=== PATIENT | female | born 1935 | race Hispanic/Latino ===

== ENCOUNTER 2016-07-16 09:32 | Emergency (ER) | payer MEDICARE, BC ==
[2016-07-16 09:47] VITALS: BMI 34.2
[2016-07-16 09:51] VITALS: TEMP 98.2; O2SAT 96
[2016-07-16] MEDS ORDERED: Tmp-Smz 800 mg-160 mg DS Tab PO STA (10:09)
--- NOTE | 2016-07-16 10:09 | ED PDOC ---
Arrival/HPI - General Chief Complaint: Abnormal Skin Integrity Time Seen by Provider: 07/16/16 10:02 Historian: Patient - History of Present Illness Narrative History of Present Illness (Text): 07/16/16 10:02 80 y/o female, pmh including htn/CAD/DM/hypothyroidism, allergic to penicillin, last tetanu 2 years ago, c/o lt. forearm tear x 2 days. Pt. stated that she is on the coumadin, hit the lt. forearm against the furniture about 2 days ago, resulted in small skin tear, here for the wound evaluation and management. Pt. has no forearm pain, no numbness or tingling, no difficulty moving the entire lt. upper extremity, no night sweat, no chest pain or shortness of breath, no change on the coumadin 2.5mg po, no other medical or psychological complaints. Past Medical History - Provider Review Nursing Documentation Reviewed: Yes - Infectious Disease Hx of Infectious Diseases: None - Tetanus Immunization Tetanus Immunization: Unknown - Reproductive Menopause: Yes - Cardiac Hx Cardiac Disorders: Yes Hx Hypertension: Yes Hx Pacemaker: No - Pulmonary Hx Respiratory Disorders: Yes (SMOKED A TEENAGER.QUIT) - Neurological Hx Neurological Disorder: Yes HX Cerebrovascular Accident: Yes Hx Dizziness: Yes (VERTIGO) - HEENT Hx HEENT Disorder: Yes Hx Cataracts: Yes (WITH SX) - Renal Hx Renal Disorder: No - Endocrine/Metabolic Hx Endocrine Disorders: Yes Hx Diabetes Mellitus Type 2: Yes Hx Hypothyroidism: Yes - Hematological/Oncological Hx Blood Disorders: Yes Hx Shingles: Yes - Integumentary Hx Dermatological Disorder: Yes Hx Eczema: Yes Other/Comment: 06-22-16 UNDER THE BREAST FOLD,ABDOMINAL FOLD,BILATERAL GROIN AREA WITH MASD.REDDENED SKIN,MOIST AREA WITH FOUL FUNGAL SMELL. BILATERAL LE EDEMA MORE TO LEFT.EDEMA +2." TOP OF FOOT.PUFFY " - Musculoskeletal/Rheumatological Hx Musculoskeletal Disorders: Yes (HAIRLINE FX TO ANKLE) Hx Falls: Yes Hx Unsteady Gait: Yes (CANE) - Gastrointestinal Hx Gastrointestinal Disorders: Yes (CHOLECYSTECTOMY,APPENDECTOMY,) Hx Gastroesophageal Reflux: Yes - Genitourinary/Gynecological Hx Genitourinary Disorders: No - Psychiatric Hx Emotional Abuse: No Hx Physical Abuse: No Hx Substance Use: No - Surgical History Hx Appendectomy: Yes Hx Cardiac Catheterization: Yes (3 stents) Hx Cholecystectomy: Yes Hx Coronary Stent: Yes Hx Hysterectomy: Yes Other/Comment: TONSILLECTOMY - Anesthesia Hx Anesthesia Reactions: No Hx Malignant Hyperthermia: No - Suicidal Assessment Feels Threatened In Home Enviroment: No Family/Social History - Physician Review Nursing Documentation Reviewed: Yes Family/Social History: Unknown Family HX Smoking Status: Former Smoker Hx Alcohol Use: No Hx Substance Use: No Hx Substance Use Treatment: No Allergies/Home Meds Allergies/Adverse Reactions: Allergies lactose Allergy (Severe, Verified 06/22/16 20:17) DIARRHEA Penicillins Allergy (Severe, Verified 06/22/16 20:17) Epigastric Pain Pork/Porcine Containing Products Allergy (Severe, Verified 06/22/16 20:17) VOMITING Home Medications: Home Meds Medication Instructions Recorded Confirmed Cinacalcet [Sensipar] 30 mg PO TTS 10/04/15 06/22/16 Citalopram Hydrobromide [Celexa] 20 mg PO QAM 10/04/15 06/22/16 Clonazepam [Klonopin] 0.5 mg PO BID 10/04/15 06/22/16 Insulin Human NPH/Reg [HumuLIN 20 units SC ACBD 10/04/15 07/16/16 70/30 (NPH/Reg)] Isosorbide Mononitrate [Imdur] 60 mg PO QAM 10/04/15 07/16/16 Levothyroxine [Synthroid] 0.112 mg PO QAM 10/04/15 07/16/16 Loperamide [Imodium] 2 mg PO PRN PRN 10/04/15 07/16/16 Meclizine HCl [Antivert] 12.5 mg PO BID PRN 10/04/15 07/16/16 Omeprazole [Prilosec] 20 mg PO QAM 10/04/15 07/16/16 Ursodiol [Actigall] 300 mg PO BID 10/04/15 07/16/16 Warfarin Sodium [Jantoven] 2.5 mg PO HS 10/04/15 07/16/16 Review of Systems - Review of Systems Constitutional: absent: Fatigue, Fevers Eyes: absent: Vision Changes ENT: absent: Hearing Changes Cardiovascular: absent: Chest Pain Gastrointestinal: absent: Abdominal Pain, Nausea, Vomiting Musculoskeletal: absent: Arthralgias, Back Pain Skin: Other (abrasion). absent: Pruritis, Skin Lesions, Laceration, Abscess, Ulcer, Cellulitis Neurological: absent: Headache, Dizziness, Focal Weakness, Gait Changes, Speech Changes, Facial Droop, Disequilibrium Physical Exam Vital Signs Reviewed: Yes Vital Signs Temp Pulse Resp BP Pulse Ox 07/16/16 09:32 98.2 F 73 18 142/76 96 Temperature: Afebrile Blood Pressure: Normal Pulse: Regular Respiratory Rate: Normal Appearance: Positive for: Well-Appearing, Non-Toxic, Comfortable Pain Distress: None Mental Status: Positive for: Alert and Oriented X 3 - Systems Exam Head: Present: Atraumatic, Normocephalic Pupils: Present: PERRL Extroacular Muscles: Present: EOMI Conjunctiva: Present: Normal Mouth: Present: Moist Mucous Membranes Neck: Present: Normal Range of Motion Respiratory/Chest: Present: Clear to Auscultation, Good Air Exchange. No: Respiratory Distress, Accessory Muscle Use Cardiovascular: Present: Regular Rate and Rhythm, Normal S1, S2. No: Murmurs Abdomen: Present: Normal Bowel Sounds. No: Tenderness, Distention, Peritoneal Signs Back: Present: Normal Inspection Upper Extremity: Present: Normal Inspection, Other (Lt. upper extremity: visible triangular shape with approx. 1cm length noted, no cellulitis or streaking, no ulcers, no bony tenderness, no scaphoid tenderness, FROM without limitation, sensation intact, motor 5/5, +radial pulse, capillary refill< 2 seconds, neurovascular intact. ). No: Cyanosis, Edema Lower Extremity: Present: Normal Inspection. No: Edema Neurological: Present: GCS=15, CN II-XII Intact, Speech Normal Skin: Present: Warm, Dry, Normal Color. No: Rashes Psychiatric: Present: Alert, Oriented x 3, Normal Insight, Normal Concentration Medical Decision Making ED Course and Treatment: 07/16/16 10:15 -will check INR level -Bactrim ds for prophyatic antibiotic -wound irrigate with normal saline, clean with betadine, bacitracin and gauze dressing. 07/16/16 10:49 -Discharge home with bactrim ds, bacitracin ointment, YOUR INR TODAY IS 1.45, follow up with your own pmd within 2 days for wound check and coumadin adjustment, return to the ER for any new or worsening signs or symptoms. - Lab Interpretations Lab Results: Lab Results 07/16/16 10:11: PT 15.7 H, INR 1.45 H, APTT 32.9 H I have reviewed the lab results: Yes Interpretation: Abnormal lab values (INR 1.45) - Medication Orders Current Medication Orders: Discontinued Medications Trimethoprim/Sulfamethoxazole (Bactrim Ds Tab) 1 tab PO STAT STA PRN Reason: Protocol Stop: 07/16/16 10:10 Last Admin: 07/16/16 10:29 Dose: 1 TAB - PA / [employer] / Resident Statement /DO has reviewed & agrees with the documentation as recorded. Disposition/Present on Arrival - Present on Arrival Any Indicators Present on Arrival: No History of DVT/PE: No History of Uncontrolled Diabetes: No Urinary Catheter: No History of Decub. Ulcer: No History Surgical Site Infection Following: None - Disposition Have Diagnosis and Disposition been Completed?: Yes Diagnosis: Abrasion, INR (international normal ratio) abnormal Disposition: HOME/ ROUTINE Disposition Time: 10:16 Patient Plan: Discharge Patient Problems: Current Active Problems Problem Status Diagnosed Abdominal pain Acute Cholecystitis Acute Dizziness Acute Edema Acute Hypokalemia Acute Condition: GOOD Discharge Instructions (ExitCare): Abrasion (ED) Print Language: AMHARIC Additional Instructions: Discharge home with bactrim ds, bacitracin ointment, YOUR INR TODAY IS 1.45, follow up with your own pmd within 2 days for wound check and coumadin adjustment, return to the ER for any new or worsening signs or symptoms. Prescriptions: Bacitracin 1 appl TP BID #1 tube Sulfamethoxazole/Trimethoprim [Bactrim DS 800 mg-160 mg] 1 tab PO BID #14 tab Referrals: Deena Jones MD [Staff Provider] - Follow up with primary Forms: WORK NOTE
[2016-07-16 10:34] LABS: INR 1.45 (0.93-1.08); PARTIAL THROMBOPLASTIN TIME 32.9 Seconds (23.7-30.8)
[2016-07-16 11:19] VITALS: BP 138/70; PULSE 77; RESP 16
== END 2016-07-16 11:04 | disposition home or self-care (01) ==
LOC: ED 09:32
DX: S50.812A Abrasion of left forearm, initial encounter (principal); W22.03XA Walked into furniture, initial encounter; Y93.9 Activity, unspecified; Y92.89 Other specified places as the place of occurrence of the external cause; R79.1 Abnormal coagulation profile

== ENCOUNTER 2016-07-18 10:41 | Emergency (ER) | payer MEDICARE, BC ==
[2016-07-18 10:57] VITALS: BMI 34.7
[2016-07-18 11:01] VITALS: BP 140/76; PULSE 77; RESP 15; TEMP 97.6; O2SAT 95
--- NOTE | 2016-07-18 11:33 | ED PDOC ---
Arrival/HPI - General Chief Complaint: Wound Check Time Seen by Provider: 07/18/16 11:18 Historian: Patient - History of Present Illness Narrative History of Present Illness (Text): 07/18/16 11:33 80 year old female returns to the emergency department for wound check because her PMD is not in the office today. Patient states she was treated in the emergency department two days ago for the same complaint of wound on the left forearm. At that time, she had a bleeding skin tear on the forearm. Patient states she was started on antibiotics and is taking them as prescribed. Denies pain or pus to the area. No longer bleeding. PMD: Dr. Jones Time/Duration: < week Symptom Course: Improving Modifying Factors (Text): None Associated Symptoms (Text): None Past Medical History - Provider Review Nursing Documentation Reviewed: Yes - Infectious Disease Hx of Infectious Diseases: None - Tetanus Immunization Tetanus Immunization: Unknown - Cardiac Hx Cardiac Disorders: Yes Hx Hypertension: Yes Hx Pacemaker: No - Pulmonary Hx Respiratory Disorders: No - Neurological Hx Neurological Disorder: Yes HX Cerebrovascular Accident: Yes Hx Dizziness: Yes (VERTIGO) - HEENT Hx HEENT Disorder: Yes Hx Cataracts: Yes (WITH SX) - Renal Hx Renal Disorder: No - Endocrine/Metabolic Hx Endocrine Disorders: Yes Hx Diabetes Mellitus Type 2: Yes Hx Hypothyroidism: Yes - Hematological/Oncological Hx Blood Disorders: Yes Hx Shingles: Yes - Integumentary Hx Dermatological Disorder: Yes Hx Eczema: Yes - Musculoskeletal/Rheumatological Hx Musculoskeletal Disorders: Yes (HAIRLINE FX TO ANKLE) Hx Falls: Yes Hx Unsteady Gait: Yes (CANE) - Gastrointestinal Hx Gastrointestinal Disorders: Yes (CHOLECYSTECTOMY,APPENDECTOMY,) Hx Gastroesophageal Reflux: Yes - Genitourinary/Gynecological Hx Genitourinary Disorders: No - Psychiatric Hx Psychophysiologic Disorder: Yes Hx Anxiety: Yes Hx Emotional Abuse: No Hx Physical Abuse: No Hx Substance Use: No - Surgical History Hx Appendectomy: Yes Hx Cardiac Catheterization: Yes (3 stents) Hx Cholecystectomy: Yes Hx Coronary Stent: Yes Hx Hysterectomy: Yes Other/Comment: TONSILLECTOMY - Anesthesia Hx Anesthesia Reactions: No Hx Malignant Hyperthermia: No - Suicidal Assessment Feels Threatened In Home Enviroment: No Family/Social History - Physician Review Nursing Documentation Reviewed: Yes Family/Social History: Unknown Family HX Smoking Status: Former Smoker Hx Alcohol Use: No Hx Substance Use: No Hx Substance Use Treatment: No Allergies/Home Meds Allergies/Adverse Reactions: Allergies lactose Allergy (Severe, Verified 07/18/16 10:57) DIARRHEA Penicillins Allergy (Severe, Verified 07/18/16 10:57) Epigastric Pain Pork/Porcine Containing Products Allergy (Severe, Verified 07/18/16 10:57) VOMITING Home Medications: Home Meds Medication Instructions Recorded Confirmed Cinacalcet [Sensipar] 30 mg PO TTS 10/04/15 06/22/16 Citalopram Hydrobromide [Celexa] 20 mg PO QAM 10/04/15 06/22/16 Clonazepam [Klonopin] 0.5 mg PO BID 10/04/15 06/22/16 Insulin Human NPH/Reg [HumuLIN 20 units SC ACBD 10/04/15 07/16/16 70/30 (NPH/Reg)] Isosorbide Mononitrate [Imdur] 60 mg PO QAM 10/04/15 07/16/16 Levothyroxine [Synthroid] 0.112 mg PO QAM 10/04/15 07/16/16 Loperamide [Imodium] 2 mg PO PRN PRN 10/04/15 07/16/16 Meclizine HCl [Antivert] 12.5 mg PO BID PRN 10/04/15 07/16/16 Omeprazole [Prilosec] 20 mg PO QAM 10/04/15 07/16/16 Ursodiol [Actigall] 300 mg PO BID 10/04/15 07/16/16 Warfarin Sodium [Jantoven] 2.5 mg PO HS 10/04/15 07/16/16 Review of Systems - Physician Review All systems were reviewed & negative as marked: Yes - Review of Systems Skin: Other (left forearm wound already evaluated for with no new complaints). absent: Rash Physical Exam - Physical Exam Narrative Physical Exam (Text): Constitutional: No acute distress. Head: Normocephalic. Atraumatic. Eyes: PERRL. ENT: Moist mucous membranes. Musculoskeletal: No tenderness or swelling of extremities. Skin: Left forearm wound healing properly with no surrounding erythema, no induration, no discharge, no tenderness Neurologic: Alert, no focal deficit. Vital Signs Reviewed: Yes Vital Signs Temp Pulse Resp BP Pulse Ox 07/18/16 10:57 97.6 F 77 15 140/76 95 Temperature: Afebrile Blood Pressure: Normal Pulse: Regular Respiratory Rate: Normal Appearance: Positive for: Well-Appearing, Non-Toxic, Comfortable Pain Distress: None Mental Status: Positive for: Alert and Oriented X 3 Medical Decision Making ED Course and Treatment: Impression: 80 year old female presents for wound check and INR level because PMD is out of the office. Plan: -- Hematology -- Reassess and disposition Prior Visits: Notes and results from previous visits were reviewed. Patient last seen in the ED on 07/16/16 for laceration to left arm and discharged home. Progress Notes: Patient was on warfarin but stopped due to bleeding skin tear. Will check today. Patient wishes to leave after blood draw and not wait for results. Discussed with Dr. Jones. He states patient can call his office tomorrow, he will follow up results and adjust warfarin accordingly. - Scribe Statement The provider has reviewed the documentation as recorded by the Cyn Robert Provider Scribe Attestation: All medical record entries made by the Cyn were at my direction and personally dictated by me. I have reviewed the chart and agree that the record accurately reflects my personal performance of the history, physical exam, medical decision making, and the department course for this patient. I have also personally directed, reviewed, and agree with the discharge instructions and disposition. Disposition/Present on Arrival - Present on Arrival Any Indicators Present on Arrival: No History of DVT/PE: No History of Uncontrolled Diabetes: No Urinary Catheter: No History of Decub. Ulcer: No History Surgical Site Infection Following: None - Disposition Have Diagnosis and Disposition been Completed?: Yes Diagnosis: Visit for wound check Disposition: HOME/ ROUTINE Disposition Time: 12:08 Patient Plan: Discharge Patient Problems: Current Active Problems Problem Status Diagnosed Abdominal pain Acute Cholecystitis Acute Dizziness Acute Edema Acute Hypokalemia Acute Condition: STABLE Discharge Instructions (ExitCare): Skin Tear (ED) Referrals: Deena Jones MD [Primary Care Provider] - Follow up with primary
[2016-07-18 12:39] LABS: INR 1.63 (0.93-1.08); PARTIAL THROMBOPLASTIN TIME 34.9 Seconds (23.7-30.8)
== END 2016-07-18 12:31 | disposition home or self-care (01) ==
LOC: ED 10:41
DX: Z51.89 Encounter for other specified aftercare (principal); I10 Essential (primary) hypertension

== ENCOUNTER 2016-09-28 20:54 | Inpatient (IN) | payer MEDICARE, BC ==
[2016-09-28 21:30] LABS: ADD MANUAL DIFF? NO
--- NOTE | 2016-09-28 21:31 | ED PDOC ---
Arrival/HPI - General Time Seen by Provider: 09/28/16 20:59 Historian: Patient - History of Present Illness Narrative History of Present Illness (Text): 09/28/16 21:30 A 81 year old female, whose past medical history includes hypertension, old stroke and atrial fibrillation (on Coumadin), presents to the emergency department complaining of chest pain and weakness. Patient states symptoms started earlier today. Patient notes currently chest pain is resolved. Patient can't characterize chest pain. pt later noted that Patient notes she has "difficulty writing her checks". pt states she specifically "she could not get the words out". pt was concerned as she had previous cva. onset one hour ago. but denies fevers, headache or any other complaints at this time. 09/28/16 22:17 Symptom Onset: Sudden Symptom Course: Resolved Activities at Onset: Rest Context: Home Past Medical History - Provider Review Nursing Documentation Reviewed: Yes - Infectious Disease Hx of Infectious Diseases: None - Tetanus Immunization Tetanus Immunization: Unknown - Cardiac Hx Cardiac Disorders: Yes Hx Hypertension: Yes Hx Pacemaker: No - Pulmonary Hx Respiratory Disorders: No - Neurological Hx Neurological Disorder: Yes HX Cerebrovascular Accident: Yes Hx Dizziness: Yes (VERTIGO) - HEENT Hx HEENT Disorder: Yes Hx Cataracts: Yes (WITH SX) - Renal Hx Renal Disorder: No - Endocrine/Metabolic Hx Endocrine Disorders: Yes Hx Diabetes Mellitus Type 2: Yes Hx Hypothyroidism: Yes - Hematological/Oncological Hx Blood Disorders: Yes Hx Shingles: Yes - Integumentary Hx Dermatological Disorder: Yes Hx Eczema: Yes - Musculoskeletal/Rheumatological Hx Musculoskeletal Disorders: Yes (HAIRLINE FX TO ANKLE) Hx Falls: Yes Hx Unsteady Gait: Yes (CANE) - Gastrointestinal Hx Gastrointestinal Disorders: Yes (CHOLECYSTECTOMY,APPENDECTOMY,) Hx Gastroesophageal Reflux: Yes - Genitourinary/Gynecological Hx Genitourinary Disorders: No - Psychiatric Hx Psychophysiologic Disorder: Yes Hx Anxiety: Yes Hx Emotional Abuse: No Hx Physical Abuse: No Hx Substance Use: No - Surgical History Hx Appendectomy: Yes Hx Cardiac Catheterization: Yes (3 stents) Hx Cholecystectomy: Yes Hx Coronary Stent: Yes Hx Hysterectomy: Yes Other/Comment: TONSILLECTOMY - Anesthesia Hx Anesthesia Reactions: No Hx Malignant Hyperthermia: No - Suicidal Assessment Feels Threatened In Home Enviroment: No Family/Social History - Physician Review Nursing Documentation Reviewed: Yes Family/Social History: No Known Family HX Smoking Status: Former Smoker Hx Alcohol Use: No Hx Substance Use: No Hx Substance Use Treatment: No Allergies/Home Meds Allergies/Adverse Reactions: Allergies lactose Allergy (Severe, Verified 09/29/16 15:57) DIARRHEA Penicillins Allergy (Severe, Verified 09/29/16 15:57) Epigastric Pain Pork/Porcine Containing Products Allergy (Severe, Verified 09/29/16 15:57) VOMITING Home Medications: Home Meds Medication Instructions Recorded Confirmed Citalopram Hydrobromide [Celexa] 20 mg PO QAM 10/04/15 09/30/16 Insulin Human NPH/Reg [HumuLIN 25 units SC ACBD 10/04/15 09/30/16 70/30 (NPH/Reg)] Isosorbide Mononitrate [Imdur] 60 mg PO QAM 10/04/15 09/30/16 Meclizine HCl [Antivert] 12.5 mg PO BID PRN 10/04/15 09/30/16 Warfarin Sodium [Jantoven] 2.5 mg PO HS 10/04/15 09/30/16 Budesonide [Entocort EC] 2 cap PO DAILY 09/28/16 09/30/16 Levothyroxine [Synthroid] 112 mcg PO DAILY 09/28/16 09/30/16 Omeprazole [Omeprazole] 20 mg PO DAILY 09/28/16 09/30/16 amLODIPine [Norvasc] 5 mg PO DAILY 09/28/16 09/30/16 clonazePAM [clonAZEPAM] 0.5 mg PO BID 09/29/16 09/30/16 Review of Systems - Review of Systems Constitutional: Other (weakness). absent: Fevers Eyes: Normal ENT: Normal Respiratory: Normal Cardiovascular: Chest Pain Gastrointestinal: Normal Genitourinary Female: Normal Musculoskeletal: Normal Skin: Normal Neurological: Normal. absent: Headache Endocrine: Normal Hemo/Lymphatic: Normal Psychiatric: Normal Physical Exam Vital Signs Reviewed: Yes Vital Signs Temp Pulse Pulse Resp BP Pulse Ox 09/29/16 05:20 63 16 136/82 98 09/29/16 01:11 73 16 128/76 98 09/28/16 21:00 80 09/28/16 20:59 98.3 F 75 18 96 09/28/16 20:58 98.3 F 89 18 156/62 H 96 Temperature: Afebrile Blood Pressure: Hypertensive Pulse: Regular Respiratory Rate: Normal Appearance: Positive for: Well-Appearing, Non-Toxic, Comfortable Pain Distress: None Mental Status: Positive for: Alert and Oriented X 3 - Systems Exam Head: Present: Atraumatic, Normocephalic Pupils: Present: PERRL Extroacular Muscles: Present: EOMI Conjunctiva: Present: Normal Mouth: Present: Moist Mucous Membranes Neck: Present: Normal Range of Motion Respiratory/Chest: Present: Clear to Auscultation, Good Air Exchange. No: Respiratory Distress, Accessory Muscle Use Cardiovascular: Present: Regular Rate and Rhythm, Normal S1, S2. No: Murmurs Abdomen: Present: Normal Bowel Sounds. No: Tenderness, Distention, Peritoneal Signs Back: Present: Normal Inspection Upper Extremity: Present: Normal Inspection. No: Cyanosis, Edema Lower Extremity: Present: Normal Inspection. No: Edema Neurological: Present: GCS=15, CN II-XII Intact, Speech Normal Skin: Present: Warm, Dry, Normal Color. No: Rashes Psychiatric: Present: Alert, Oriented x 3, Normal Insight, Normal Concentration Medical Decision Making ED Course and Treatment: 09/28/16 21:26 Impression: A 81 year old male with chest pain and weakness. Differential Diagnosis included but are not limited to: ro acs - pt later reported "difficulty writing her checks", and difficulty "getting words out". neuro intact in emergency room. dr tellez bedside upon arrival. codets stroke Plan: -- EKG -- CT head -- chest xray -- labs -- Urinalysis -- Reassess and disposition Prior Visits: Notes and results from previous visits were reviewed. Patient last reported to the emergency department on 07/18/16 for evaluation of wound check and INR level. Progress Notes: 09/28/16 21:31 Code stroke called. Case discussed with Dr. Wisdom, symptoms are resolved. low nih,, not TPA candidate. CT Head Without Intravenous Contrast IMPRESSION: Sinus disease involving left maxillary sinus, evidence of previous left maxillary sinus surgery, no acute intracranial process is seen. Age-related atrophy and chronic white matter ischemic changes as described. Dictated and Authenticated by: Mateus Stein MD 09/28/2016 9:49 PM Eastern Time ([place] & [place]) 09/28/16 22:[address] tellez. accepts to [facility] for admission. - Lab Interpretations Microbiology Results: Microbiology Results 09/28/16 21:23 Blood-Venous Blood Culture - Preliminary NO GROWTH AFTER 24 HOURS 09/28/16 21:00 Blood-Venous Blood Culture - Preliminary NO GROWTH AFTER 24 HOURS Lab Results: 09/28/16 21:23 09/28/16 21:23 Lab Results 09/28/16 21:23: Sodium 138, Potassium 3.3 L, Chloride 105, Carbon Dioxide 27, Anion Gap 9 L, BUN 14, Creatinine 1.0, Est GFR ( Amer) > 60, Est GFR (Non -Af Amer) 53, Random Glucose 207 H, Calcium 9.5, Magnesium 1.6 L, Total Bilirubin 1.5 H, AST 16, ALT 21, Alkaline Phosphatase 130, Lactate Dehydrogenase 402, Total Creatine Kinase 48, Troponin I < 0.01, Total Protein 6.6, Albumin 3.4, Globulin 3.3, Albumin/Globulin Ratio 1.0 L 09/28/16 21:23: PT 22.9 H, INR 2.12 H, APTT 39.7 H 09/28/16 21:23: WBC 6.4 D, RBC 4.28, Hgb 12.8, Hct 38.9, MCV 90.9, MCH 29.9, MCHC 32.9, RDW 13.3, Plt Count 200, MPV 11.4 H, Gran % 66.8, Lymph % (Auto) 22.4 , Haakon % (Auto) 8.5 H, Eos % (Auto) 2.0, Baso % (Auto) 0.3, Gran # 4.30, Lymph # 1.4, Haakon # 0.6, Eos # 0.1, Baso # 0.02 I have reviewed the lab results: Yes - RAD Interpretation Radiology Orders: 09/28/16 21:15 CHEST PORTABLE [RAD] Stat 09/28/16 21:16 HEAD W/O CONTRAST [CT] Stat - EKG Interpretation Interpreted by ED Physician: Yes Type: 12 lead EKG - Medication Orders Current Medication Orders: Discontinued Medications Amlodipine Besylate (Norvasc) 5 mg PO DAILY RYAN Last Admin: 09/30/16 09:18 Dose: 5 mg Aspirin (Aspirin) 325 mg PO STAT STA Stop: 09/28/16 22:14 Last Admin: 09/28/16 22:54 Dose: 325 mg Citalopram Hydrobromide (Celexa) 20 mg PO QAM [facility] Last Admin: 09/30/16 09:18 Dose: 20 mg Clonazepam (Klonopin) 0.5 mg PO DAILY [facility] PRN Reason: Protocol Last Admin: 09/30/16 09:18 Dose: 0.5 mg Home Med (Home Med) 1 unit PO DAILY [facility] Last Admin: 09/29/16 10:56 Dose: 1 unit Home Med (Home Med) 2 unit PO DAILY [facility] Last Admin: 09/30/16 09:19 Dose: 2 unit Insulin Human Regular (Humulin R Low) 0 units SC [facility] PRN Reason: Protocol Last Admin: 09/29/16 21:06 Dose: Not Given Non-Admin Reason: Blood Sugar Parameter Isosorbide Mononitrate (Imdur) 60 mg PO QAM [facility] Last Admin: 09/30/16 09:18 Dose: 60 mg Levothyroxine Sodium (Synthroid) 112 mcg PO DAILY [facility] Last Admin: 09/30/16 09:18 Dose: 112 mcg Magnesium Oxide (Mag-Ox) 400 mg PO BID [facility] Last Admin: 09/30/16 09:18 Dose: 400 mg Pantoprazole Sodium (Protonix Ec Tab) 40 mg PO ACB [facility] Last Admin: 09/29/16 08:16 Dose: 40 mg Pneumococcal Polyvalent Vaccine (Pneumovax 23 Vaccine) 0.5 ml IM .ONCE ONE Stop: 09/29/16 18:35 Potassium Chloride (K-Dur 20 Meq Er Tab) 40 meq PO STAT STA Stop: 09/28/16 21:56 Last Admin: 09/28/16 22:01 Dose: Not Given Non-Admin Reason: Patient Refused Potassium Chloride (Potassium Chloride Oral Soln) 40 meq PO STAT STA Stop: 09/28/16 22:02 Last Admin: 09/28/16 22:54 Dose: 40 meq Warfarin Sodium (Coumadin) 2.5 mg PO 1800 ONE PRN Reason: Protocol Stop: 09/29/16 18:01 Last Admin: 09/29/16 18:00 Dose: 2.5 mg Warfarin Sodium (Coumadin) 5 mg PO 1800 RYAN PRN Reason: Protocol Last Admin: 09/30/16 11:57 Dose: 5 mg NIHSS Scale ([place]) Time Performed: 21:31 - How Severe is the Stoke Baseline Level of Consciousness: 0=Alert LOC to Questions: 0=Both comments correct LOC to commands: 0=Obeys both correctly Best Gaze: 0=Normal Visual: 0=No visual loss Facial: 0=Normal Motor Arm - Left: 0=No drift Motor Arm - Right: 0=No drift Motor Leg - Left: 0=No drift Motor Leg - Right: 0=No drift Limb Ataxia: 0=Absent Sensory: 0=Normal Best Language: 0=No aphasia Dysarthia: 0=Normal articulation Extinction & Inattention (Neglect): 0=Normal, no object Score: 0 Risk Level: No Stroke Risk rTPA Inclusion/Exclusion - Refusal of Treatment Patient Refused Treatment: No - Inclusion Criteria for Altepase Patient is 18 years or Older: Yes The Clinical Diagnosis of Ischemic Stroke That is Causing a Potentially Disabling Neurological Deficit: No Time of Onset is Well Established to be Less Than 270 Minute Before Treatment Would Begin: Yes Risk/Benefit Discussed With Patient/Family Member Present: No - Scribe Statement The provider has reviewed the documentation as recorded by the Cyn rBown Provider Scribe Attestation: All medical record entries made by the Kyungibdelvin were at my direction and personally dictated by me. I have reviewed the chart and agree that the record accurately reflects my personal performance of the history, physical exam, medical decision making, and the department course for this patient. I have also personally directed, reviewed, and agree with the discharge instructions and disposition. Disposition/Present on Arrival - Present on Arrival Any Indicators Present on Arrival: No History of DVT/PE: No History of Uncontrolled Diabetes: No Urinary Catheter: No History Surgical Site Infection Following: None - Disposition Have Diagnosis and Disposition been Completed?: Yes Diagnosis: Chest pain, Weakness Disposition: HOSPITALIZED Disposition Time: 22:20 Condition: STABLE
[2016-09-28 21:41] LABS: BASO # 0.02 K/mm3 (0.0-2.0); BASO % 0.3 % (0.0-3.0); EOS # 0.1 (0.0-0.7); GRAN % 66.8 % (50.0-68.0); HEMATOCRIT 38.9 % (36.0-48.0); LYMPH # 1.4 (1.2-3.4); LYMPH % 22.4 % (22.0-35.0); MEAN CELL VOLUME 90.9 fL (80.0-105.0); MEAN CORPUSCULAR HEMOGLOBIN 29.9 pg (25.0-35.0); MEAN CORPUSCULAR HGB CONC 32.9 g/dl (31.0-37.0); MEAN PLATELET VOLUME 11.4 fl (7.0-11.0); MONO # 0.6 (0.1-0.6); MONO % 8.5 % (1.0-6.0); PLATELET COUNT 200 10^3/uL (120.0-450.0); RED CELL DISTRIBUTION WIDTH 13.3 % (11.5-14.5); WHITE BLOOD COUNT 6.4 10^3/ul (4.5-11.0)
[2016-09-28 21:46] LABS: INR 2.12 (0.93-1.08); PARTIAL THROMBOPLASTIN TIME 39.7 Seconds (23.7-30.8)
[2016-09-28 21:52] LABS: ALKALINE PHOSPHATASE 130 U/L (38-133); ALT/SGPT 21 U/L (7-56); AST/SGOT 16 U/L (15-39); BILIRUBIN,TOTAL 1.5 mg/dL (0.2-1.3); BLOOD UREA NITROGEN 14 mg/dL (7-21); CALCIUM 9.5 mg/dL (8.4-10.5); CARBON DIOXIDE 27 mmol/L (21-33); CHLORIDE 105 mmol/L (98-107); GFR AFRICAN-AMERICAN > 60; GLUCOSE,RANDOM 207 mg/dL (70-110); MAGNESIUM 1.6 mg/dL (1.7-2.2); POTASSIUM 3.3 mmol/L (3.6-5.0); SODIUM 138 mmol/L (132-148); TOTAL PROTEIN 6.6 g/dL (5.8-8.3)
[2016-09-28] MEDS ORDERED: Potassium Chloride 20 mEq ER Tab PO STA (21:55)
[2016-09-28] MEDS ORDERED: Potassium Chloride 40 mEq/30 ml LIQ UD PO STA (22:01)
[2016-09-28 22:04] LABS: TROPONIN I < 0.01 ng/mL
[2016-09-28 22:41] LABS: PH,URINE 6.5 (4.7-8.0); URINE BILIRUBIN NEGATIVE (NEGATIVE); URINE BLOOD NEGATIVE (NEGATIVE); URINE GLUCOSE (UA) NEGATIVE (NEGATIVE); URINE KETONE NEGATIVE (NEGATIVE); URINE LEUKOCYTE ESTERASE NEGATIVE Leu/uL (NEGATIVE); URINE PROTEIN NEGATIVE mg/dL (<30 mg/dL); URINE UROBILINOGEN 0.2 E.U./dL (<1 E.U./dL)
[2016-09-28 22:46] LABS: URINE APPEARANCE CLEAR (CLEAR); URINE COLOR STRAW (YELLOW)
--- NOTE | 2016-09-28 23:41 | HP ---
HISTORY OF PRESENT ILLNESS: A 81-year-old female brought to [facility] by her daughter. The patient states that she developed chest pain. She was in the process of attempting to write bigg e bills. She also noticed that she was having difficulty writing. She denies any shortness of breat h, loss of consciousness. She has been having chills off and on for several days. SOCIAL HISTORY: She is a nonsmoker, nondrinker, nondrug user. ALLERGY HISTORY: LACTOSE, PENICILLIN, PORK PRODUCTS. PAST MEDICAL HISTORY: Stroke with cerebellar ataxia, insulin-dependent diabetes, anxiety disorder, u rinary tract infection, vertigo, paroxysmal atrial fibrillation, insulin-dependent diabetes, colitis, hypothyroid disease, hypertension, ____ cyst, gait disorder. PHYSICAL EXAMINATION: GENERAL: She seems to be alert and oriented x 3. VITAL SIGNS: Temp is 98.3, pulse is 89, blood pressure is 156/62, respiratory rate is 18, oxygen sat uration was 96% on room air. NECK: Supple. LUNGS: Show diminished breath sounds at the bases. HEART: An S1, S2 rhythm. Grade II/ systolic murmur. ABDOMEN: Soft, scaphoid with positive bowel sounds. EXTREMITIES: Show no evidence of edema. NEUROLOGIC: The patient is alert and oriented x 3. LABORATORY DATA: Shows the sodium 138, potassium 3.3, chloride 105, BUN of 14, creatinine of 1. Ran dom blood sugar is 207. Magnesium is 1.6. Total bilirubin is 1.5. Troponin is 0.01. PT is 22.9 wi th an INR of 2.12, PTT is 39.7. CBC shows WBC of 6.4, RBC 4.28, hemoglobin 12.8, hematocrit 38.9, MC V of 90, platelet count is 200. Emergency Room physician reports that the chest x-ray is clear and t hat the CT of the head shows no acute findings. Code stroke was called given the patient's clinical presentation by the Emergency Room physician and a consult was placed with neurology. Cardiac enzymes will be ordered and consult will be placed with cardiology. The patient will be pancultured of blood and urine, history of chills. We will get an infectious disease consult, rule out systemic inflammatory response disorder. We will request an ec hocardiogram as well. Follow the patient's cardiac enzymes, follow her blood sugar. Clinically brittney tor the patient on telemetry. More than 50 minutes have been spent reviewing the data, discussing the treatment plan with the patie nt and the family. Deena Jones MD cc: [id number] TT: 09/28/2016 23:41:22 sn
[2016-09-29 06:26] LABS: INR 2.2 (0.93-1.08)
[2016-09-29 06:35] LABS: BLOOD UREA NITROGEN 15 mg/dL (7-21); CALCIUM 9.5 mg/dL (8.4-10.5); CARBON DIOXIDE 29 mmol/L (21-33); CHLORIDE 107 mmol/L (98-107); GFR AFRICAN-AMERICAN > 60; GLUCOSE,RANDOM 174 mg/dL (70-110); POTASSIUM 3.6 mmol/L (3.6-5.0); SODIUM 141 mmol/L (132-148)
[2016-09-29 07:00] LABS: TROPONIN I < 0.01 ng/mL
[2016-09-29] MEDS ORDERED: Pantoprazole 40 mg EC Tab PO SCH (07:30)
--- NOTE | 2016-09-29 09:15 | CT ---
PROCEDURE: CT HEAD WITHOUT CONTRAST. HISTORY: weakness COMPARISON: 06/22/2016. TECHNIQUE: Axial computed tomography images were obtained through the head/brain without intravenous contrast. Radiation dose: Total exam DLP = 895.89 mGy-cm. This CT exam was performed using one or more of the following dose reduction techniques: Automated exposure control, adjustment of the mA and/or kV according to patient size, and/or use of iterative reconstruction technique. FINDINGS: HEMORRHAGE: No intracranial hemorrhage. BRAIN: No mass effect or edema. Cortical atrophy, periventricular small vessel disease VENTRICLES: Unremarkable. No hydrocephalus. CALVARIUM: Unremarkable. PARANASAL SINUSES: Chronic left maxillary sinusitis. MASTOID AIR CELLS: Unremarkable as visualized. No inflammatory changes. OTHER FINDINGS: None. IMPRESSION: No acute intracranial abnormalities. No significant findings to account for the clinical presentation. No significant interval change compared to the prior examination(s). Concordant results (preliminary interpretation) provided by [employer]. Procedure Completed: 21:32 Preliminary ([facility]Rad) Report: Dictated and Authenticated: 21:49. Final Interpretation: 09:13. September 29, 2016.
[2016-09-29] MEDS ORDERED: BUDESONIDE PO SCH (10:00)
[2016-09-29 10:02] LABS: CHOLESTEROL 164 mg/dL (130-200)
--- NOTE | 2016-09-29 10:11 | RAD ---
HISTORY: Weakness. Portable study 21:40. COMPARISON: 09/11/2016. FINDINGS: LUNGS: No active pulmonary disease. PLEURA: No significant pleural effusion identified, no pneumothorax apparent. CARDIOVASCULAR: No radiographic findings to suggest acute or significant cardiovascular disease. OSSEOUS STRUCTURES: No significant abnormalities. VISUALIZED UPPER ABDOMEN: Normal. OTHER FINDINGS: None. IMPRESSION: No active disease. No significant interval change compared to the prior examination(s).
--- NOTE | 2016-09-29 10:14 | PN ---
DATE: 09/29/2016 SUBJECTIVE: This is a 81-year-old female resting quietly in bed this morning. Nursing staff relates that there were no particular problems. VITAL SIGNS: Show a temp of 98.3. The pulse is 63, blood pressure is 136/82, respiratory rate is 16, oxygen sat is 98% on room air. LABORATORY DATA: Shows sodium 141, potassium 3.6, chloride 107, BUN is 15, creatinine is 1. Random blood sugar is 177. The LDH is 332. Troponin is 0.01. CBC: PT 23.8 with an INR of 2.2. PHYSICAL EXAMINATION: GENERAL: She is alert and oriented x 3. NECK: Supple. LUNGS: Clear. HEART: Has an S1, S2 rhythm. ABDOMEN: Soft, scaphoid, positive bowel sounds. There is an inflamed area over her right scapular area. EXTREMITIES: Showed trace edema. NEUROLOGIC: She is alert and oriented x 3. The patient was admitted with complaints of chest pain. She states that this morning, she has some mild chest discomfort as well. Second, she also states that over the past week, she has been noticing that when writing her handwriting seems to be changed. CT scan of the head was reported as showing no acute findings. Chest x-ray was verbally reported as being clear. Her EKG was reported as showing no acute findings. CURRENT MEDICATIONS: Currently, the patient is on Celexa 20 mg daily, home medication for colitis, Imdur 60 mg daily, magnesium oxide 400 mg b.i.d., Norvasc 5 mg daily, Protonix 40 mg daily and Synthroid 112 mcg daily. ASSESSMENT AND PLAN: 1. This 81-year-old female with insulin-dependent diabetes, paroxysmal atrial fibrillation by history, remote history of stroke with cerebellar ataxic gait, hypothyroid disease, colitis, lactose intolerance, anxiety disorder, history of methicillin-resistant Staphylococcus aureus infection in the past and history of hypertension. We will continue to monitor the patient on telemetry. The patient is to be seen by neurology, infectious disease, and cardiology. Follow the patient's labs. 2.R/O DVT PE Doppler legs,CT chest ,D dimer Deena Jones MD cc: [id number] TT: 09/29/2016 10:13:33 Confirmation # [id number] Dictation # [id number] MTDD
--- NOTE | 2016-09-29 10:31 | CARD ---
APPROVED REPORT EKG Measurement Heart [id number] <Conclusion> Normal sinus rhythm Left anterior fascicular block PRWP, possible ASMI, age unknown NSSTW changes
[2016-09-29] MEDS: Levothyroxine 112 MCG TAB PO SCH (10:51)
[2016-09-29] MEDS: Magnesium Oxide 400 mg Tab UD PO SCH ×2 (10:53→18:00)
--- NOTE | 2016-09-29 11:13 | CON ---
DATE: 09/29/2016 The patient was seen room 272, bed 1. CHIEF COMPLAINT: Chest pain times several days. HISTORY OF PRESENT ILLNESS: This is a 81-year-old female with history of cerebrovascular accident an d history of chronic cholecystitis, history of diabetes, hypertension, coronary artery disease, anxie ty, dermatitis, and tubular adenoma, history of hysterectomy, history of colon biopsy. The patient a lso had laparoscopic cholecystectomy in 11/12/2014. IS ALLERGIC TO PENICILLIN, PORK, AND LACTOSE, adm itted with chest pain times several days' duration and difficulty concentrating. She does periods of chills, but no fevers, no headaches, no shortness of breath and cough, no hemoptysis, no abdominal p ain, diarrhea or constipation. No bright red blood per rectum. PAST MEDICAL HISTORY: Significant for hypertension, coronary artery disease, diabetes mellitus, cere brovascular accident, anxiety, dermatitis and tubular adenoma. PAST SURGICAL HISTORY: Significant for appendectomy and laparoscopic cholecystectomy in 11/12/2014 a nd colon biopsy which showed tubular adenoma and a hysterectomy. ALLERGIES: THE PATIENT IS ALLERGIC TO PENICILLIN, TYPE OF ALLERGY IS NOT CLEAR. SHE THINKS SHE HAD SOME ABDOMINAL DISCOMFORT WITH THE PENICILLIN SHE TOOK. MEDICATIONS AT HOME: Included her Coumadin, omeprazole and Norvasc. PHYSICAL EXAMINATION: GENERAL: The patient is in bed with a temperature of 98, heart rate of 89, respiratory rate of 18. The blood pressure is 156/60. HEENT: Unremarkable. NECK: Supple. LUNGS: Have decreased breath sounds. HEART: Normal S1, S2. ABDOMEN: Soft, nontender. EXTREMITIES: Examination of the left leg, the patient's left leg has edema and swollen. Pulses are intact. LABORATORY EXAMINATION: Reveals the patient's white count of 6.4, hemoglobin of 12, platelets of 200 . BUN of 14, creatinine of 1.0. Total bilirubin is 1.5. Urinalysis is noted. Microbiology is pend ing. The Emergency Room chart is reviewed. History and physical examination by Dr. Jones is reviewed and today's progress note is also reviewed. The patient's old microbiology is reviewed. The patient di d have urinary tract infection with E. coli in the last month and also had an abdominal culture posit maykel for MRSA on 04/2015. ASSESSMENT AND PLAN: A 81-year-old female with cerebrovascular accident, diabetes, hypertension, and coronary artery disease, anxiety, history of dermatitis and tubular adenoma, now presenting with tiara st pain, etiology of which is not clear. Troponins are negative. Chest x-ray is negative. CAT scan of the head is negative. Must rule out deep venous thrombosis and consider PE and troponins are neg ative. We will order a stat Doppler to lower extremity, CAT scan of the chest and stat D-dimer. No role in antibiotics at this point and blood cultures have been also ordered and will follow closely w ith you. Case discussed with Dr. Jones. Buzz Smith MD cc: [id number] TT: 09/29/2016 11:12:51 Confirmation # [id number] Dictation # [id number]
[2016-09-29] MEDS: Insulin Human NPH/Reg 70/30 Vial(3 ml) SC SCH ×2 (11:15→17:59)
--- NOTE | 2016-09-29 12:52 | CON ---
DATE: 09/29/2016 CHIEF COMPLAINT: Difficulty in writing. HISTORY OF PRESENT ILLNESS: This is a 81-year-old woman with history of paroxysmal atrial fibrillati on on Coumadin, hypertension, hypothyroidism, history of CVA with sequela of ataxia gait, history of colitis, Insulin-dependent diabetes mellitus, who apparently developed some chest pain while she was attempting to write some bills, she also had noticed difficulty writing in writing and misplacing wor ds while she was writing, but no focal weakness or paresthesias of the extremities at that time. No change in sense of vision, taste or smell at that time. Her CAT scan showed no acute intracranial ab normality. 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 CT head showed no acute intracranial abnormality. As I made her write her name in a sentence, there was no issue with her handwriting at this time, po ssibly she could have had a transient tremor at particular moment, but currently she is doing well ri ght now. She does have some diarrhea and an upset stomach at this point. SOCIAL HISTORY: No illicit drug use, smoking, or ETOH abuse. ALLERGIES: ALLERGIC LACTOSE, PENICILLIN, PORK PRODUCTS. REVIEW OF SYSTEMS: A 14-point review of systems negative except as in the HPI. PAST MEDICAL HISTORY: History of stroke with ____ ataxia looks chronic, insulin-dependent diabetes m ellitus, anxiety, dysuria, urinary tract infection, vertigo, paroxysmal afib, insulin-dependent diabe boone mellitus, colitis, hypothyroidism and hypertension. MEDICATIONS: Reviewed via nurses reconciliation sheet. FAMILY HISTORY: Noncontributory. SOCIAL HISTORY: No illicit drug use, smoking, or ETOH abuse. PHYSICAL EXAMINATION: VITAL SIGNS: Temperature of 98, pulse rate 62, blood pressure 136/82, respiratory rate 16, oxygen sa turation 98% on room air. GENERAL: The patient is sitting up in bed in no acute distress. HEENT: Atraumatic, normocephalic. PERRLA. Extraocular muscles intact. NECK: Supple, no JVD, no adenopathy noted. LUNGS: Clear to auscultation. No adventitious sounds. HEART: S1, S2, normal rate and rhythm. No murmurs, rubs, or gallops. ABDOMEN: Soft, nontender, nondistended. Bowel sounds are present. EXTREMITIES: No clubbing, no cyanosis. Peripheral pulses 2+ felt bilaterally. NEUROLOGIC: The patient is alert, oriented to person, place, month and year. Speech is fluent, with out any errors. Cranial nerves II-XII are intact. MOTOR: Moves all extremities equally. No pronator drift seen. SENSORY: Light touch, pinprick, proprioception, vibration intact. DTRs are 2+ throughout and 1 at t he ankles. COORDINATION: [id number]-bd-wqew intact. Gait is deferred right now. Her handwriting is actually much better. There is no tremor elicited at all on examination. LABORATORY DATA: Sodium is 141, potassium 3.6, chloride 107, carbon dioxide 29, BUN of 15, creatinin e of ____. ASSESSMENT AND PLAN: This is a 81-year-old woman with history of insulin-dependent diabetes mellitus , history of hypertension, hypothyroidism, history of paroxysmal atrial fibrillation on Coumadin, his tory of stroke in the past with cerebral ataxic chronic, history of colitis, who presented with some chest pain as well as while writing some bills she noticed to have some difficulty in writing, but no weakness of her extremities or paresthesias. I think a transient difficulty in writing was secondar y to possible mild tremor at that time, may be due to anxiety because of chest pain. But otherwise, there is no focal neurological new deficit at this time. PLAN: Recommend: 1. Continue with Coumadin 2.5 mg for underlying paroxysmal afib and for stroke prevention. 2. Continue with her hypothyroidism medications, levothyroxine 112 mcg p.o. daily. 3. She does have some underlying diarrhea. Recommend to hydrate with fluids and monitor her electro lytes and correct accordingly and continue with current present medical management at this time. Ple ase reconsult if there is any change or any new status. We will see her as outpatient. Raul Wisdom MD cc: [id number] TT: 09/29/2016 12:51:36 Confirmation # [id number] Dictation # [id number] pedro
[2016-09-29] MEDS: Insulin Reg-LOW-Coverage SC SCH ×3 (13:16→21:06)
--- NOTE | 2016-09-29 14:22 | CON ---
DATE: 09/29/2016 The patient came into the hospital yesterday with complaints of atypical chest pain. She has a history of CVA in the past, history of chronic cholecystitis, and diabetes mellitus. She has coronary artery disease. She had tubular adenoma, status post hysterectomy and colon biopsy. When questioning the patient, she no longer has the pain she claimed having when she came into the hospital. She had several episodes of that pain prior to coming into the hospital. It was not associated with any shortness of breath , cough, exercise intolerance or other respiratory symptoms. As stated, it is no longer. The patient was seen by Dr. Jones and Dr. Smith. She was slated to have a CT scan of the chest today to further evaluate. Dr. Jones and I had discussed the possibility of doing a CT angio at the same time, but it turns out that the patient refused any of the scans due to the fact that she had new onset of diarrhea and emeses. On further questioning, the patient has no complaints at this time other than the diarrhea and vomiting. She is nauseous. She does not have any respiratory complaints or chest pains at this time. She does, however, have a history of coronary artery disease. ALLERGIES: SHE HAS ALLERGIES TO PENICILLIN. HOME MEDICATIONS: She at home takes Coumadin, omeprazole and Norvasc. FAMILY HISTORY: Coronary artery disease and malignancy. No pulmonary disease. SOCIAL HISTORY: The patient never smoked, has no respiratory symptoms. No travel history. No additional complaints. REVIEW OF SYSTEMS: Has been done. Discussing problems with the patient, all of her symptoms are associated with the past history as described above. All other systems negative. PHYSICAL EXAMINATION: GENERAL: The patient is comfortable, in no acute respiratory distress. VITAL SIGNS: She is afebrile 98.6, heart rate is 84, respiratory rate 16-18, blood pressure 150/65, oxygen sat 98%. HEENT: Normocephalic, atraumatic. Eyes: PERRLA. EOMs full. Conjunctivae normal. NECK: Supple, no JVD, no lymphadenopathy, no bruit. LUNGS: Clear to percussion and auscultation. HEART: Regular rhythm, S1, S2 without murmur, gallop or rub. ABDOMEN: Soft. Bowel sounds normoactive without mass, guarding, rebound or organomegaly. Nausea has been discussed. EXTREMITIES: Reveal edema of the left lower leg which is swollen, but there is no Homans sign. The pulses are normal. The patient states that she has had edema in the past and she does not look at this as an acute finding. SKIN: No rashes NEUROLOGIC: No memory loss LABORATORY STUDIES: Show the following: platelet count 200, hemoglobin 12.8, INR 2.2. D-dimer is 0.19, sodium 141, potassium 3.6, chloride 107, BUN 15, creatinine 1.0. Troponin is normal. Chest x-ray is clear with no abnormalities noted both in the parenchyma, pleura and bony structures. EKG: Sinus rhythm, nonspecific ST-T wave changes. CLINICAL IMPRESSION: Chest pain -- now resolved. No evidence of abnormal respiratory distress, hypoxemia, deep venous thrombosis, continued chest pain or shortness of breath. This is highly unlikely for pulmonary embolism. The D- dimer is normal as well which is corroborating information. PLAN: We would monitor the patient over the next 24 hours and see if the chest pain recurs. If at that time, there is recurrence with any type of pleuritic component or hypoxemia, a CT angio would then be advisable. At this time, however, since the patient is not anxious to have it and I see no evidence for abnormal chest x-ray or clinical evidence for pulmonary embolism, I would defer right now, even as the patient has refused to have this at this time. We will follow her closely and make sure that the tongue stitcher sees her. This chest pain may have actually been an anginal clubbing with a patient with known coronary artery disease. Her tongue stitcher should further evaluate this patient to make sure that there are no other problems that have developed. We will be happy to see her again in the morning or sooner if necessary to further evaluate. Please feel free to contact me if I can be of any further help. Cameron Martins MD cc: [id number] TT: 09/29/2016 14:21:43 Confirmation # [id number] Dictation # [id number] tn MTDD
--- NOTE | 2016-09-29 15:37 | US ---
HISTORY: Leg pain and swelling. Evaluate for DVT PHYSICIAN(S): Massimo Muniz MD. TECHNIQUE: Duplex sonography and color-flow Doppler with graded compression were used to evaluate the deep venous systems of both lower extremities. FINDINGS: The visualized deep venous systems of both lower extremities are sonographically normal and compressible. Normal wave forms and augmentation are seen. There is no sonographic evidence for deep venous thrombosis in the visualized segments of both lower extremities. IMPRESSION: No sonographic evidence for deep venous thrombosis in the visualized segments of both lower extremities.
[2016-09-29 15:48] LABS: TROPONIN I < 0.01 ng/mL
[2016-09-29 18:34] VITALS: BMI 35.4
[2016-09-29] MEDS ORDERED: Pneumococcal 23-Valent Vaccine IM ONE (18:34)
[2016-09-30 07:56] VITALS: O2SAT 92
[2016-09-30 08:27] LABS: INR 1.77 (0.93-1.08)
[2016-09-30] MEDS: Magnesium Oxide 400 mg Tab UD PO SCH (09:18)
[2016-09-30] MEDS: Levothyroxine 112 MCG TAB PO SCH (09:18)
[2016-09-30] MEDS: Insulin Human NPH/Reg 70/30 Vial(3 ml) SC SCH (09:18)
[2016-09-30] MEDS ORDERED: BUDESONIDE 3 MG PO SCH (10:00)
[2016-09-30 11:20] VITALS: BP 135/69; PULSE 110; RESP 18; TEMP 97
--- NOTE | 2016-09-30 12:31 | CON ---
DATE: 09/30/2016 INDICATIONS: Chest pain. HISTORY OF PRESENT ILLNESS: This is a 81-year-old woman admitted on the after she was brought to the Emergency Room by her daughter with chest discomfort. This was a vague, relatively mild symptom. It was also associated with difficulty writing and finding words. The patient became anxious. She was brought to the Emergency Room. Subsequently, she was admitted to telemetry. There is no evidence of acute myocardial infarction by negative troponins. Her EKG showed sinus rhythm with no acute changes. Cardiac consultation was requested. Today, she is chest pain free. There is no shortness of breath at rest. There is no orthopnea, PND, syncope, presyncope, lightheadedness, dizziness, or vertigo. There are no palpitations. She does have chronic edema. There was no fever, chills, cough, sputum production, or hemoptysis. There is no abdominal pain. She does have diarrhea. PAST MEDICAL HISTORY: Notable for coronary artery disease with remote myocardial infarction and coronary intervention. She has had paroxysmal atrial fibrillation. She is on warfarin for this. There is a history of hypertension , stroke, TIA, diabetes, anxiety, gallbladder surgery, appendectomy. There is no history of rheumatic fever, congestive heart failure, or gout. MEDICATIONS: At the time of admission include Antivert, Celexa, budesonide, insulin, Imdur, warfarin, clonazepam, amlodipine, omeprazole, Synthroid. ALLERGIES: SHE NOTES ALLERGY TO LACTOSE AND PENICILLIN. SOCIAL HISTORY: She lives at home. She does not smoke. She does not drink. FAMILY HISTORY: Notable for heart disease and cancer. REVIEW OF SYSTEMS: A 10-point review of systems is otherwise unremarkable except as noted above. PHYSICAL EXAMINATION: GENERAL: She is a well-developed elderly woman, lying in bed on telemetry in no acute distress. VITAL SIGNS: Notable for sinus rhythm at 60-68 beats per minute. She is afebrile. Blood pressure 167/78, respirations 20, O2 sat 92% on room air. HEENT: Revealed no neck vein distention, thyromegaly, or carotid bruits. Mucous membranes are moist. Conjunctivae are pink. NECK: Supple. LUNGS: Lung medina are clear. HEART: Revealed normal first and second heart sounds. PMI not palpable. ABDOMEN: Soft. Bowel sounds present. No mass, organomegaly, tenderness, rebound, guarding, CVA tenderness, or palpable abdominal aortic aneurysm. EXTREMITIES: Revealed no cyanosis or clubbing. There is mild edema. NEUROLOGIC: Awake, alert, and oriented. PSYCHIATRIC: Normal as to mood and affect. SKIN: Warm and dry. No rash or cellulitis. LABORATORY AND IMAGING: A portable chest x-ray reveals no active disease. CT scan of the head reveals no acute intracranial abnormalities. No significant findings to account for the clinical presentation. No significant interval change. Extremity ultrasound reveals no evidence of DVT. CBC is unremarkable. PT, INR, PTT consistent with Coumadin therapy with last INR 2.2. D-dimer 0.19. Electrolytes, BUN, creatinine notable for potassium of 3.3, repeat 3.6. Blood sugars in the 100 and 200 range. Bilirubin 1.5. Magnesium 1.6. LFTs unremarkable. CKs and troponins are negative x several. Total cholesterol 164, LDL 102, triglycerides 71, HDL 47. Urinalysis unremarkable. IMPRESSION: The patient is a 81-year-old woman who was admitted with chest pain , as well as a rule-out stroke protocol because of difficulty writing and forming certain words. Symptoms have resolved. There is no further chest pain. Her EKG demonstrated regular sinus rhythm with leftward axis, poor R- wave progression, possible anterior septal myocardial infarction, and no significant change from prior EKG. At this time, I agree with current plans. She is on telemetry. She can be out of bed. She is getting Celexa, insulin, Imdur, Klonopin, magnesium replacement , amlodipine, Protonix, Synthroid. She is undergoing evaluations by pulmonary, neuro, infectious disease. If chest pain is recurrent, we can consider nuclear stress testing. At this point, however, I would be conservative in her cardiac care. We will monitor her INRs, check stool for occult blood. She can be out of bed with physical therapy. I will follow along with you. I will make additional recommendations based on her clinical course. Alejo Mahajan MD cc: [id number] TT: 09/30/2016 12:30:23 Confirmation # [id number] Dictation # [id number] [facility]n [facility]
--- NOTE | 2016-09-30 15:22 | PN ---
DATE: 09/30/2016 SUBJECTIVE: The patient is in bed in no acute distress. Was seen earlier this morning in room 272, bed 1. She states she has no fevers, no chest pain, no abdominal pain, diarrhea or constipation. PHYSICAL EXAMINATION: VITAL SIGNS: Temperature is 97, blood pressure is 135/70, respiratory rate 16. HEENT: Unremarkable. NECK: Supple. LUNGS: Have decreased breath sounds. HEART: Normal S1, S2. ABDOMEN: Soft, nontender. LABORATORY DATA: Reveals a white count of 6.4, hemoglobin of 12, platelets of 200. Chemistries reve als the patient has a BUN of 15, creatinine of 1.0. Urinalysis is noted. Microbiology reveals the b lood cultures are negative. ASSESSMENT AND PLAN: This is a 81-year-old female with cerebrovascular accident, diabetes, hypertens ion, coronary artery disease, anxiety, history of dermatitis and tubular adenoma, presenting with tiara st pain, which has resolved. Negative troponins, negative chest x-ray. A CAT scan of the head is ne gative and workup has been negative so far. Off of antibiotics. [facility] The patient was seen earlier this morning. The case was discussed with Dr. Jones. Buzz Smith MD cc: [id number] TT: 09/30/2016 15:21:57 Confirmation # [id number] Dictation # [id number] conner
--- NOTE | 2016-10-01 11:59 | DS ---
The patient is a 81-year-old female who was admitted to [facility] with complaints of chest pain, a sense of difficulty writing, and she was seen in the hospital by cardiology who felt that the patient could be followed as an outpatient. Her cardiac enzymes were negative x 3. He felt that the nuclear stress test would be considered should the chest pain return. She was seen with pulmonary with concerns of pulmonary embolus, and venous Dopplers of the legs were negative bilaterally. Her D-dimer was negative. The patient refused nuclear studies and a CT of the chest. She had a chest x-ray which showed no evidence of active disease. She had a CT of the head which was negative for any acute findings. She was seen by neurology who felt that there were no neurological deficits noted and that the patient could be followed as an outpatient. She would return home and be followed as an outpatient on Celexa 20 mg daily, Coumadin today 5 mg to be followed up as an outpatient. She was on colitis medicine, being followed by GI. She will resume her insulin therapy at home, be on Imdur 60 mg daily, Klonopin 0.5 mg daily. She would continue on Norvasc 5 mg daily, Protonix 40 mg daily, Synthroid 112 mcg daily. Patient refuses statin therapy.Continue coumadin. Deena Jones MD cc: [id number] TT: 10/01/2016 11:58:13 mars CHEN
== END 2016-09-30 13:36 | disposition home or self-care (01) | DRG 313 ==
LOC: ED 20:54 → ERH 22:20 → 2RSO 09-29 07:19
PROVIDERS: ADMIT Internal Medicine; ATTEND Internal Medicine
DX: R07.9 Chest pain, unspecified (principal); I69.393 Ataxia following cerebral infarction; I48.0 Paroxysmal atrial fibrillation; Z79.01 Long term (current) use of anticoagulants; E11.9 Type 2 diabetes mellitus without complications; I10 Essential (primary) hypertension; K52.9 Noninfective gastroenteritis and colitis, unspecified; I25.10 Atherosclerotic heart disease of native coronary artery without angina pectoris; E03.9 Hypothyroidism, unspecified; E73.9 Lactose intolerance, unspecified; F41.9 Anxiety disorder, unspecified; I25.2 Old myocardial infarction; Z79.4 Long term (current) use of insulin; Z86.14 Personal history of Methicillin resistant Staphylococcus aureus infection; Z90.710 Acquired absence of both cervix and uterus; Z88.0 Allergy status to penicillin

== ENCOUNTER 2016-12-13 09:10 | Emergency (ER) | payer MEDICARE, BC ==
[2016-12-13 09:15] VITALS: BMI 34.7
[2016-12-13 09:23] VITALS: RESP 18; TEMP 97.9
[2016-12-13 10:04] LABS: BASO # 0.01 K/mm3 (0.0-2.0); BASO % 0.1 % (0.0-3.0); EOS # 0.2 (0.0-0.7); GRAN # 6.21 (1.4-6.5); GRAN % 71.9 % (50.0-68.0); HEMATOCRIT 37.8 % (36.0-48.0); LYMPH # 1.7 (1.2-3.4); MEAN CELL VOLUME 90.2 fl (80.0-105.0); MEAN CORPUSCULAR HEMOGLOBIN 29.1 pg (25.0-35.0); MEAN CORPUSCULAR HGB CONC 32.3 g/dl (31.0-37.0); MEAN PLATELET VOLUME 11.2 fl (7.0-11.0); MONO # 0.5 (0.1-0.6); RED CELL DISTRIBUTION WIDTH 13.7 % (11.5-14.5); WHITE BLOOD COUNT 8.6 10^3/ul (4.5-11.0)
[2016-12-13 10:14] LABS: ALB/GLOB RATIO 1.1 (1.1-1.8); ALKALINE PHOSPHATASE 136 U/L (38-133); ALT/SGPT 21 U/L (7-56); AST/SGOT 12 U/L (15-39); BLOOD UREA NITROGEN 20 mg/dL (7-21); CALCIUM 9.6 mg/dL (8.4-10.5); CARBON DIOXIDE 26 mmol/L (21-33); CHLORIDE 102 mmol/L (98-107); GFR AFRICAN-AMERICAN > 60; INR 2.23 (0.93-1.08); POTASSIUM 3.9 mmol/L (3.6-5.0); SODIUM 138 mmol/L (132-148); TOTAL PROTEIN 6.4 g/dL (5.8-8.3)
[2016-12-13 10:23] LABS: GLUCOSE,RANDOM 307 mg/dL (70-110)
[2016-12-13] MEDS ORDERED: Sodium Chloride 0.9% 500 ML IV STA (10:33)
[2016-12-13 10:39] LABS: TROPONIN I < 0.01 ng/mL
--- NOTE | 2016-12-13 10:59 | RAD ---
PROCEDURE: Radiographs of the right tibia and fibula. HISTORY: trauma COMPARISON: None available. TECHNIQUE: Frontal and lateral views obtained. FINDINGS: BONES: No fracture or destructive lesion. JOINT SPACES: Unremarkable. OTHER FINDINGS: None. IMPRESSION: Unremarkable radiographs of the right tibia and fibula.
--- NOTE | 2016-12-13 10:59 | RAD ---
HISTORY: dizziness COMPARISON: 09/28/2016 TECHNIQUE: Chest PA and lateral FINDINGS: LUNGS: No active pulmonary disease. PLEURA: No significant pleural effusion identified. No pneumothorax apparent. CARDIOVASCULAR: Normal. OSSEOUS STRUCTURES: No significant abnormalities. VISUALIZED UPPER ABDOMEN: Normal. OTHER FINDINGS: None. IMPRESSION: No active disease.
--- NOTE | 2016-12-13 11:08 | ED PDOC ---
Arrival/HPI - General Chief Complaint: Trauma Time Seen by Provider: 12/13/16 09:34 Historian: Patient - History of Present Illness Narrative History of Present Illness (Text): 12/13/16 11:04 81 yo F w/ pmh of diabetes, vertigo, hypothyroidism and skin cancer is currently undergoing radiation treatment, presents to the emergency room after she had an episode of fall last night in her home. Patient states that she often feels dizzy described as vertigo and has had multiple falls in the past, states that she sometimes has a fall once a week, sometimes twice a week, she uses a cane to walk. States that last night she was trying to walk into her kitchen and she felt dizzy (which she describes is her typical vertigo), she then tripped over a folding table landing forward injuring her right lower leg. Patient presents today for evaluation of bruising noted to her anterior right lower leg, states that she is on Coumadin, states that she's been taking Coumadin for the past 5 years to prevent clots. Patient had she had an appointment for radiation therapy today as well as for blood work to check her Coumadin level. Otherwise: (-) h/o A fib, (-) lightheadedness, (-) head trauma, (-) headache, (-) tinnitus, (-) hearing loss, (-) chest pain, (-) dyspnea, (-) fever, (-) vomiting, (-) diarrhea, (-) syncope, (-) GI bleeding. PMD Robert Past Medical History - Provider Review Nursing Documentation Reviewed: Yes - Infectious Disease Hx of Infectious Diseases: None - Tetanus Immunization Tetanus Immunization: Unknown - Reproductive Menopause: Yes - Cardiac Hx Cardiac Disorders: Yes Hx Hypertension: Yes - Pulmonary Hx Respiratory Disorders: No - Neurological Hx Neurological Disorder: Yes HX Cerebrovascular Accident: Yes Hx Dizziness: Yes (VERTIGO) - HEENT Hx HEENT Disorder: Yes Hx Cataracts: Yes (WITH SX) - Renal Hx Renal Disorder: No - Endocrine/Metabolic Hx Endocrine Disorders: Yes Hx Diabetes Mellitus Type 2: Yes Hx Hypothyroidism: Yes - Hematological/Oncological Hx Blood Disorders: Yes Hx Shingles: Yes - Integumentary Hx Dermatological Disorder: Yes Hx Eczema: Yes Other/Comment: 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 on radiation therapy - Musculoskeletal/Rheumatological Hx Musculoskeletal Disorders: Yes Hx Falls: Yes Hx Unsteady Gait: Yes (CANE) - Gastrointestinal Hx Gastrointestinal Disorders: Yes (CHOLECYSTECTOMY,APPENDECTOMY,) Hx Gastroesophageal Reflux: Yes - Genitourinary/Gynecological Hx Genitourinary Disorders: No - Psychiatric Hx Psychophysiologic Disorder: Yes Hx Anxiety: Yes Hx Substance Use: No - Surgical History Hx Appendectomy: Yes Hx Cardiac Catheterization: Yes (3 stents) Hx Cholecystectomy: Yes Hx Coronary Stent: Yes Hx Hysterectomy: Yes Other/Comment: TONSILLECTOMY - Anesthesia Hx Anesthesia Reactions: No Hx Malignant Hyperthermia: No - Suicidal Assessment Feels Threatened In Home Enviroment: No Family/Social History - Physician Review Nursing Documentation Reviewed: Yes Family/Social History: Unknown Family HX Smoking Status: Former Smoker Hx Alcohol Use: No Hx Substance Use: No Hx Substance Use Treatment: No Allergies/Home Meds Allergies/Adverse Reactions: Allergies lactose Allergy (Severe, Verified 09/29/16 15:57) DIARRHEA Penicillins Allergy (Severe, Verified 09/29/16 15:57) Epigastric Pain Pork/Porcine Containing Products Allergy (Severe, Verified 09/29/16 15:57) VOMITING Home Medications: Home Meds Medication Instructions Recorded Confirmed Citalopram Hydrobromide [Celexa] 20 mg PO QAM 10/04/15 12/13/16 Insulin Human NPH/Reg [HumuLIN 25 units SC ACBD 10/04/15 12/13/16 70/30 (NPH/Reg)] Isosorbide Mononitrate [Imdur] 60 mg PO QAM 10/04/15 12/13/16 Meclizine HCl [Antivert] 12.5 mg PO BID PRN 10/04/15 12/13/16 Warfarin Sodium [Jantoven] 2.5 mg PO HS 10/04/15 12/13/16 Budesonide [Entocort EC] 2 cap PO DAILY 09/28/16 12/13/16 Levothyroxine [Synthroid] 112 mcg PO DAILY 09/28/16 12/13/16 Omeprazole [Omeprazole] 20 mg PO DAILY 09/28/16 12/13/16 amLODIPine [Norvasc] 5 mg PO DAILY 09/28/16 12/13/16 clonazePAM [clonAZEPAM] 0.5 mg PO BID 09/29/16 12/13/16 Review of Systems - Review of Systems Constitutional: Normal. absent: Fatigue, Weight Change, Fevers Respiratory: Normal. absent: SOB, Cough, Sputum Cardiovascular: Normal. absent: Chest Pain, Palpitations, Edema Gastrointestinal: Normal. absent: Abdominal Pain, Diarrhea, Vomiting Skin: Normal. absent: Rash, Pruritis, Skin Lesions Neurological: Normal, Dizziness. absent: Headache, Focal Weakness Physical Exam - Physical Exam Narrative Physical Exam (Text): 12/13/16 11:09 GENERAL APPEARANCE: Patient is awake, alert, oriented x 3, in no acute distress. SKIN: Warm, dry; (-) cyanosis. HEAD: (-) scalp swelling or tenderness. EYES: (-) conjunctival pallor. ENMT: TMs normal. Mucous membranes moist. NECK: (-) tenderness, (-) stiffness, (-) lymphadenopathy. Carotids: (-) bruit. CHEST AND RESPIRATORY: (-) rales, (-) rhonchi, (-) wheezes; breath sounds equal bilaterally. HEART AND CARDIOVASCULAR: (-) irregularity; (-) murmur, (-) gallop. ABDOMEN AND GI: Soft; (-) distention, (-) tenderness, (-) rebound, (-) guarding , (-) palpable masses, (-) flank tenderness. EXTREMITIES: (-) tenderness, (+) 3 small <1 cm superficial skin tears to the anterior proximal R lower leg with surrounding ecchymosis, (-) deformity; (-) edema. (+) FROM. Distal pulses: present. NEURO AND PSYCH: Mental status as above. demand planner: (-) nystagmus; Pupils equal & reactive, EOMI, (-) facial asymmetry; (-) dysarthria; tongue and uvula midline. Strength and DTRs symmetric. Gait: normal. Vital Signs Temp Pulse Resp BP Pulse Ox 12/13/16 11:56 60 18 120/67 95 12/13/16 09:10 97.9 F 63 18 115/52 L 93 L Finger Stick Blood Glucose: 276 Medical Decision Making ED Course and Treatment: 12/13/16 11:11 81 yo F w/ pmh of diabetes, vertigo, hypothyroidism and skin cancer is currently undergoing radiation treatment, presents to the emergency room after she had an episode of fall last night in her home. Plan: -- Labs -- IV fluids -- Urinalysis -- EKG -- CXR -- Reassess and disposition EKG: SB at 59 bpm, (-) acute ST changes, as read by PA. CXR : NAD, as read by PA. XR R tib-fib : no fracture, no dislocation, as read by PA. Labs and XR results reviewed. Pt's labs reveal : glucose 307, trop (-), INR 2.2. Pt states that she did not take her insulin this AM, humalin 70/30 20 units BID. Given NS bolus 500 cc IV. On re-evaluation, pt is resting in bed comfortably in no acute distress. Has no additional complaints at this time. Denies any dizziness, headache, CP, or SOB. Diagnostic results d/w the pt. Humalin 70/30 20 units ordered. Pt given lunch to eat. [facility] contacted, who states that the pt can be d/c to their care for her radiation treatment after her visit to the ER. Pt tolerated lunch in the ER. Pt notified of plan for her to be d/c to [facility], which the pt agrees to. Arrangements made for pt's transport to [facility]. - Lab Interpretations Lab Results: 12/13/16 10:00 12/13/16 10:00 Lab Results 12/13/16 12:46: POC Glucose (mg/dL) 336 H 12/13/16 11:21: Urine Color Yellow, Urine Appearance Clear, Urine pH 6.0, Ur Specific [place] 1.015, Urine Protein Negative, Urine Glucose (UA) 250 H, Urine Ketones Negative, Urine Blood Negative, Urine Nitrate Negative, Urine Bilirubin Negative, Urine Urobilinogen 0.2, Ur Leukocyte Esterase Negative 12/13/16 10:00: Sodium 138, Potassium 3.9, Chloride 102, Carbon Dioxide 26, Anion Gap 14, BUN 20, Creatinine 0.9, Est GFR ( Amer) > 60, Est GFR (Non- Af Amer) > 60, Random Glucose 307 H* D, Calcium 9.6, Total Bilirubin 1.0, AST 12 L, ALT 21, Alkaline Phosphatase 136 H, Lactate Dehydrogenase 365, Total Creatine Kinase 34 L, Troponin I < 0.01, Total Protein 6.4, Albumin 3.4, Globulin 3.0, Albumin/Globulin Ratio 1.1 12/13/16 10:00: PT 24.1 H, INR 2.23 H, APTT 41.0 H 12/13/16 10:00: WBC 8.6 D, RBC 4.19, Hgb 12.2, Hct 37.8, MCV 90.2, MCH 29.1, MCHC 32.3, RDW 13.7, Plt Count 186, MPV 11.2 H, Gran % 71.9 H, Lymph % (Auto) 20.0 L, [place] % (Auto) 6.0, Eos % (Auto) 2.0, Baso % (Auto) 0.1, Gran # 6.21, Lymph # 1.7, [place] # 0.5, Eos # 0.2, Baso # 0.01 12/13/16 09:20: POC Glucose (mg/dL) 276 H - RAD Interpretation Radiology Orders: 12/13/16 09:35 CHEST TWO VIEWS (PA/LAT) [RAD] Stat 12/13/16 09:37 TIBIA FIBULA RIGHT [RAD] Stat - Medication Orders Current Medication Orders: Discontinued Medications Sodium Chloride (Sodium Chloride 0.9%) 500 mls @ 999 mls/hr IV .Q31M STA Stop: 12/13/16 11:03 Last Admin: 12/13/16 10:49 Dose: 999 mls/hr - PA / DIGITAL STRATEGY DIRECTOR / Resident Statement / has reviewed & agrees with the documentation as recorded. Disposition/Present on Arrival - Present on Arrival Any Indicators Present on Arrival: No History of DVT/PE: No History of Uncontrolled Diabetes: No Urinary Catheter: No History of Decub. Ulcer: No History Surgical Site Infection Following: None - Disposition Have Diagnosis and Disposition been Completed?: Yes Diagnosis: Dizziness, Fall, Contusion of leg, right Disposition: HOME/ ROUTINE Disposition Time: 11:30 Patient Plan: Discharge Condition: STABLE Discharge Instructions (ExitCare): Contusion in Adults (ED), Dizziness (ED) Print Language: GREEK Additional Instructions: Thank you for letting us take care of you today. You were treated for dizziness , fall, leg contusion. The emergency medical care you received today was directed at your acute symptoms. If you were prescribed any medication, please fill it and take as directed. It may take several days for your symptoms to resolve. Return to the Emergency Department if your symptoms worsen, do not improve, or if you have any other problems. Please contact your doctor in 2 days for re-evaluation and follow up. Bring any paperwork you were given at discharge with you along with any medications you are taking to your follow up visit. Our treatment cannot replace ongoing medical care by a primary care provider (PCP) outside of the emergency department. Thank you for allowing the [facility] team to be part of your care today. Referrals: Deena Jones MD [Primary Care Provider] - Follow up with primary Forms: [employer] (Pashto)
[2016-12-13] MEDS ORDERED: Insulin Human NPH/Reg 70/30 Vial(3 ml) SC STA (11:25)
[2016-12-13 11:36] LABS: URINE BILIRUBIN NEGATIVE (NEGATIVE); URINE BLOOD NEGATIVE (NEGATIVE); URINE GLUCOSE (UA) 250 mg/dL (NEGATIVE); URINE KETONE NEGATIVE (NEGATIVE); URINE LEUKOCYTE ESTERASE NEGATIVE Leu/uL (NEGATIVE); URINE PROTEIN NEGATIVE mg/dL (<30 mg/dL); URINE UROBILINOGEN 0.2 E.U./dL (<1 E.U./dL)
[2016-12-13 11:37] LABS: URINE APPEARANCE CLEAR (CLEAR); URINE COLOR YELLOW (YELLOW)
[2016-12-13 11:57] VITALS: BP 120/67; PULSE 60; O2SAT 95
--- NOTE | 2016-12-13 19:55 | CARD ---
APPROVED REPORT EKG Measurement Heart [id number] [place] [id number] <Conclusion> Sinus bradycardia with sinus arrhythmia Left axis deviation Abnormal ECG
== END 2016-12-13 13:02 | disposition home or self-care (01) ==
LOC: ED 09:10
DX: S80.11XA Contusion of right lower leg, initial encounter (principal); W01.0XXA Fall on same level from slipping, tripping and stumbling without subsequent striking against object, initial encounter; Z91.81 History of falling; Y93.01 Activity, walking, marching and hiking; Y92.000 Kitchen of unspecified non-institutional (private) residence as the place of occurrence of the external cause; R42 Dizziness and giddiness; I10 Essential (primary) hypertension; E11.9 Type 2 diabetes mellitus without complications; Z79.01 Long term (current) use of anticoagulants; Z87.891 Personal history of nicotine dependence
CPT/HCPCS: 71020; 73590; 80053; 81003; 82550; 82948; 83615; 84484; 85025; 85610; 85730; 87086; 87181; 93005; 96372; 99285; J7040

== ENCOUNTER 2017-02-18 18:08 | Emergency (ER) | payer MEDICARE, BC ==
[2017-02-18 18:09] VITALS: BMI 34.7
== END 2017-02-18 18:47 | disposition left against medical advice (07) ==
LOC: ED 18:08
DX: Z02.89 Encounter for other administrative examinations (principal); R42 Dizziness and giddiness

== ENCOUNTER 2017-02-19 09:35 | Emergency (ER) | payer MEDICARE, BC ==
[2017-02-19 09:35] VITALS: BMI 34.7
[2017-02-19 09:46] VITALS: RESP 18; TEMP 97.4
--- NOTE | 2017-02-19 10:52 | ED PDOC ---
Arrival/HPI - General Chief Complaint: Medical Clearance Time Seen by Provider: 02/19/17 10:25 - History of Present Illness Narrative History of Present Illness (Text): 81F presents to ED at request of [facility]. she says she developed a nose bleed from right nare saturday which stopped on it's own. ecg was done at [facility] for unclear reason and she was told it was not normal and that she should come to the ED. she came here yesterday but says it was too crowded so she came back today. she denies any chest pain or sob. she reports recurrent vertigo but this has been ongoing for years and she says it is "quite frequent. " she has experienced no recurrent nose bleed since saturday. she is alos requesting to have her coumdin level checked. she is unsure why she is on coumadin. Past Medical History - Infectious Disease Hx of Infectious Diseases: None - Tetanus Immunization Tetanus Immunization: Unknown - Cardiac Hx Cardiac Disorders: Yes Hx Hypertension: Yes - Pulmonary Hx Respiratory Disorders: No - Neurological Hx Neurological Disorder: Yes HX Cerebrovascular Accident: Yes Hx Dizziness: Yes (VERTIGO) - HEENT Hx HEENT Disorder: Yes Hx Cataracts: Yes (WITH SX) - Renal Hx Renal Disorder: No - Endocrine/Metabolic Hx Endocrine Disorders: Yes Hx Diabetes Mellitus Type 2: Yes Hx Hypothyroidism: Yes - Hematological/Oncological Hx Blood Disorders: Yes Hx Shingles: Yes - Integumentary Hx Dermatological Disorder: Yes Hx Eczema: Yes Other/Comment: 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 on radiation therapy - Musculoskeletal/Rheumatological Hx Musculoskeletal Disorders: Yes Hx Falls: Yes Hx Unsteady Gait: Yes (CANE) - Gastrointestinal Hx Gastrointestinal Disorders: Yes (CHOLECYSTECTOMY,APPENDECTOMY,) Hx Gastroesophageal Reflux: Yes - Genitourinary/Gynecological Hx Genitourinary Disorders: No - Psychiatric Hx Psychophysiologic Disorder: Yes Hx Anxiety: Yes Hx Substance Use: No - Surgical History Hx Appendectomy: Yes Hx Cardiac Catheterization: Yes (3 stents) Hx Cholecystectomy: Yes Hx Coronary Stent: Yes Hx Hysterectomy: Yes Other/Comment: TONSILLECTOMY - Anesthesia Hx Anesthesia: Yes Hx Anesthesia Reactions: No Hx Malignant Hyperthermia: No - Suicidal Assessment Feels Threatened In Home Enviroment: No Family/Social History Family/Social History: Other (nc) Smoking Status: Former Smoker Hx Alcohol Use: No Hx Substance Use: No Hx Substance Use Treatment: No Allergies/Home Meds Allergies/Adverse Reactions: Allergies lactose Allergy (Severe, Verified 02/19/17 09:37) DIARRHEA Penicillins Allergy (Severe, Verified 02/19/17 09:37) Epigastric Pain Pork/Porcine Containing Products Allergy (Severe, Verified 02/19/17 09:37) VOMITING Home Medications: Home Meds Medication Instructions Recorded Confirmed Citalopram Hydrobromide [Celexa] 20 mg PO QAM 10/04/15 02/19/17 Insulin Human NPH/Reg [HumuLIN 25 units SC ACBD 10/04/15 02/19/17 70/30 (NPH/Reg)] Isosorbide Mononitrate [Imdur] 60 mg PO QAM 10/04/15 02/19/17 Meclizine HCl [Antivert] 12.5 mg PO BID PRN 10/04/15 02/19/17 Warfarin Sodium [Jantoven] 2.5 mg PO HS 10/04/15 02/19/17 Budesonide [Entocort EC] 2 cap PO DAILY 09/28/16 02/19/17 Levothyroxine [Synthroid] 112 mcg PO DAILY 09/28/16 02/19/17 amLODIPine [Norvasc] 5 mg PO DAILY 09/28/16 02/19/17 clonazePAM [clonAZEPAM] 0.5 mg PO BID 09/29/16 02/19/17 Ranitidine HCl [Acid Film And Video Graphics Designer] 1 tab PO DAILY 02/19/17 02/19/17 Review of Systems - Review of Systems Constitutional: absent: Fevers Eyes: absent: Vision Changes ENT: absent: Hearing Changes Respiratory: absent: SOB, Cough Cardiovascular: absent: Chest Pain, Syncope Gastrointestinal: absent: Nausea, Vomiting Musculoskeletal: Other (recurrent swelling in left leg, she is unsure of time course) Neurological: Dizziness (chronic vertigo). absent: Headache Physical Exam Vital Signs Reviewed: Yes Vital Signs Temp Pulse Resp BP Pulse Ox 02/19/17 12:44 59 L 18 145/64 96 02/19/17 11:00 58 L 18 148/69 96 02/19/17 09:44 97.4 F L 59 L 18 153/73 H 95 Appearance: Positive for: Well-Appearing, Non-Toxic, Comfortable Pain Distress: None Mental Status: Positive for: Alert and Oriented X 3 - Systems Exam Head: Present: Atraumatic Pupils: Present: PERRL Extroacular Muscles: Present: EOMI Mouth: Present: Moist Mucous Membranes Neck: Present: Normal Range of Motion Respiratory/Chest: Present: Clear to Auscultation. No: Respiratory Distress, Accessory Muscle Use Cardiovascular: Present: Bradycardic Abdomen: No: Tenderness, Distention Upper Extremity: Present: NORMAL PULSES Lower Extremity: Present: Edema (1+ LLE) Neurological: Present: GCS=15, CN II-XII Intact, Motor Func Grossly Intact, Normal Sensory Function Skin: Present: Warm, Dry Psychiatric: Present: Alert, Oriented x 3 Medical Decision Making ED Course and Treatment: ecg- sinus ga rate 55, LAD, no acute ischemia which appears unchanged from ecg done at [facility] which appears unchanged from prior 12/13/16. 02/19/17 12:53 Case discussed with bulk mail technician, Duplex is negative for DVT. Disc w Dr Jones- rec resume coumadin tomorrow and f/u next week for INR check - Lab Interpretations Lab Results: 02/19/17 11:05 02/19/17 11:05 Lab Results 02/19/17 11:05: Sodium 138, Potassium 3.5 L, Chloride 105, Carbon Dioxide 27, Anion Gap 10, BUN 24 H, Creatinine 1.0, Est GFR ( Amer) > 60, Est GFR ( Non-Af Amer) 53, Random Glucose 178 H, Calcium 9.9, Total Bilirubin 1.4 H, AST 12 L, ALT 18, Alkaline Phosphatase 117, Total Protein 6.2, Albumin 3.3, Globulin 3.0, Albumin/Globulin Ratio 1.1 02/19/17 11:05: PT 18.1 H, INR 1.63 H 02/19/17 11:05: WBC 6.1 D, RBC 4.20, Hgb 12.4, Hct 38.6, MCV 91.9, MCH 29.5, MCHC 32.1, RDW 13.6, Plt Count 177, MPV 11.6 H, Gran % 60.9, Lymph % (Auto) 25.1 , [place] % (Auto) 10.5 H, Eos % (Auto) 3.0, Baso % (Auto) 0.5, Gran # 3.71, Lymph # 1.5, [place] # 0.6, Eos # 0.2, Baso # 0.03 - RAD Interpretation Radiology Orders: 02/19/17 10:48 DUPLEX LOWER EXTRM VEIN LEFT [US] Stat - Scribe Statement The provider has reviewed the documentation as recorded by the Scribe Kenna Parekh Provider Scribe Attestation: All medical record entries made by the Scribe were at my direction and personally dictated by me. I have reviewed the chart and agree that the record accurately reflects my personal performance of the history, physical exam, medical decision making, and the department course for this patient. I have also personally directed, reviewed, and agree with the discharge instructions and disposition. Disposition/Present on Arrival - Present on Arrival Any Indicators Present on Arrival: No History of DVT/PE: No History of Uncontrolled Diabetes: No Urinary Catheter: No History of Decub. Ulcer: No History Surgical Site Infection Following: None - Disposition Have Diagnosis and Disposition been Completed?: Yes Diagnosis: Anterior epistaxis, Subtherapeutic anticoagulation, Left leg swelling Disposition: HOME/ ROUTINE Disposition Time: 12:52 Condition: GOOD Discharge Instructions (ExitCare): Nosebleed (ED) Additional Instructions: Please follow up with Dr Jones. Resume taking your coumadin tomorrow. Return to the ER for any worsening symptoms or for any other concerns. Referrals: Deena Jones MD [Staff Provider] - Follow up with primary Forms: [email or web address] (British)
[2017-02-19 11:14] VITALS: O2SAT 96
[2017-02-19 11:26] LABS: BASO # 0.03 K/mm3 (0.0-2.0); BASO % 0.5 % (0.0-3.0); EOS # 0.2 (0.0-0.7); GRAN # 3.71 (1.4-6.5); GRAN % 60.9 % (50.0-68.0); HEMATOCRIT 38.6 % (36.0-48.0); LYMPH # 1.5 (1.2-3.4); LYMPH % 25.1 % (22.0-35.0); MEAN CELL VOLUME 91.9 fl (80.0-105.0); MEAN CORPUSCULAR HEMOGLOBIN 29.5 pg (25.0-35.0); MEAN CORPUSCULAR HGB CONC 32.1 g/dl (31.0-37.0); MEAN PLATELET VOLUME 11.6 fl (7.0-11.0); MONO # 0.6 (0.1-0.6); MONO % 10.5 % (1.0-6.0); RED CELL DISTRIBUTION WIDTH 13.6 % (11.5-14.5); WHITE BLOOD COUNT 6.1 10^3/ul (4.5-11.0)
[2017-02-19 11:30] LABS: ALB/GLOB RATIO 1.1 (1.1-1.8); ALKALINE PHOSPHATASE 117 U/L (38-126); ALT/SGPT 18 U/L (7-56); AST/SGOT 12 U/L (14-36); BILIRUBIN,TOTAL 1.4 mg/dL (0.2-1.3); BLOOD UREA NITROGEN 24 mg/dL (7-21); CALCIUM 9.9 mg/dL (8.4-10.5); CARBON DIOXIDE 27 mmol/L (21-33); CHLORIDE 105 mmol/L (98-107); GFR AFRICAN-AMERICAN > 60; GLUCOSE,RANDOM 178 mg/dL (70-110); POTASSIUM 3.5 mmol/L (3.6-5.0); SODIUM 138 mmol/L (132-148); TOTAL PROTEIN 6.2 g/dL (5.8-8.3)
[2017-02-19 11:41] LABS: INR 1.63 (0.93-1.08)
[2017-02-19 12:44] VITALS: BP 145/64; PULSE 59
--- NOTE | 2017-02-19 16:05 | US ---
PROCEDURE: Left lower extremity venous US HISTORY: Leg pain and swelling. Evaluate for DVT. PHYSICIAN(S): Massimo Muniz MD. TECHNIQUE: Duplex sonography and color-flow Doppler with graded compression were used to evaluate the deep venous system of the left lower extremity. FINDINGS: The visualized deep venous system of the left lower extremity is sonographically normal and compressible. Normal wave forms and augmentation are seen. There is no sonographic evidence for deep venous thrombosis in the visualized segments of the left lower extremity. IMPRESSION: 1. No sonographic evidence for deep venous thrombosis in the visualized segments of the left lower extremity.
--- NOTE | 2017-02-19 16:35 | CARD ---
APPROVED REPORT EKG Measurement Heart [id number] <Conclusion> Sinus bradycardia Left axis deviation Abnormal ECG
== END 2017-02-19 13:19 | disposition home or self-care (01) ==
LOC: ED 09:35
DX: R04.0 Epistaxis (principal); R79.1 Abnormal coagulation profile; M79.89 Other specified soft tissue disorders; E03.9 Hypothyroidism, unspecified; E11.9 Type 2 diabetes mellitus without complications; I10 Essential (primary) hypertension; Z87.891 Personal history of nicotine dependence

== ENCOUNTER 2017-04-12 14:31 | Inpatient (IN) | payer MEDICARE, BC ==
[2017-04-12 14:31] VITALS: BMI 34.7
[2017-04-12] MEDS ORDERED: Sodium Chloride 0.9% 1,000 ML IV STA (15:53)
[2017-04-12] MEDS ORDERED: Iohexol 350 MG/100 ML VIAL ONE (17:06)
[2017-04-12 17:15] LABS: BASO # 0.01 K/mm3 (0.0-2.0); BASO % 0.2 % (0.0-3.0); EOS % 0.6 % (1.5-5.0); GRAN # 3.96 (1.4-6.5); GRAN % 73.5 % (50.0-68.0); HEMATOCRIT 41.6 % (36.0-48.0); LYMPH # 0.7 (1.2-3.4); LYMPH % 13.2 % (22.0-35.0); MEAN CELL VOLUME 92.7 fl (80.0-105.0); MEAN CORPUSCULAR HEMOGLOBIN 30.3 pg (25.0-35.0); MEAN CORPUSCULAR HGB CONC 32.7 g/dl (31.0-37.0); MEAN PLATELET VOLUME 10.9 fl (7.0-11.0); MONO # 0.7 (0.1-0.6); MONO % 12.5 % (1.0-6.0); RED CELL DISTRIBUTION WIDTH 13.5 % (11.5-14.5); WHITE BLOOD COUNT 5.4 10^3/ul (4.5-11.0)
[2017-04-12 17:23] LABS: VENOUS BLOOD GAS BASE EXCESS 0.7 mmol/L (0.0-2.0); VENOUS BLOOD PH 7.32 (7.32-7.43)
[2017-04-12 17:34] LABS: ALKALINE PHOSPHATASE 121 U/L (38-126); ALT/SGPT 21 U/L (7-56); AMYLASE 35 U/L (35-125); AST/SGOT 16 U/L (14-36); BILIRUBIN,TOTAL 1.5 mg/dL (0.2-1.3); BLOOD UREA NITROGEN 12 mg/dL (7-21); CALCIUM 9.6 mg/dL (8.4-10.5); CARBON DIOXIDE 22 mmol/L (21-33); CHLORIDE 104 mmol/L (98-107); GFR AFRICAN-AMERICAN > 60; GLUCOSE,RANDOM 189 mg/dL (70-110); LIPASE 37 U/L (23-300); POTASSIUM 3.5 mmol/L (3.6-5.0); SODIUM 135 mmol/L (132-148); TOTAL PROTEIN 6.6 g/dL (5.8-8.3)
[2017-04-12 17:45] LABS: TROPONIN I 0.02 ng/mL
[2017-04-12] MEDS ORDERED: Potassium Chloride 20 mEq/15 ml LIQ UD PO STA (17:55)
[2017-04-12 18:12] LABS: INR 1.81 (0.93-1.08); PARTIAL THROMBOPLASTIN TIME 26.3 Seconds (25.1-36.5)
--- NOTE | 2017-04-12 18:52 | ED PDOC ---
Arrival/HPI - General Chief Complaint: Trauma Time Seen by Provider: 04/12/17 15:45 Historian: Patient - History of Present Illness Narrative History of Present Illness (Text): 04/12/17 20:51 81yo female with PMHx of hypertension, diabetes, hypothyroid, CVA, CAD, present with complaint of abdominal pain, associated with nausea, vomiting and diarrhea since yesterday. Notes that her grand daughter have similar symptoms. States she tripped, fell yesterday and hit her left sided forehead on the floor. +Decrease appetite. She denies hematmesis, fever, chills, melena, urinary symptoms, chest pain, SOB, any other complaint. Past Medical History - Provider Review Nursing Documentation Reviewed: Yes - Infectious Disease Hx of Infectious Diseases: None - Tetanus Immunization Tetanus Immunization: Unknown - Cardiac Hx Cardiac Disorders: Yes Hx Hypertension: Yes - Pulmonary Hx Respiratory Disorders: No - Neurological Hx Neurological Disorder: Yes HX Cerebrovascular Accident: Yes Hx Dizziness: Yes (VERTIGO) - HEENT Hx HEENT Disorder: Yes Hx Cataracts: Yes (WITH SX) - Renal Hx Renal Disorder: No - Endocrine/Metabolic Hx Endocrine Disorders: Yes Hx Diabetes Mellitus Type 2: Yes Hx Hypothyroidism: Yes - Hematological/Oncological Hx Blood Disorders: Yes Hx Shingles: Yes - Integumentary Hx Dermatological Disorder: Yes Hx Eczema: Yes Other/Comment: 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 on radiation therapy - Musculoskeletal/Rheumatological Hx Musculoskeletal Disorders: Yes Hx Falls: Yes Hx Unsteady Gait: Yes (CANE) - Gastrointestinal Hx Gastrointestinal Disorders: Yes (CHOLECYSTECTOMY,APPENDECTOMY,) Hx Gastroesophageal Reflux: Yes - Genitourinary/Gynecological Hx Genitourinary Disorders: No - Psychiatric Hx Psychophysiologic Disorder: Yes Hx Anxiety: Yes Hx Substance Use: No - Surgical History Hx Appendectomy: Yes Hx Cardiac Catheterization: Yes (3 stents) Hx Cholecystectomy: Yes Hx Coronary Stent: Yes Hx Hysterectomy: Yes Other/Comment: TONSILLECTOMY - Anesthesia Hx Anesthesia: Yes Hx Anesthesia Reactions: No Hx Malignant Hyperthermia: No - Suicidal Assessment Feels Threatened In Home Enviroment: No Family/Social History - Physician Review Nursing Documentation Reviewed: Yes Family/Social History: Unknown Family HX Smoking Status: Former Smoker Hx Alcohol Use: No Hx Substance Use: No Hx Substance Use Treatment: No Allergies/Home Meds Allergies/Adverse Reactions: Allergies lactose Allergy (Severe, Verified 02/19/17 09:37) DIARRHEA Penicillins Allergy (Severe, Verified 02/19/17 09:37) Epigastric Pain Pork/Porcine Containing Products Allergy (Severe, Verified 02/19/17 09:37) VOMITING Home Medications: Home Meds Medication Instructions Recorded Confirmed Citalopram Hydrobromide [Celexa] 20 mg PO QAM 10/04/15 04/12/17 Insulin Human NPH/Reg [HumuLIN 25 units SC ACBD 10/04/15 04/12/17 70/30 (NPH/Reg)] Isosorbide Mononitrate [Imdur] 60 mg PO QAM 10/04/15 04/12/17 Meclizine HCl [Antivert] 12.5 mg PO BID PRN 10/04/15 04/12/17 Warfarin Sodium [Jantoven] 2.5 mg PO HS 10/04/15 04/12/17 Budesonide [Entocort EC] 2 cap PO DAILY 09/28/16 04/12/17 Levothyroxine [Synthroid] 112 mcg PO DAILY 09/28/16 04/12/17 amLODIPine [Norvasc] 5 mg PO DAILY 09/28/16 04/12/17 clonazePAM [clonAZEPAM] 0.5 mg PO BID 09/29/16 04/12/17 Ranitidine HCl [Acid Tipping Machine Operator Automatic] 1 tab PO DAILY 02/19/17 04/12/17 Review of Systems - Physician Review All systems were reviewed & negative as marked: Yes - Review of Systems Constitutional: Normal Eyes: Normal ENT: Normal Respiratory: Normal Cardiovascular: Normal Gastrointestinal: Abdominal Pain, Diarrhea, Nausea, Vomiting. absent: Constipation, Hematochezia, Hematemesis Genitourinary Female: Normal Musculoskeletal: Normal Skin: Normal Neurological: Normal Endocrine: Normal Hemo/Lymphatic: Normal Psychiatric: Normal Physical Exam Vital Signs Reviewed: Yes Vital Signs Temp Pulse Resp BP Pulse Ox 04/12/17 22:00 98.7 F 67 17 148/76 100 04/12/17 19:00 98.6 F 68 18 159/69 H 95 04/12/17 14:50 98.3 F 84 18 120/64 92 L Temperature: Afebrile Blood Pressure: Normal Pulse: Regular Respiratory Rate: Normal Appearance: Positive for: Well-Appearing, Non-Toxic, Comfortable, Other ( Morbidly obese) Pain Distress: None Mental Status: Positive for: Alert and Oriented X 3 - Systems Exam Head: Present: Atraumatic, Normocephalic Pupils: Present: PERRL Extroacular Muscles: Present: EOMI Conjunctiva: Present: Normal Mouth: Present: Moist Mucous Membranes Neck: Present: Normal Range of Motion Respiratory/Chest: Present: Clear to Auscultation, Good Air Exchange. No: Respiratory Distress, Accessory Muscle Use Cardiovascular: Present: Regular Rate and Rhythm, Normal S1, S2. No: Murmurs Abdomen: Present: Tenderness (Diffuse tenderness eith deep palpation), Normal Bowel Sounds, Other (Soft). No: Distention, Peritoneal Signs, Rebound, Guarding , McBurney's Point Tender, Rovsing's Sign Present Back: Present: Normal Inspection Upper Extremity: Present: Normal Inspection. No: Cyanosis, Edema Lower Extremity: Present: Normal Inspection. No: Edema Neurological: Present: GCS=15, CN II-XII Intact, Speech Normal Skin: Present: Warm, Dry, Normal Color. No: Rashes Psychiatric: Present: Alert, Oriented x 3, Normal Insight, Normal Concentration Medical Decision Making ED Course and Treatment: 04/13/17 01:06 PT was hemodynamically stable in ED. She however continue to complain of nausea s/p medication. Her lab was unremarkable. EKG NSR @81bpm Abdominal CT IMPRESSION: 1. No definitive acute post traumatic abnormality on this noncontrast study. 2. There is cardiomegaly. A small pericardial effusion is identified. 3. Hepatomegaly. 4. Borderline splenomegaly. 5. Hypodense probable right renal cysts are identified at the inferior pole, the largest measuring 1.5 cm. There are a few small hypodense probable left renal cysts. These findings are stable. 6. Diverticulosis. 7. Incidental/non-acute findings are described above. IMPRESSION: 1. There is soft tissue swelling/hematoma of the right frontal scalp. 2. No acute intracranial hemorrhage or acute territorial type infarct. 3. A small chronic lacunar infarct is again visualized within the left thalamus. 4. There are scattered foci of hypodensity within the cerebral white matter, likely representing small vessel ischemic disease in a patient this age. 5. Stable atrophy. 6. Incidental/non-acute findings are described above Case was DW Dr. Jones and pt was placed on OBS. He requested Dr. Beck consult. Case was DW Dr. Aguilar. who is covering for Dr. Beck and she is aware Plan was DW the pt and she agreed. - Lab Interpretations Lab Results: 04/12/17 17:06 04/12/17 17:06 Lab Results 04/12/17 17:14: PT 20.1 H, INR 1.81 H, APTT 26.3 04/12/17 17:10: pO2 63 H, VBG pH 7.32, VBG pCO2 54.0, VBG HCO3 27.8, VBG Total CO2 29.5 H, VBG O2 Sat (Calc) 94.3 H, VBG Base Excess 0.7, VBG Potassium 3.8, Glucose 191 H, Lactate 1.8, FiO2 21.0, Sodium 136.0, Chloride 101.0, Venous Blood Potassium 3.8 04/12/17 17:06: Sodium 135, Potassium 3.5 L, Chloride 104, Carbon Dioxide 22, Anion Gap 13, BUN 12, Creatinine 0.8, Est GFR ( Amer) > 60, Est GFR (Non- Af Amer) > 60, Random Glucose 189 H, Calcium 9.6, Total Bilirubin 1.5 H, AST 16 , ALT 21, Alkaline Phosphatase 121, Lactate Dehydrogenase 448, Total Creatine Kinase 100, Troponin I 0.02 D, Total Protein 6.6, Albumin 3.3, Globulin 3.3, Albumin/Globulin Ratio 1.0 L, Amylase 35, Lipase 37 04/12/17 17:06: WBC 5.4, RBC 4.49, Hgb 13.6, Hct 41.6, MCV 92.7, MCH 30.3, MCHC 32.7, RDW 13.5, Plt Count 132, MPV 10.9, Gran % 73.5 H, Lymph % (Auto) 13.2 L, Simpson % (Auto) 12.5 H, Eos % (Auto) 0.6 L, Baso % (Auto) 0.2, Gran # 3.96, Lymph # 0.7 L, Simpson # 0.7 H, Eos # 0.0, Baso # 0.01 - RAD Interpretation Radiology Orders: 04/12/17 15:56 HEAD W/O CONTRAST [CT] Stat MAXILLOFACIAL W/O CONTRAST [CT] Stat 04/12/17 15:57 ABD & PELVIS W/O PO OR IV CONT [CT] Stat - Medication Orders Current Medication Orders: Sodium Chloride (Sodium Chloride 0.9%) 1,000 mls @ 100 mls/hr IV .Q10H STA Stop: 04/13/17 01:52 Last Admin: 04/12/17 17:38 Dose: 100 mls/hr eMAR Start Stop Document 04/12/17 17:38 OCS (Rec: 04/12/17 17:39 OCS [id number]) Intravenous Solution Start Date 04/12/17 Start Time 17:39 Discontinued Medications Famotidine (Pepcid) 20 mg IVP STAT STA Stop: 04/12/17 15:54 Last Admin: 04/12/17 17:38 Dose: 20 mg IVP Administration Document 04/12/17 17:38 OCS (Rec: 04/12/17 17:38 OCS [id number]) Charges for Administration # of IVP Administrations 1 Ondansetron HCl (Zofran Inj) 4 mg IVP STAT STA Stop: 04/12/17 15:54 Last Admin: 04/12/17 17:39 Dose: 4 mg IVP Administration Document 04/12/17 17:39 OCS (Rec: 04/12/17 17:39 OCS [id number]) Charges for Administration # of IVP Administrations 1 Ondansetron HCl (Zofran Inj) 4 mg IVP STAT STA Stop: 04/12/17 20:51 Last Admin: 04/12/17 22:50 Dose: 4 mg IVP Administration Document 04/12/17 22:50 AB (Rec: 04/12/17 23:41 AB [id number]) Charges for Administration # of IVP Administrations 1 Potassium Chloride (Potassium Chloride Oral Soln) 20 meq PO STAT STA Stop: 04/12/17 17:56 Last Admin: 04/12/17 18:32 Dose: 20 meq Disposition/Present on Arrival - Present on Arrival Any Indicators Present on Arrival: No History of DVT/PE: No History of Uncontrolled Diabetes: No Urinary Catheter: No History of Decub. Ulcer: No History Surgical Site Infection Following: None - Disposition Have Diagnosis and Disposition been Completed?: Yes Diagnosis: Abdominal pain Disposition: HOSPITALIZED Disposition Time: 21:30 Patient Problems: Current Active Problems Problem Status Onset Abdominal pain Acute Condition: FAIR
--- NOTE | 2017-04-12 20:37 | CT ---
EXAM: CT Head Without Intravenous Contrast EXAM DATE/TIME: 04/12/2017 3:56 PM CLINICAL HISTORY: The patient age is 81 years old and is female; Injury or trauma; Fall; Initial encounter; Abrasion; Forehead; Additional info: S/P fall Facility exam id and description: Ct heads head w/o contrast TECHNIQUE: Axial computed tomography images of the head/brain without intravenous contrast. All CT scans at this facility use one or more dose reduction techniques, viz.: automated exposure control; ma/kV adjustment per patient size (including targeted exams where dose is matched to indication; i.e. head); or iterative reconstruction technique. Coronal and sagittal reformatted images were created and reviewed. COMPARISON: CT - HEAD W/O CONTRAST 2016-09-28 21:31 FINDINGS: Brain: A small chronic lacunar infarct is again visualized within the left thalamus. There are scattered foci of hypodensity within the cerebral white matter, likely representing small vessel ischemic disease in a patient this age. The acuity of the white matter disease is indeterminate. The white-mederos differentiation is preserved demonstrating no acute territorial type infarct. There is stable prominence of the ventricles and sulci, compatible with atrophy. No acute intracranial hemorrhage is seen. Midline shift: There is no midline shift. Ventricles: See above. Bones/joints: The calvarium demonstrates no evidence for a depressed fracture. Soft tissues: There is soft tissue swelling/hematoma of the right frontal scalp. Vasculature: There is atherosclerotic calcification of the cavernous internal carotid arteries and distal vertebral arteries. Sinuses: There is mild mucosal thickening of the bilateral frontal sinuses and a few anterior ethmoid air cells. Mastoid air cells: No mastoid effusion. IMPRESSION: 1. There is soft tissue swelling/hematoma of the right frontal scalp. 2. No acute intracranial hemorrhage or acute territorial type infarct. 3. A small chronic lacunar infarct is again visualized within the left thalamus. 4. There are scattered foci of hypodensity within the cerebral white matter, likely representing small vessel ischemic disease in a patient this age. 5. Stable atrophy. 6. Incidental/non-acute findings are described above.
--- NOTE | 2017-04-12 20:53 | CT ---
EXAM: CT Abdomen and Pelvis Without Intravenous Contrast EXAM DATE/TIME: 04/12/2017 3:57 PM CLINICAL HISTORY: The patient age is 81 years old and is female; Injury or trauma; Fall; Initial encounter; Abrasion; Additional info: Abdominal pain Facility exam id and description: Ct abdpelscon abd pelvis w/o po or iv cont TECHNIQUE: Axial computed tomography images of the abdomen and pelvis without intravenous contrast. All CT scans at this facility use one or more dose reduction techniques, viz.: automated exposure control; ma/kV adjustment per patient size (including targeted exams where dose is matched to indication; i.e. head); or iterative reconstruction technique. Coronal and sagittal reformatted images were created and reviewed. COMPARISON: CT - ABD PELVIS W/O PO OR IV CONT 2017-03-25 08:54 FINDINGS: Limitations: There is a limited evaluation of organ/aortic injury due to the absence of intravenous contrast administration. Lower thorax: There is cardiomegaly. A small pericardial effusion is identified. Atelectatic changes are identified at the bilateral lung bases. ABDOMEN: Liver: The liver measures 20.9 cm in the craniocaudad dimension, consistent with hepatomegaly. No discrete mass. Gallbladder and bile ducts: Surgical clips are identified within the gallbladder fossa, compatible with cholecystectomy. Pancreas: Normal contour. No ductal dilation. Spleen: The spleen measures 12.3 cm in length, borderline for splenomegaly. Adrenals: No mass. Kidneys and ureters: Hypodense probable right renal cysts are identified at the inferior pole, the largest measuring 1.5 cm. There are a few small hypodense probable left renal cysts. These findings are stable. No hydronephrosis bilaterally. Stomach and bowel: Colonic diverticula are identified, without acute inflammatory stranding of the adjacent mesentery. Appendix: Not visualized. PELVIS: Bladder: No stones. Reproductive: The uterus is absent. ABDOMEN and PELVIS: Intraperitoneal space: No free air. Bones/joints: Hypertrophic degenerative changes are noted within the spine. Soft tissues: There is minimal herniation of fat into the umbilicus. Vasculature: There is atherosclerotic calcification of the abdominal aorta. Additional atherosclerotic changes are visualized. Lymph nodes: There is no significant retroperitoneal or intrapelvic lymphadenopathy. IMPRESSION: 1. No definitive acute post traumatic abnormality on this noncontrast study. 2. There is cardiomegaly. A small pericardial effusion is identified. 3. Hepatomegaly. 4. Borderline splenomegaly. 5. Hypodense probable right renal cysts are identified at the inferior pole, the largest measuring 1.5 cm. There are a few small hypodense probable left renal cysts. These findings are stable. 6. Diverticulosis. 7. Incidental/non-acute findings are described above.
--- NOTE | 2017-04-12 21:14 | CT ---
EXAM: CT Maxillofacial Without Intravenous Contrast EXAM DATE/TIME: 04/12/2017 3:56 PM CLINICAL HISTORY: The patient age is 81 years old and is female; Injury or trauma; Fall; Initial encounter; Abrasion; Forehead; Additional info: Facial injury Facility exam id and description: Ct faces maxillofacial w/o contrast TECHNIQUE: Axial computed tomography images of the face without intravenous contrast. All CT scans at this facility use one or more dose reduction techniques, viz.: automated exposure control; ma/kV adjustment per patient size (including targeted exams where dose is matched to indication; i.e. head); or iterative reconstruction technique. COMPARISON: No relevant prior studies available. FINDINGS: Bones/joints: No acute facial bone fracture. Soft tissues: There is soft tissue swelling/hematoma of the right frontal scalp and supraorbital region. Orbits: Probable bilateral intraocular lens implants are identified. No acute intraorbital abnormality. Sinuses: There is mucosal thickening of the bilateral frontal sinuses and a few anterior ethmoid air cells. Mucous retention cysts or polyps are identified within the bilateral maxillary sinuses, with mucosal thickening of the left maxillary sinus. There is a defect of the medial wall the left maxillary sinus, which is likely postoperative. Dental: The patient is nearly edentulous. Nasopharynx: There is nasal septal deviation to the left. IMPRESSION: 1. No acute facial bone fracture. 2. Paranasal sinus disease is noted above. 3. There is soft tissue swelling/hematoma of the right frontal scalp and supraorbital region. 4. Incidental/non-acute findings are described above.
[2017-04-12 22:02] LABS: URINE APPEARANCE CLEAR (CLEAR); URINE BILIRUBIN NEGATIVE (NEGATIVE); URINE BLOOD TRACE-INTACT (NEGATIVE); URINE COLOR YELLOW (YELLOW); URINE GLUCOSE (UA) NEGATIVE (NEGATIVE); URINE KETONE NEGATIVE (NEGATIVE); URINE LEUKOCYTE ESTERASE NEGATIVE Leu/uL (NEGATIVE); URINE PROTEIN NEGATIVE mg/dL (<30 mg/dL); URINE UROBILINOGEN 0.2 E.U./dL (<1 E.U./dL)
[2017-04-12 22:19] LABS: URINE BACTERIA TRACE (NEG); URINE RBC 0 - 2 /hpf (0-2); URINE WBC 0 - 2 /hpf (0-6)
--- NOTE | 2017-04-13 09:24 | CARD ---
APPROVED REPORT EKG Measurement Heart [id number] <Conclusion> Normal sinus rhythm LAD PRWP NSSTW changes No change
[2017-04-13 09:34] LABS: BLOOD UREA NITROGEN 12 mg/dL (7-21); CALCIUM 9.7 mg/dL (8.4-10.5); CARBON DIOXIDE 25 mmol/L (21-33); CHLORIDE 106 mmol/L (98-107); GFR AFRICAN-AMERICAN > 60; GLUCOSE,RANDOM 157 mg/dL (70-110); MAGNESIUM 1.7 mg/dL (1.7-2.2); POTASSIUM 3.8 mmol/L (3.6-5.0); SODIUM 138 mmol/L (132-148)
--- NOTE | 2017-04-13 10:48 | CP.PCM.CON ---
<Norma Aguilar - Last Filed: 04/13/17 10:49> History of Present Illness - History of Present Illness History of Present Illness: GI Fellow PGY4 Consult Note This is a 81yF with history of paroxysmal Atrial fibrillation on warfarin, Hypertension, Hypothyroidism, CVA, and lymphocytic colitis on Budesonide 6mg daily presenting s/p fall and complaining of nausea, vomiting, abdominal pain and diarrhea. She reports she tripped and fell at home and denies loss of consciousness. Pt says that her entire family has been sick for the past two weeks with diarrhea, nausea and vomiting, including her daughter and small children. She denies any fevers, chills and any further episodes of vomiting. At this time she is experiencing nausea but no diarrhea for one day. Pt also endorses taking a Z-pack abx a few weeks ago for cold. She notes seeing Dr. Beck for history of microscopic colitis. She has been using Budesonide daily with note of one to two formed stools daily. She uses Imodium as needed, especially when she plans to eat out to decrease diarrheal episodes. She denies melena, hematochezia. Prior colonoscopy 09/2015 with diagnosis of lymphocytic colitis. ROS: A 12pt ROS was negative except as above PmHx: As stated in HPI PsHx: Unable to recall SHx: Denies tobacco, etoh, or drugs FHx: Denies hx of colon cancer Past Patient History - Infectious Disease Hx of Infectious Diseases: None - Tetanus Immunizations Tetanus Immunization: Unknown - Past Social History Smoking Status: Former Smoker - CARDIAC Hx Cardiac Disorders: Yes Hx Hypertension: Yes - PULMONARY Hx Respiratory Disorders: No - NEUROLOGICAL Hx Neurological Disorder: Yes HX Cerebrovascular Accident: Yes Hx Dizziness: Yes (VERTIGO) - HEENT Hx HEENT Problems: Yes Hx Cataracts: Yes (WITH SX) - RENAL Hx Chronic Kidney Disease: No - ENDOCRINE/METABOLIC Hx Endocrine Disorders: Yes Hx Diabetes Mellitus Type 2: Yes Hx Hypothyroidism: Yes - HEMATOLOGICAL/ONCOLOGICAL Hx Blood Disorders: Yes Hx Shingles: Yes - INTEGUMENTARY Hx Dermatological Problems: Yes Hx Eczema: Yes Other/Comment: 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 on radiation therapy - MUSCULOSKELETAL/RHEUMATOLOGICAL Hx Musculoskeletal Disorders: Yes Hx Falls: Yes Hx Unsteady Gait: Yes (CANE) - GASTROINTESTINAL Hx Gastrointestinal Disorders: Yes (CHOLECYSTECTOMY,APPENDECTOMY,) Hx Gastroesophageal Reflux: Yes - GENITOURINARY/GYNECOLOGICAL Hx Genitourinary Disorders: No - PSYCHIATRIC Hx Psychophysiologic Disorder: Yes Hx Anxiety: Yes Hx Substance Use: No - SURGICAL HISTORY Hx Appendectomy: Yes Hx Cardiac Catheterization: Yes (3 stents) Hx Cholecystectomy: Yes Hx Coronary Stent: Yes Hx Hysterectomy: Yes Other/Comment: TONSILLECTOMY - ANESTHESIA Hx Anesthesia: Yes Hx Anesthesia Reactions: No Hx Malignant Hyperthermia: No Meds Allergies/Adverse Reactions: Allergies Allergy/AdvReac Type Severity Reaction Status Date / Time lactose Allergy Severe DIARRHEA Verified 02/19/17 09:37 Penicillins Allergy Severe Epigastric Verified 02/19/17 09:37 Pain Pork/Porcine Containing Allergy Severe VOMITING Verified 02/19/17 09:37 Products - Medications Medications: Current Medications Amlodipine Besylate (Norvasc) 5 mg PO DAILY [facility] Budesonide (Entocort Ec) 6 mg PO DAILY [facility] Famotidine 20 mg/ (Miscellaneous) 50 mls @ 100 mls/hr IVPB DAILY [facility] Insulin Human Regular (Humulin R Low) 0 units SC ACHS [facility] PRN Reason: Protocol Isosorbide Mononitrate (Imdur) 60 mg PO DAILY [facility] Levothyroxine Sodium (Synthroid) 112 mcg PO 0600 [facility] Physical Exam - Constitutional Appears: Non-toxic, No Acute Distress - Head Exam Head Exam: ATRAUMATIC, NORMAL INSPECTION, NORMOCEPHALIC - Eye Exam Eye Exam: EOMI, Periorbital swelling, PERRL Additional comments: Right eye bruising, right temporal laceration with dressing - ENT Exam ENT Exam: Mucous Membranes Moist, Normal Exam - Respiratory Exam Respiratory Exam: Clear to Auscultation Bilateral, NORMAL BREATHING PATTERN - Cardiovascular Exam Cardiovascular Exam: Irregular Rhythm - GI/Abdominal Exam GI & Abdominal Exam: Normal Bowel Sounds, Soft. absent: Distended, Guarding, Organomegaly, Rebound, Tenderness - Rectal Exam Rectal Exam: Deferred - Extremities Exam Extremities exam: Positive for: normal inspection - Back Exam Back exam: NORMAL INSPECTION - Neurological Exam Neurological exam: Alert, Oriented x3 - Psychiatric Exam Psychiatric exam: Normal Affect, Normal Mood - Skin Skin Exam: Dry, Warm Additional comments: ecchymosis of right eye and forehead Results - Vital Signs Recent Vital Signs: Last Vital Signs Temp 98.3 F 04/13/17 02:56 Pulse 67 04/13/17 02:56 Resp 18 04/13/17 01:08 BP 171/68 H 04/13/17 02:56 Pulse Ox 95 04/13/17 02:56 - Labs Result Diagrams: 04/12/17 17:06 04/13/17 09:20 Labs: Laboratory Results - last 24 hr 04/12/17 04/13/17 04/13/17 21:55 07:19 09:20 Sodium 138 Potassium 3.8 Chloride 106 Carbon Dioxide 25 Anion Gap 11 BUN 12 Creatinine 0.9 Est GFR ( Amer) > 60 Est GFR (Non-Af Amer) > 60 POC Glucose (mg/dL) 152 H Random Glucose 157 H Calcium 9.7 Magnesium 1.7 Urine Color Yellow Urine Appearance Clear Urine pH 6.0 Ur Specific [place] 1.010 Urine Protein Negative Urine Glucose (UA) Negative Urine Ketones Negative Urine Blood Trace-intact H Urine Nitrate Negative Urine Bilirubin Negative Urine Urobilinogen 0.2 Ur Leukocyte Esterase Negative Urine RBC 0 - 2 Urine WBC 0 - 2 Ur Epithelial Cells 1 - 3 Urine Bacteria Trace Assessment & Plan - Assessment and Plan (Free Text) Assessment: This is a 81yF presenting s/p fall with complaints of nausea, abdominal pain, vomiting and diarrhea. 1. Hx of Lymphocytic colitis 2. Acute Gastroenteritis 3. s/p Fall Plan: -Continue supportive care antiemetic, IVF hydration,recommend physical therapy with recent fall -Pt's symptoms improving with no further diarrhea and sick contacts at home with similar GI issues, likely acute gastroenteritis -No WBC, no fevers, no indication for abx use, supportive care -Will check stool studies and r/o c.diff with recent abx use -Will restart home dose of Budesonide 6mg daily to prevent worsening of lymphocytic colitis -Advance diet as tolerated -Will continue to follow closely <Moris Beck - Last Filed: 04/13/17 11:37> Meds - Medications Medications: Current Medications Amlodipine Besylate (Norvasc) 5 mg PO DAILY [facility] Last Admin: 04/13/17 11:05 Dose: 5 mg Budesonide (Entocort Ec) 6 mg PO DAILY [facility] Famotidine 20 mg/ (Miscellaneous) 50 mls @ 100 mls/hr IVPB DAILY [facility] Last Admin: 04/13/17 11:14 Dose: 100 mls/hr Insulin Human Regular (Humulin R Low) 0 units SC ACHS [facility] PRN Reason: Protocol Isosorbide Mononitrate (Imdur) 60 mg PO DAILY [facility] Last Admin: 04/13/17 11:05 Dose: 60 mg Levothyroxine Sodium (Synthroid) 112 mcg PO 0600 [facility] Results - Vital Signs Recent Vital Signs: Last Vital Signs Temp 98.3 F 04/13/17 02:56 Pulse 67 04/13/17 02:56 Resp 18 04/13/17 01:08 BP 171/68 H 04/13/17 02:56 Pulse Ox 95 04/13/17 02:56 - Labs Result Diagrams: 04/12/17 17:06 04/13/17 09:20 Labs: Laboratory Results - last 24 hr 04/12/17 04/13/17 04/13/17 21:55 07:19 09:20 Sodium 138 Potassium 3.8 Chloride 106 Carbon Dioxide 25 Anion Gap 11 BUN 12 Creatinine 0.9 Est GFR ( Amer) > 60 Est GFR (Non-Af Amer) > 60 POC Glucose (mg/dL) 152 H Random Glucose 157 H Calcium 9.7 Magnesium 1.7 Urine Color Yellow Urine Appearance Clear Urine pH 6.0 Ur Specific [place] 1.010 Urine Protein Negative Urine Glucose (UA) Negative Urine Ketones Negative Urine Blood Trace-intact H Urine Nitrate Negative Urine Bilirubin Negative Urine Urobilinogen 0.2 Ur Leukocyte Esterase Negative Urine RBC 0 - 2 Urine WBC 0 - 2 Ur Epithelial Cells 1 - 3 Urine Bacteria Trace 04/13/17 11:14 Sodium Potassium Chloride Carbon Dioxide Anion Gap BUN Creatinine Est GFR ( Amer) Est GFR (Non-Af Amer) POC Glucose (mg/dL) 149 H Random Glucose Calcium Magnesium Urine Color Urine Appearance Urine pH Ur Specific [place] Urine Protein Urine Glucose (UA) Urine Ketones Urine Blood Urine Nitrate Urine Bilirubin Urine Urobilinogen Ur Leukocyte Esterase Urine RBC Urine WBC Ur Epithelial Cells Urine Bacteria Attending/Attestation - Attestation I have personally seen and examined this patient.: Yes I have fully participated in the care of the patient.: Yes I have reviewed all pertinent clinical information: Yes Notes (Text): 04/13/17 11:35 81 year old female with h/o dm, obesity, microscopic colitis admitted after fall , also with diarrhea. She likely has an acute viral illness that she contracted from household contacts and should be self limited. She should continue taking her budesonide 6 mg per day for her microscopic colitis as maintenance therapy. If she has a loose bowel movement, it should be sent for culture/C. diff to r/o infection. Advance diet as tolerated. Ok for discharge from Gi standpoint
[2017-04-13] MEDS: Famotidine 20mg/50ml 20 MG in Premixed IV 50 EA IVPB SCH (11:14)
[2017-04-13] MEDS: Budesonide 3 mg ER Cap PO SCH (11:44)
[2017-04-13] MEDS: Insulin Reg-LOW-Coverage SC SCH ×2 (11:47→18:55)
[2017-04-13 13:18] LABS: INR 1.74 (0.93-1.08)
--- NOTE | 2017-04-13 13:37 | CP.PCM.CON ---
History of Present Illness - History of Present Illness History of Present Illness: General Surgery Consult Note for Dr. Qiu Reason for consult: facial wound 81 F with PMH of paroxysmal Atrial fibrillation on warfarin, Hypertension, Hypothyroidism, CVA, lymphocytic colitis, s/p fall with complaint of facial wound. Patient was admitted for nausea/vomiting, abdominal pain and diarrhea on 04/11. She reports that she was not feeling well and went to walk the dog. As she was walking to the door she developed vertigo and dizziness/lightheadedness which caused her to trip and fall. She admits head trauma but denies loss of consciousness. CT head and maxillofacial bones were performed which showed swelling/hematome of soft tissue with no eveidence of acute intracranial pathology or facial fracture. Patient rates pain as mild. She describes it as intermittent aching pain located above right orbit. She has associated headache. Denies any alleviating or exacerbating factors. Patient has no other complaints at this time. PMD: Dr. Deena Jones PMH: paroxysmal Atrial fibrillation on warfarin, Hypertension, Hypothyroidism, CVA, lymphocytic colitis, s/p fall Meds: As per EMR Allergy: lactose, PCN, Pork PSH: unknown FH: unknown Social: denies tobacco/EtOH/illicit drug use Review of Systems - Review of Systems All systems: reviewed and no additional remarkable complaints except (as per HPI ) Past Patient History - Infectious Disease Hx of Infectious Diseases: None - Tetanus Immunizations Tetanus Immunization: Unknown - Past Social History Smoking Status: Former Smoker - CARDIAC Hx Cardiac Disorders: Yes Hx Hypertension: Yes - PULMONARY Hx Respiratory Disorders: No - NEUROLOGICAL Hx Neurological Disorder: Yes HX Cerebrovascular Accident: Yes Hx Dizziness: Yes (VERTIGO) - HEENT Hx HEENT Problems: Yes Hx Cataracts: Yes (WITH SX) - RENAL Hx Chronic Kidney Disease: No - ENDOCRINE/METABOLIC Hx Endocrine Disorders: Yes Hx Diabetes Mellitus Type 2: Yes Hx Hypothyroidism: Yes - HEMATOLOGICAL/ONCOLOGICAL Hx Blood Disorders: Yes Hx Shingles: Yes - INTEGUMENTARY Hx Dermatological Problems: Yes Hx Eczema: Yes Other/Comment: 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 on radiation therapy - MUSCULOSKELETAL/RHEUMATOLOGICAL Hx Musculoskeletal Disorders: Yes Hx Falls: Yes Hx Unsteady Gait: Yes (CANE) - GASTROINTESTINAL Hx Gastrointestinal Disorders: Yes (CHOLECYSTECTOMY,APPENDECTOMY,) Hx Gastroesophageal Reflux: Yes - GENITOURINARY/GYNECOLOGICAL Hx Genitourinary Disorders: No - PSYCHIATRIC Hx Psychophysiologic Disorder: Yes Hx Anxiety: Yes Hx Substance Use: No - SURGICAL HISTORY Hx Appendectomy: Yes Hx Cardiac Catheterization: Yes (3 stents) Hx Cholecystectomy: Yes Hx Coronary Stent: Yes Hx Hysterectomy: Yes Other/Comment: TONSILLECTOMY - ANESTHESIA Hx Anesthesia: Yes Hx Anesthesia Reactions: No Hx Malignant Hyperthermia: No Meds Allergies/Adverse Reactions: Allergies Allergy/AdvReac Type Severity Reaction Status Date / Time lactose Allergy Severe DIARRHEA Verified 02/19/17 09:37 Penicillins Allergy Severe Epigastric Verified 02/19/17 09:37 Pain Pork/Porcine Containing Allergy Severe VOMITING Verified 02/19/17 09:37 Products - Medications Medications: Current Medications Amlodipine Besylate (Norvasc) 5 mg PO DAILY [facility] Last Admin: 04/13/17 11:05 Dose: 5 mg Budesonide (Entocort Ec) 6 mg PO DAILY [facility] Last Admin: 04/13/17 11:44 Dose: 6 mg Famotidine 20 mg/ (Miscellaneous) 50 mls @ 100 mls/hr IVPB DAILY [facility] Last Admin: 04/13/17 11:14 Dose: 100 mls/hr Insulin Human Regular (Humulin R Low) 0 units SC ACHS [facility] PRN Reason: Protocol Last Admin: 04/13/17 11:47 Dose: Not Given Isosorbide Mononitrate (Imdur) 60 mg PO DAILY [facility] Last Admin: 04/13/17 11:05 Dose: 60 mg Levothyroxine Sodium (Synthroid) 112 mcg PO 0600 [facility] Physical Exam - Constitutional Appears: No Acute Distress - Head Exam Head Exam: NORMOCEPHALIC Additional comments: 2 cm facial wound above Right orbit - no erythema or drainage large ecchymosis over Right orbit extending to Right frontal and zygomatic area tender to palpation - Eye Exam Eye Exam: EOMI, Normal appearance Pupil Exam: PERRL - ENT Exam ENT Exam: Mucous Membranes Moist - Respiratory Exam Respiratory Exam: NORMAL BREATHING PATTERN - Cardiovascular Exam Cardiovascular Exam: REGULAR RHYTHM - GI/Abdominal Exam GI & Abdominal Exam: Soft. absent: Tenderness - Extremities Exam Extremities exam: Negative for: calf tenderness - Back Exam Back exam: absent: CVA tenderness (L), CVA tenderness (R) - Neurological Exam Neurological exam: Alert, CN II-XII Intact, Oriented x3 - Psychiatric Exam Psychiatric exam: Normal Affect, Normal Mood - Skin Skin Exam: Dry, Warm Results - Vital Signs Recent Vital Signs: Last Vital Signs Temp 98.2 F 04/13/17 07:30 Pulse 60 04/13/17 07:30 Resp 18 04/13/17 07:30 BP 129/59 L 04/13/17 07:30 Pulse Ox 95 04/13/17 07:30 - Labs Result Diagrams: 04/14/17 07:00 04/14/17 07:00 Labs: Laboratory Results - last 24 hr 04/12/17 04/13/17 04/13/17 21:55 07:19 09:20 PT INR Sodium 138 Potassium 3.8 Chloride 106 Carbon Dioxide 25 Anion Gap 11 BUN 12 Creatinine 0.9 Est GFR ( Amer) > 60 Est GFR (Non-Af Amer) > 60 POC Glucose (mg/dL) 152 H Random Glucose 157 H Calcium 9.7 Magnesium 1.7 Urine Color Yellow Urine Appearance Clear Urine pH 6.0 Ur Specific [place] 1.010 Urine Protein Negative Urine Glucose (UA) Negative Urine Ketones Negative Urine Blood Trace-intact H Urine Nitrate Negative Urine Bilirubin Negative Urine Urobilinogen 0.2 Ur Leukocyte Esterase Negative Urine RBC 0 - 2 Urine WBC 0 - 2 Ur Epithelial Cells 1 - 3 Urine Bacteria Trace 04/13/17 04/13/17 11:14 13:00 PT 19.4 H INR 1.74 H Sodium Potassium Chloride Carbon Dioxide Anion Gap BUN Creatinine Est GFR ( Amer) Est GFR (Non-Af Amer) POC Glucose (mg/dL) 149 H Random Glucose Calcium Magnesium Urine Color Urine Appearance Urine pH Ur Specific [place] Urine Protein Urine Glucose (UA) Urine Ketones Urine Blood Urine Nitrate Urine Bilirubin Urine Urobilinogen Ur Leukocyte Esterase Urine RBC Urine WBC Ur Epithelial Cells Urine Bacteria Assessment & Plan - Assessment and Plan (Free Text) Assessment: 81 F with facial wound above Right orbit -Apply bacitracin to wound, no need to cover -Analgesics PRN -No surgical intervention needed at this time -Medical management as per primary -Will discuss with Dr. Lazarus Willingham PGY1
--- NOTE | 2017-04-13 16:51 | CON ---
DATE: 04/13/2017 NEUROLOGY CONSULT CHIEF COMPLAINT: Status post fall and generalized weakness. HISTORY OF PRESENT ILLNESS: This 81-year-old woman known to me from the past with a history of hypothyroidism, hypertension, paroxysmal atrial fibrillation, on warfarin, history of CVA, history of lymphocytic colitis, on budesonide, presented status post fall while she was walking in the hallway and was complaining of generalized nausea, vomiting, abdominal pain, diarrhea prior to her fall and had tripped and fell. Denies any loss of consciousness. She has ecchymosis around her face. CAT scan of the head showed no acute intracranial abnormality. Currently, she is moving all her extremities. No nausea at this time. GI note reviewed. CT of the head showed no acute intracranial abnormality. She s mildly dehydrated when she came, but otherwise she is stable. Blood pressures are stable. Follows all commands. Moves all extremities. ALLERGIES: TO PENICILLIN PRODUCTS. REVIEW OF SYSTEMS: A 14-point review of systems is negative except as in the HPI. SOCIAL HISTORY: No illicit drug use, smoking, no EtOH use. PAST MEDICAL HISTORY: History of CVA with chronic ataxia, insulin dependent diabetes mellitus, dysuria, UTI, vertigo, paroxysmal atrial fibrillation, hypothyroidism, hypertension, lymphocyte colitis. MEDICATIONS: Reviewed by nurse reconciliation sheet. FAMILY HISTORY: Noncontributory. PHYSICAL EXAMINATION: VITAL SIGNS: Temperature 98.2, pulse rate 60, blood pressure 129/59, respiratory rate of 18, oxygen saturation 95% on room air. GENERAL: The patient is sitting up in bed, in no acute distress. There is ecchymosis around her right eye and right temporal laceration with dressing. HEENT: Head is atraumatic and normocephalic. PERRLA. Extraocular muscles intact. NECK: Supple. No JVD. No adenopathy noted. LUNGS: Clear to auscultation. No adventitious sounds. HEART: S1 and S2, normal rate and rhythm. No murmurs, rubs, or gallops. ABDOMEN: Soft, nontender, nondistended. Bowel sounds present. EXTREMITIES: No clubbing, no cyanosis. Peripheral pulses 2+ felt bilaterally. NEUROLOGIC: The patient is alert and oriented to person and place, month, and year. Speech fluent without errors. Cranial nerves II through XII intact. Motor, moves all extremities equally, no apparent distress. Sensory exam: Decreased light touch, pinprick, proprioception up to the calves bilaterally, decreased vibration of the toes. DTRs are 2+ throughout, 1 at both knees and ankles. Coordination and [id number] intact. Gait is deferred for now. LABORATORY DATA: Sodium 138, potassium 2.8, chloride 106, carbon dioxide 25, BUN of 12, creatinine 0.9, random glucose 157. ASSESSMENT: This is a 81-year-old woman well known to me with past medical history of lymphocytic colitis, paroxysmal atrial fibrillation, on Coumadin, hypothyroidism, hypertension, chronic cerebral ataxia, colitis who presented with diarrhea, vomiting, and abdominal pain prior to her fall in which she had a fall in her hallway which is mechanical in nature after tripping and got generalized weakness. Currently she is at her baseline, moving all extremities, chronic ataxia due to prior CVA. CAT scan of the head showed no acute intracranial abnormality. There is ecchymosis around her right eyelid. Fall secondary to generalized weakness and deconditioned state given her recent history of diarrhea and has acute gastroenteritis per GI. At this time, recommend: 1. IV hydration. 2. Monitor electrolytes and correct accordingly. 3. Avoid systolic drops in blood pressure. 4. PT/OT evaluation. 5. We will repeat a CT head tomorrow morning to evaluate for any bleeding, and she is clinically stable from my standpoint. Raul Wisdom MD
--- NOTE | 2017-04-13 22:32 | HP ---
HISTORY OF PRESENT ILLNESS: A 81-year-old female who states that on , she was started to having nausea, vomiting and diarrhea. She also fell at home sustaining a right head trauma. She came to the emergency room yesterday because of the nausea, the concern about the swelling over her right eye and the diarrhea that she had been having. PAST MEDICAL HISTORY: Atrial fibrillation, stroke with cerebellar ataxia, lymphocytic colitis, cholecystectomy, coronary disease, hypothyroid disease, hyperlipidemia, gait disorder, respiratory tract infections, cellulitis of the lower extremities. The patient denies any fever or chills history. She says that a number of family members are sick with the same illness. ALLERGIES: TO LACTOSE, PENICILLIN, AND PORK. HOME MEDICATIONS: Consist of Entocort, Budesonide 6 mg two capsules daily, Celexa 20 mg daily, Humulin insulin 25 units b.i.d., Imdur 60 mg daily, Synthroid 125 mcg daily, meclizine 12.5 mg b.i.d. p.r.n., ranitidine 1 tab daily, warfarin 2.5 mg at bedtime, Norvasc 5 mg daily and clonazepam 0.5 mg b.i.d. REVIEW OF SYSTEMS: A 10 systems are reviewed. Pertinent findings is that, GENERAL: The patient has an ecchymotic area over the right forehead eye area, has a dressing over that area. VITAL SIGNS: Her temp is 98.2, her blood pressure is 129/59, her pulse is 60, and oxygen saturation is 95% on room air NECK: Supple. There is no JVD. HEART: S1 and S2 rhythm. ABDOMEN: Obese, soft. Positive bowel sounds. LUNGS: Clear. EXTREMITIES: No evidence of edema. NEUROLOGICAL: She is alert and oriented x3. LABORATORY DATA: Urinalysis that showed trace intact blood, trace bacteria. Chemistry showed a sodium of 135, potassium 3.5, chloride 104, CO2 of 22, BUN of 12 and creatinine of 0.8. The random glucose was 189. Total bilirubin is 1.5. LFTs are currently normal. Lipase was 37, amylase was 35, which is normal. Random blood sugar was 152. She had a PT of 20.1 with INR of 1.8, PTT of 26.3. CBC showed a WBC of 5.4, RBC of 4.49, hemoglobin 13.6, hematocrit 41.6, and platelets count 132. Venous blood gas showed that lactate was normal at 1.8. A CAT scan of the head showed evidence of a hematoma over the right frontal scalp area. No acute intracranial hemorrhage or acute territorial types of infarct. There is a small chronic lacunar infarct within the left thalamus, scattered foci of hypodensity within the cerebral white matter representing small vessel ischemic disease in a patient of this age, stable atrophy. Her CAT scan of the maxillofacial area is reported as showing no acute facial bone fracture, paranasal sinus disease is noted and soft tissue swelling of the hematoma of the right frontal scalp and suborbital area. The abdomen and pelvis CAT scan showed no definite acute posttraumatic abnormalities. Has cardiomegaly. There is a small pericardial effusion. Has hepatomegaly. There is borderline splenomegaly. There is a hypodense probable right renal cyst, probable small hypodense left renal cyst, and diverticulosis. EKG was reported as showing a sinus rhythm with the left anterior fascicular block. IMPRESSION: 1. This is a 81-year-old female with history of nausea, vomiting and diarrhea. 2. History of head trauma, status post fall. 3. Hyperkalemia. 4. Hyperglycemia. 5. Gait disorder. 6. Lymphocytic colitis history. We will request GI and Neurology consult, also get Cardiology opinion regarding the interpretation of the pericardial effusion. We will reconcile her meds with discussion with GI and Cardiology. We will request Neurology an opinion regarding the frequent falls that the patient has and her persistent use of Coumadin. We will get Cardiology's opinion as well. Stools will get sent for C. diff and culture, and blood cultures have been ordered. Deena Jones MD
[2017-04-14] MEDS: Insulin Reg-LOW-Coverage SC SCH ×4 (02:58→16:49)
[2017-04-14] MEDS: Levothyroxine 112 MCG TAB PO SCH (05:58)
[2017-04-14 07:37] LABS: BASO # 0.02 K/mm3 (0.0-2.0); BASO % 0.4 % (0.0-3.0); EOS # 0.1 (0.0-0.7); EOS % 2.8 % (1.5-5.0); GRAN # 2.56 (1.4-6.5); GRAN % 54.2 % (50.0-68.0); HEMATOCRIT 39.2 % (36.0-48.0); LYMPH # 1.4 (1.2-3.4); LYMPH % 29.7 % (22.0-35.0); MEAN CELL VOLUME 92.7 fl (80.0-105.0); MEAN CORPUSCULAR HEMOGLOBIN 29.8 pg (25.0-35.0); MEAN CORPUSCULAR HGB CONC 32.1 g/dl (31.0-37.0); MEAN PLATELET VOLUME 11.2 fl (7.0-11.0); MONO # 0.6 (0.1-0.6); MONO % 12.9 % (1.0-6.0); RED CELL DISTRIBUTION WIDTH 13.4 % (11.5-14.5); WHITE BLOOD COUNT 4.7 10^3/ul (4.5-11.0)
[2017-04-14 07:48] LABS: INR 1.6 (0.93-1.08)
[2017-04-14 07:54] LABS: BLOOD UREA NITROGEN 12 mg/dL (7-21); CALCIUM 10.1 mg/dL (8.4-10.5); CARBON DIOXIDE 27 mmol/L (21-33); CHLORIDE 106 mmol/L (98-107); GFR AFRICAN-AMERICAN > 60; GLUCOSE,RANDOM 144 mg/dL (70-110); POTASSIUM 3.8 mmol/L (3.6-5.0); SODIUM 139 mmol/L (132-148)
--- NOTE | 2017-04-14 07:59 | CP.PCM.PN ---
<Norma Aguilar - Last Filed: 04/14/17 09:27> Subjective - Date & Time of Evaluation Date of Evaluation: 04/14/17 Time of Evaluation: 07:15 - Subjective Subjective: GI Fellow PGY4 Progress Note Pt seen and evaluated at bedside, she feels better but denies abdominal pain or vomiting. Pt still reports some nausea but was able to tolerate breakfast eggs yesterday. No further diarrhea. ROS: A 12pt ROS was negative except as above. Objective - Vital Signs/Intake and Output Vital Signs (last 24 hours): Temp Pulse Resp BP Pulse Ox 97.7 F 67 18 122/56 L 96 04/13/17 17:08 04/13/17 17:08 04/13/17 17:08 04/13/17 17:08 04/13/17 17:08 Intake and Output: 04/14/17 04/14/17 06:59 18:59 Intake Total 600 Balance 600 - Medications Medications: Current Medications Acetaminophen (Tylenol 325mg Tab) 650 mg PO Q6H PRN PRN Reason: Fever >100.4 F Last Admin: 04/14/17 06:55 Dose: 650 mg Amlodipine Besylate (Norvasc) 5 mg PO DAILY [facility] Last Admin: 04/13/17 11:05 Dose: 5 mg Budesonide (Entocort Ec) 6 mg PO DAILY [facility] Last Admin: 04/13/17 11:44 Dose: 6 mg Famotidine 20 mg/ (Miscellaneous) 50 mls @ 100 mls/hr IVPB DAILY [facility] Last Admin: 04/13/17 11:14 Dose: 100 mls/hr Insulin Human Regular (Humulin R Low) 0 units SC ACHS [facility] PRN Reason: Protocol Last Admin: 04/14/17 02:58 Dose: Not Given Isosorbide Mononitrate (Imdur) 60 mg PO DAILY [facility] Last Admin: 04/13/17 11:05 Dose: 60 mg Levothyroxine Sodium (Synthroid) 112 mcg PO 0600 [facility] Last Admin: 04/14/17 05:58 Dose: 112 mcg Ondansetron HCl (Zofran Inj) 4 mg IVP Q6H PRN PRN Reason: Nausea/Vomiting Last Admin: 04/14/17 06:55 Dose: 4 mg - Labs Labs: 04/14/17 07:00 04/14/17 07:00 PT 17.8 SECONDS (9.4-12.5) H 04/14/17 07:00 INR 1.60 (0.93-1.08) H 04/14/17 07:00 APTT 26.3 Seconds (25.1-36.5) 04/12/17 17:14 - Constitutional Appears: Non-toxic, No Acute Distress - Head Exam Head Exam: ATRAUMATIC, NORMAL INSPECTION, NORMOCEPHALIC - Eye Exam Eye Exam: EOMI, PERRL - ENT Exam ENT Exam: Mucous Membranes Moist, Normal Exam - Neck Exam Neck Exam: Full ROM, Normal Inspection - Respiratory Exam Respiratory Exam: Clear to Ausculation Bilateral, NORMAL BREATHING PATTERN - Cardiovascular Exam Cardiovascular Exam: REGULAR RHYTHM - GI/Abdominal Exam GI & Abdominal Exam: Soft, Normal Bowel Sounds. absent: Distended, Guarding, Tenderness, Organomegaly, Rebound - Rectal Exam Rectal Exam: Deferred - Extremities Exam Extremities Exam: Full ROM, Normal Inspection - Back Exam Back Exam: NORMAL INSPECTION - Neurological Exam Neurological Exam: Alert, Awake, Oriented x3 - Psychiatric Exam Psychiatric exam: Normal Affect, Normal Mood - Skin Skin Exam: Dry, Intact, Warm Assessment and Plan - Assessment and Plan (Free Text) Assessment: This is a 81yF presenting s/p fall with complaints of nausea, abdominal pain, vomiting and diarrhea. 1. Hx of Lymphocytic colitis 2. Acute Gastroenteritis Plan: -Continue supportive care antiemetic and gentle IVF hydration -Pt with no further diarrhea, nausea or vomiting, tolerating liquid diet -Advance diet as tolerated -No WBC, no fevers, no indication for abx use, supportive care -Will check stool studies if pt has a bm -Continue home dose of Budesonide 6mg daily for maintenance treatment of microscopic colitis -Per GI perspective, pt okay for discharge home <Moris Beck - Last Filed: 04/14/17 10:39> Objective - Vital Signs/Intake and Output Vital Signs (last 24 hours): Temp Pulse Resp BP Pulse Ox 97.7 F 60 18 140/61 96 04/14/17 07:30 04/14/17 07:30 04/14/17 07:30 04/14/17 07:30 04/14/17 07:30 Intake and Output: 04/14/17 04/14/17 06:59 18:59 Intake Total 600 Balance 600 - Medications Medications: Current Medications Acetaminophen (Tylenol 325mg Tab) 650 mg PO Q6H PRN PRN Reason: Fever >100.4 F Last Admin: 04/14/17 06:55 Dose: 650 mg Amlodipine Besylate (Norvasc) 5 mg PO DAILY [facility] Last Admin: 04/13/17 11:05 Dose: 5 mg Budesonide (Entocort Ec) 6 mg PO DAILY [facility] Last Admin: 04/13/17 11:44 Dose: 6 mg Famotidine 20 mg/ (Miscellaneous) 50 mls @ 100 mls/hr IVPB DAILY [facility] Last Admin: 04/13/17 11:14 Dose: 100 mls/hr Insulin Human Regular (Humulin R Low) 0 units SC ACHS [facility] PRN Reason: Protocol Last Admin: 04/14/17 02:58 Dose: Not Given Isosorbide Mononitrate (Imdur) 60 mg PO DAILY [facility] Last Admin: 04/13/17 11:05 Dose: 60 mg Levothyroxine Sodium (Synthroid) 112 mcg PO 0600 [facility] Last Admin: 04/14/17 05:58 Dose: 112 mcg Ondansetron HCl (Zofran Inj) 4 mg IVP Q6H PRN PRN Reason: Nausea/Vomiting Last Admin: 04/14/17 06:55 Dose: 4 mg - Labs Labs: 04/14/17 07:00 04/14/17 07:00 PT 17.8 SECONDS (9.4-12.5) H 04/14/17 07:00 INR 1.60 (0.93-1.08) H 04/14/17 07:00 APTT 26.3 Seconds (25.1-36.5) 04/12/17 17:14 Attending/Attestation - Attestation I have personally seen and examined this patient.: Yes I have fully participated in the care of the patient.: Yes I have reviewed all pertinent clinical information, including history, physical exam and plan: Yes Notes (Text): 04/14/17 10:38 81 year old female who is admitted after fall. She has a history of microscopic colitis maintained on 6 mg of budesonide. She may take immodium as needed for any breakthrough symptoms of diarrhea. She can advance diet as tolerated. She doesn't like the liquids so will try a soft diet.
--- NOTE | 2017-04-14 09:45 | CARD ---
APPROVED REPORT EKG Measurement Heart [id number] <Conclusion> Normal sinus rhythm PRWP Left anterior fascicular block Nonspecific T wave abnormality No change
[2017-04-14] MEDS: Famotidine 20mg/50ml 20 MG in Premixed IV 50 EA IVPB SCH (11:28)
[2017-04-14] MEDS ORDERED: Bacitracin Ointment 30 GM TUBE TOP PRN (11:49)
--- NOTE | 2017-04-14 11:56 | CP.PCM.PN ---
Subjective - Date & Time of Evaluation Date of Evaluation: 04/14/17 Time of Evaluation: 11:55 - Subjective Subjective: Surgery Pt s&e. NAOEN. Complains of facial pain. Denies bleeding Objective - Vital Signs/Intake and Output Vital Signs (last 24 hours): Temp Pulse Resp BP Pulse Ox 97.7 F 60 18 140/61 96 04/14/17 07:30 04/14/17 07:30 04/14/17 07:30 04/14/17 07:30 04/14/17 07:30 Intake and Output: 04/14/17 04/14/17 06:59 18:59 Intake Total 600 Balance 600 - Medications Medications: Current Medications Acetaminophen (Tylenol 325mg Tab) 650 mg PO Q6H PRN PRN Reason: Fever >100.4 F Last Admin: 04/14/17 06:55 Dose: 650 mg Amlodipine Besylate (Norvasc) 5 mg PO DAILY [facility] Last Admin: 04/14/17 11:28 Dose: 5 mg Bacitracin (Bacitracin) 0 gm TOP PRN PRN PRN Reason: Excoriation Budesonide (Entocort Ec) 6 mg PO DAILY [facility] Last Admin: 04/13/17 11:44 Dose: 6 mg Famotidine 20 mg/ (Miscellaneous) 50 mls @ 100 mls/hr IVPB DAILY [facility] Last Admin: 04/14/17 11:28 Dose: 100 mls/hr Insulin Human Regular (Humulin R Low) 0 units SC ACHS [facility] PRN Reason: Protocol Last Admin: 04/14/17 11:28 Dose: 1 units Isosorbide Mononitrate (Imdur) 60 mg PO DAILY [facility] Last Admin: 04/14/17 11:28 Dose: 60 mg Levothyroxine Sodium (Synthroid) 112 mcg PO 0600 [facility] Last Admin: 04/14/17 05:58 Dose: 112 mcg Ondansetron HCl (Zofran Inj) 4 mg IVP Q6H PRN PRN Reason: Nausea/Vomiting Last Admin: 04/14/17 06:55 Dose: 4 mg - Labs Labs: 04/14/17 07:00 04/14/17 07:00 PT 17.8 SECONDS (9.4-12.5) H 04/14/17 07:00 INR 1.60 (0.93-1.08) H 04/14/17 07:00 APTT 26.3 Seconds (25.1-36.5) 04/12/17 17:14 - Constitutional Appears: No Acute Distress - Head Exam Head Exam: absent: ATRAUMATIC, NORMAL INSPECTION, NORMOCEPHALIC Additional comments: R forehead and R orbital area: Ecchymosis. Swelling. TTP. 2x3 cm superficial abrasion. No bleeding. - Eye Exam Eye Exam: EOMI, PERRL Pupil Exam: NORMAL ACCOMODATION, PERRL - ENT Exam ENT Exam: Mucous Membranes Moist, Normal Exam - Neck Exam Neck Exam: Full ROM, Normal Inspection. absent: Lymphadenopathy - Respiratory Exam Respiratory Exam: Clear to Ausculation Bilateral, NORMAL BREATHING PATTERN - Cardiovascular Exam Cardiovascular Exam: REGULAR RHYTHM, +S1, +S2. absent: Murmur - GI/Abdominal Exam GI & Abdominal Exam: Soft, Normal Bowel Sounds. absent: Distended, Tenderness - Exam Exam: NORMAL INSPECTION - Extremities Exam Extremities Exam: Full ROM, Normal Capillary Refill, Normal Inspection. absent : Joint Swelling, Pedal Edema - Back Exam Back Exam: NORMAL INSPECTION - Neurological Exam Neurological Exam: Alert, Awake, CN II-XII Intact, Normal Gait, Oriented x3 - Psychiatric Exam Psychiatric exam: Normal Affect, Normal Mood - Skin Skin Exam: Abrasion, Erythema, Warm. absent: Intact, Normal Color, Pallor, Pallor Assessment and Plan - Assessment and Plan (Free Text) Assessment: 81 F with facial wound above Right orbit: superficial abrasion. -Apply bacitracin to wound, no need to cover -Analgesics PRN -No surgical intervention needed at this time -Medical management as per primary -CT reads no basal skull fracture. -Please reconsult as needed. discussed with Dr. Qiu
--- NOTE | 2017-04-14 15:44 | CT ---
PROCEDURE: CT HEAD WITHOUT CONTRAST. HISTORY: fall. COMPARISON: 04/12/2017 CT head TECHNIQUE: Axial computed tomography images were obtained through the head/brain without intravenous contrast. Radiation dose: Total exam DLP = 929.44 mGy-cm. This CT exam was performed using one or more of the following dose reduction techniques: Automated exposure control, adjustment of the mA and/or kV according to patient size, and/or use of iterative reconstruction technique. FINDINGS: HEMORRHAGE: No intracranial hemorrhage. BRAIN: No mass effect or edema. Cortical atrophy, periventricular small vessel disease VENTRICLES: Unremarkable. No hydrocephalus. CALVARIUM: Unremarkable. PARANASAL SINUSES: Chronic ethmoid air cell disease MASTOID AIR CELLS: Unremarkable as visualized. No inflammatory changes. OTHER FINDINGS: Right frontal Scalp contusion apparent on the previous study has receded. IMPRESSION: No acute intracranial abnormalities. No significant findings to account for the clinical presentation. No significant interval change compared to the prior examination(s).
[2017-04-14] MEDS: Budesonide 3 mg ER Cap PO SCH (17:46)
--- NOTE | 2017-04-14 18:23 | CON ---
DATE: 04/14/2017 CONSULTATION INDICATIONS: Fall, rule out syncope; paroxysmal atrial fibrillation on chronic Coumadin. HISTORY OF PRESENT ILLNESS: This is a 81-year-old woman well known to me admitted on the 04/12/2017 with a fall at home. Apparently, there is a viral type illness in her family. She became ill with nausea, vomiting, diarrhea, dehydration. While walking to the hallway with her dog, she fell and suffered facial trauma when her head hit the floor. She did not loose consciousness. There was no vertigo, palpitation, chest pain, shortness of breath and there has been no orthopnea, PND, fever, chills, rigors, sweats, cough, sputum production, and hemoptysis. This morning she is resting in bed on telemetry, she feels better. Her GI symptoms have improved. PAST MEDICAL HISTORY: Notable for coronary artery disease with remote myocardial infarction and coronary intervention. She has paroxysmal atrial fibrillation and was on Coumadin. She has a history of hypertension, lacunar stroke seen on current CT scans, TIA, diabetes, gallbladder surgery, appendectomy, hypothyroidism, lymphocytic colitis. There is no history of rheumatic fever, congestive heart failure or gout. MEDICATIONS: At the time of admission were Zantac, Celexa, insulin, Imdur, meclizine, warfarin, budesonide, levothyroxine, amlodipine, clonazepam. ALLERGIES: SHE KNOWS ALLERGY TO PENICILLIN, PORK, AND LACTOSE INTOLERANCE. SOCIAL HISTORY: She lives at home. She does not smoke cigarettes. She did not drink alcohol. She is ambulatory, but has gait instability and uses a cane. FAMILY HISTORY: Notable for heart disease and cancer. REVIEW OF SYSTEMS: A 10-point review of systems is otherwise unremarkable except as noted above. PHYSICAL EXAMINATION: GENERAL: She is well developed elderly woman with facial ecchymosis on the right side, in no acute distress on 5-R. VITAL SIGNS: Notable for pulse of 67, afebrile, blood pressure 122/56, respirations 18, O2 sat 96% on room air. HEENT: Reveals no neck vein distention, thyromegaly, carotid bruits. Mucus membranes moist. Conjunctivae pink. Left-sided facial ecchymosis above and around the right eye. NECK: Supple. LUNGS: Lung medina clear. HEART: Reveal normal first and second heart sound. There is a soft systolic murmur along the left sternal border. ABDOMEN: Soft, bowel sounds present. No mass, organomegaly, tenderness, rebound, guarding, CVA tenderness, palpable abdominal aortic aneurysm. EXTREMITIES: Revealed no cyanosis, clubbing or edema. NEUROLOGIC: She is awake, alert, and oriented. SKIN: Warm and dry. No rash or cellulitis. PSYCHIATRIC: Normal as to mood and affect. LABORATORY AND IMAGING: EKG demonstrates regular sinus rhythm with left axis deviation, poor R wave progress, nonspecific ST-wave changes, it was unchanged from prior EKG. CT scan of the head; maxillofacial CT scan; abdomen and pelvis CT scans are noted. The abdomen and pelvis CT scan mentions a small pericardial effusion. CBC is unremarkable. PT, INR 20.1 and 1.81 on admission; 17.8 and 1.60 today. Blood gases noted. Electrolytes; BUN, creatinine, blood sugars, calcium, magnesium are noted. No significant abnormalities seen. Urinalysis is noted. IMPRESSION: Melba Fuentes is a 81-year-old woman with multiple medical problems, long-standing cardiac problems with remote myocardial infarction and coronary intervention, paroxysmal atrial fibrillation on warfarin with an unsteady gait who fell at home in the setting of gastrointestinal illness probably viral with dehydration. I did not get a sense that there was a syncopal aspect and there was no loss of consciousness. She is; however, at increased risk of fall because of gait abnormality. She has been advised to utilized a walker in the home and to take fall precautions. As to whether not she is to continue taking warfarin for paroxysmal atrial fibrillation to prevent embolic events it is worth discussing. At this time, I would continue warfarin and monitor her INR carefully, keeping it in the therapeutic range as much as possible. If there continue to be falls, we may have to reconsider this. Her SINDHU score is very high (7) , so she is at high risk for embolic events and I would think it would be important to protect her from this. I will discussed this further with you. In the meantime, she is undergoing neurologic evaluation and GI evaluation. Her wounds are being care for. A repeat CAT scan is planned. She is getting budesonide, Imdur, amlodipine, famotine, Synthroid. She could be out of bed to chair today. I will follow along with you. I will make additional recommendations based on her clinical course. Do not hesitate to call if there are any questions. Alejo Mahajan MD MTDRita
--- NOTE | 2017-04-14 23:08 | PN ---
DATE: 04/14/2017 SUBJECTIVE: A 81-year-old female sitting in bed this morning. She states that she had a loose bowel movement and is still feeling a bit out of sorts. She states that her family is still sick at home as well. PHYSICAL EXAMINATION VITAL SIGNS: She has a temperature of 98.6, pulse of 67, blood pressure 130/65, her oxygen sat is 95% on room air. LABORATORY DATA: WBC of 4.7, RBC 4.23, hemoglobin 12.6, hematocrit 39.2, platelet count is 144. Her PT is 17.8 with INR 1.6. Chemistry shows normal electrolytes, her calcium is 10.1, and her blood sugar was 130. The patient had a repeat CAT scan of the head as ordered by Neurology which showed no change from prior. ASSESSMENT AND PLAN: We are awaiting input from Cardiology and Neurology regarding a frequent fall history, risk of bleeding and continuation of her Coumadin. She has been seen by Surgery for her wound to her right forehead. We will continue current medical care, level of care and adjust her diet through soft diet and await input from the individual consultants. Deena Jones MD APRIL
[2017-04-15 03:25] VITALS: RESP 20
[2017-04-15] MEDS: Levothyroxine 112 MCG TAB PO SCH (05:48)
[2017-04-15] MEDS: Insulin Reg-LOW-Coverage SC SCH ×3 (06:00→11:49)
--- NOTE | 2017-04-15 08:13 | CP.PCM.PN ---
Subjective - Date & Time of Evaluation Date of Evaluation: 04/15/17 Time of Evaluation: 07:00 - Subjective Subjective: Stable on 5R. No CP or SOB. V/S noted. PE: Lungs: clear Cor.: S1S2 Abd.: soft Ext.: no edema Neuro.: alert Labs: INR = 1.6 BC x2 NG at 48 hrs Objective - Vital Signs/Intake and Output Vital Signs (last 24 hours): Temp Pulse Resp BP Pulse Ox 98 F 66 20 130/65 97 04/15/17 00:49 04/15/17 00:49 04/15/17 00:49 04/14/17 16:17 04/15/17 00:49 Intake and Output: 04/15/17 04/15/17 06:59 18:59 Intake Total 180 Balance 180 - Medications Medications: Current Medications Acetaminophen (Tylenol 325mg Tab) 650 mg PO Q6H PRN PRN Reason: Fever >100.4 F Last Admin: 04/14/17 21:23 Dose: 650 mg Amlodipine Besylate (Norvasc) 5 mg PO DAILY [facility] Last Admin: 04/14/17 11:28 Dose: 5 mg Bacitracin (Bacitracin) 0 gm TOP PRN PRN PRN Reason: Excoriation Last Admin: 04/14/17 17:46 Dose: 1 applic Budesonide (Entocort Ec) 6 mg PO DAILY [facility] Last Admin: 04/14/17 17:46 Dose: 6 mg Famotidine 20 mg/ (Miscellaneous) 50 mls @ 100 mls/hr IVPB DAILY [facility] Last Admin: 04/14/17 11:28 Dose: 100 mls/hr Insulin Human Regular (Humulin R Low) 0 units SC ACHS [facility] PRN Reason: Protocol Last Admin: 04/15/17 06:00 Dose: Not Given Isosorbide Mononitrate (Imdur) 60 mg PO DAILY [facility] Last Admin: 04/14/17 11:28 Dose: 60 mg Levothyroxine Sodium (Synthroid) 112 mcg PO 0600 [facility] Last Admin: 04/15/17 05:48 Dose: 112 mcg Ondansetron HCl (Zofran Inj) 4 mg IVP Q6H PRN PRN Reason: Nausea/Vomiting Last Admin: 04/14/17 06:55 Dose: 4 mg - Labs Labs: PT 17.8 SECONDS (9.4-12.5) H 04/14/17 07:00 INR 1.60 (0.93-1.08) H 04/14/17 07:00 APTT 26.3 Seconds (25.1-36.5) 04/12/17 17:14 Assessment and Plan - Assessment and Plan (Free Text) Assessment: Mechanical Fall with head trauma CAD/Remote MN/PCI PAF on A/C, CHADS score = 8 Lacunar CVA TIA Diabetes GB Surgery Appendicitis Hypothyroidism Lymphocytic colitis. Plan: Resume warfarin Fall precautions at home. Utilize walker, etc As per neuro., GI, Surgery and Dr. Jones. If falls continue, may have to reconsider chronic A/C but she is at high risk for embolic events.
[2017-04-15 08:35] VITALS: BP 146/64; PULSE 53; TEMP 97; O2SAT 100
[2017-04-15] MEDS: Budesonide 3 mg ER Cap PO SCH (09:56)
[2017-04-15] MEDS: Famotidine 20mg/50ml 20 MG in Premixed IV 50 EA IVPB SCH (09:58)
--- NOTE | 2017-04-15 11:00 | CP.PCM.PN ---
<Norma Aguilar - Last Filed: 04/15/17 11:00> Subjective - Date & Time of Evaluation Date of Evaluation: 04/15/17 Time of Evaluation: 07:40 - Subjective Subjective: GI Fellow PGY4 Progress Note Pt seen and evaluated at bedside, she feels better, denies abdominal pain or vomiting. Pt tolerated dinner yesterday. No further diarrhea. ROS: A 12pt ROS was negative except as above. Objective - Vital Signs/Intake and Output Vital Signs (last 24 hours): Temp Pulse Resp BP Pulse Ox 97 F L 53 L 20 146/64 100 04/15/17 07:00 04/15/17 09:58 04/15/17 07:00 04/15/17 09:58 04/15/17 07:00 Intake and Output: 04/15/17 04/15/17 06:59 18:59 Intake Total 180 260 Balance 180 260 - Medications Medications: Current Medications Acetaminophen (Tylenol 325mg Tab) 650 mg PO Q6H PRN PRN Reason: Fever >100.4 F Last Admin: 04/14/17 21:23 Dose: 650 mg Amlodipine Besylate (Norvasc) 5 mg PO DAILY [facility] Last Admin: 04/15/17 09:58 Dose: 5 mg Bacitracin (Bacitracin) 0 gm TOP PRN PRN PRN Reason: Excoriation Last Admin: 04/14/17 17:46 Dose: 1 applic Budesonide (Entocort Ec) 6 mg PO DAILY [facility] Last Admin: 04/15/17 09:56 Dose: 6 mg Famotidine 20 mg/ (Miscellaneous) 50 mls @ 100 mls/hr IVPB DAILY [facility] Last Admin: 04/15/17 09:58 Dose: 100 mls/hr Insulin Human Regular (Humulin R Low) 0 units SC ACHS [facility] PRN Reason: Protocol Last Admin: 04/15/17 08:00 Dose: Not Given Isosorbide Mononitrate (Imdur) 60 mg PO DAILY [facility] Last Admin: 04/15/17 09:59 Dose: 60 mg Levothyroxine Sodium (Synthroid) 112 mcg PO 0600 [facility] Last Admin: 04/15/17 05:48 Dose: 112 mcg Ondansetron HCl (Zofran Inj) 4 mg IVP Q6H PRN PRN Reason: Nausea/Vomiting Last Admin: 04/14/17 06:55 Dose: 4 mg Warfarin Sodium (Coumadin) 2.5 mg PO 1800 [facility] PRN Reason: Protocol - Labs Labs: PT 17.8 SECONDS (9.4-12.5) H 04/14/17 07:00 INR 1.60 (0.93-1.08) H 04/14/17 07:00 APTT 26.3 Seconds (25.1-36.5) 04/12/17 17:14 - Constitutional Appears: Non-toxic, No Acute Distress - Head Exam Head Exam: ATRAUMATIC, NORMAL INSPECTION, NORMOCEPHALIC - Eye Exam Eye Exam: EOMI, PERRL - ENT Exam ENT Exam: Mucous Membranes Moist - Neck Exam Neck Exam: Normal Inspection - Respiratory Exam Respiratory Exam: NORMAL BREATHING PATTERN - Cardiovascular Exam Cardiovascular Exam: REGULAR RHYTHM - GI/Abdominal Exam GI & Abdominal Exam: Soft. absent: Distended, Guarding, Tenderness - Extremities Exam Extremities Exam: Full ROM - Neurological Exam Neurological Exam: Alert, Awake, Oriented x3 - Psychiatric Exam Psychiatric exam: Normal Affect, Normal Mood - Skin Skin Exam: Dry, Intact, Warm Assessment and Plan - Assessment and Plan (Free Text) Assessment: This is a 81yF presenting s/p fall with complaints of nausea, abdominal pain, vomiting and diarrhea. 1. Hx of Lymphocytic colitis 2. Acute Gastroenteritis Plan: -Pt with no further diarrhea, nausea or vomiting, tolerating regular soft diet -No WBC, no fevers, no indication for abx use, supportive care -Continue home dose of Budesonide 6mg daily for maintenance treatment of microscopic colitis -Per GI perspective, pt okay for discharge home <Moris Beck - Last Filed: 04/15/17 12:17> Objective - Vital Signs/Intake and Output Vital Signs (last 24 hours): Temp Pulse Resp BP Pulse Ox 97 F L 53 L 20 146/64 100 04/15/17 07:00 04/15/17 09:58 04/15/17 07:00 04/15/17 09:58 04/15/17 07:00 Intake and Output: 04/15/17 04/15/17 06:59 18:59 Intake Total 180 260 Balance 180 260 - Medications Medications: Current Medications Acetaminophen (Tylenol 325mg Tab) 650 mg PO Q6H PRN PRN Reason: Fever >100.4 F Last Admin: 04/14/17 21:23 Dose: 650 mg Amlodipine Besylate (Norvasc) 5 mg PO DAILY [facility] Last Admin: 04/15/17 09:58 Dose: 5 mg Bacitracin (Bacitracin) 0 gm TOP PRN PRN PRN Reason: Excoriation Last Admin: 04/14/17 17:46 Dose: 1 applic Budesonide (Entocort Ec) 6 mg PO DAILY [facility] Last Admin: 04/15/17 09:56 Dose: 6 mg Famotidine 20 mg/ (Miscellaneous) 50 mls @ 100 mls/hr IVPB DAILY [facility] Last Admin: 04/15/17 09:58 Dose: 100 mls/hr Insulin Human Regular (Humulin R Low) 0 units SC ACHS [facility] PRN Reason: Protocol Last Admin: 04/15/17 11:49 Dose: Not Given Isosorbide Mononitrate (Imdur) 60 mg PO DAILY [facility] Last Admin: 04/15/17 09:59 Dose: 60 mg Levothyroxine Sodium (Synthroid) 112 mcg PO 0600 [facility] Last Admin: 04/15/17 05:48 Dose: 112 mcg Ondansetron HCl (Zofran Inj) 4 mg IVP Q6H PRN PRN Reason: Nausea/Vomiting Last Admin: 04/14/17 06:55 Dose: 4 mg Warfarin Sodium (Coumadin) 2.5 mg PO 1800 [facility] PRN Reason: Protocol - Labs Labs: PT 16.2 SECONDS (9.4-12.5) H 04/15/17 10:45 INR 1.46 (0.93-1.08) H 04/15/17 10:45 APTT 26.3 Seconds (25.1-36.5) 04/12/17 17:14 Attending/Attestation - Attestation I have personally seen and examined this patient.: Yes I have fully participated in the care of the patient.: Yes I have reviewed all pertinent clinical information, including history, physical exam and plan: Yes Notes (Text): 04/15/17 12:17 81 year old female with h/o microscopic colitis admitted after fall. She is stable from a GI standpoint. She denies diarrhea. She is tolerating her diet. She is ok for discharge from my perspective. She should continue her maintenance dose of budesonide 6 mg daily and take immodium as needed.
[2017-04-15 11:50] LABS: INR 1.46 (0.93-1.08)
--- NOTE | 2017-04-16 08:52 | DS ---
HISTORY OF PRESENT ILLNESS: A 81-year-old female admitted to [facility] with a history of nausea, vomiting, and diarrhea for several days and a mechanical form, sustained a trauma to the right frontal eye area. HOSPITAL COURSE: While in the hospital, she was seen by Gastroenterology, Neurology, and Cardiology. She had CAT scans of the head, which showed no acute findings other than evidence of hematoma over the right frontal area this was seen by Surgery as well, local care was provided. She was placed on modified diet and subsequently her bowel movements improved. She was advised by the individual store consultant that she can resume her Coumadin and all of her medications. She was felt to have had a gastroenteritis with mechanical fall and trauma with a past medical history of insulin-dependent diabetes, hypertension, cerebellar ataxia, stroke, paroxysmal atrial fibrillation, cholecystectomy, gastroesophageal reflux with ulcerative colitis, and depression and anxiety. DISCHARGE INSTRUCTIONS: She will be followed as an outpatient and resume her medications. Entocort EC, Celexa, Humulin 70/30 25 units b.i.d., Imdur 60 mg daily, Synthroid 112 mcg daily, meclizine 12.5 mg b.i.d., ranitidine one tablet daily, warfarin 2.5 mg daily, Norvasc 5 mg daily, and clonazepam 0.5 mg daily. She had negative blood cultures, negative stool for C. diff and she was cleared by all individual consultants. She was fully aware of the need to walk with using her walker. She was seen by physical therapy and strongly advised to use her walker. Deena Jones MD
== END 2017-04-15 17:14 | disposition home or self-care (01) | DRG 392 ==
LOC: ED 14:31 → ERH 21:32 → 5RSO 04-13 00:14 → OBSVTOIN 04-14 10:55
PROVIDERS: ADMIT Internal Medicine; ATTEND Internal Medicine
DX: K52.839 Microscopic colitis, unspecified (principal); E11.65 Type 2 diabetes mellitus with hyperglycemia; I31.3 Pericardial effusion (noninflammatory); I48.0 Paroxysmal atrial fibrillation; R16.2 Hepatomegaly with splenomegaly, not elsewhere classified; K51.90 Ulcerative colitis, unspecified, without complications; E86.0 Dehydration; S09.90XA Unspecified injury of head, initial encounter; N28.1 Cyst of kidney, acquired; G11.9 Hereditary ataxia, unspecified; W01.0XXA Fall on same level from slipping, tripping and stumbling without subsequent striking against object, initial encounter; B34.9 Viral infection, unspecified; E03.9 Hypothyroidism, unspecified; E78.5 Hyperlipidemia, unspecified; K52.832 Lymphocytic colitis; K57.90 Diverticulosis of intestine, part unspecified, without perforation or abscess without bleeding; I11.9 Hypertensive heart disease without heart failure; I25.10 Atherosclerotic heart disease of native coronary artery without angina pectoris; I25.2 Old myocardial infarction; I51.7 Cardiomegaly; E87.6 Hypokalemia; K21.9 Gastro-esophageal reflux disease without esophagitis; R29.6 Repeated falls; Z79.01 Long term (current) use of anticoagulants; Z79.4 Long term (current) use of insulin; Z79.899 Other long term (current) drug therapy; Z85.828 Personal history of other malignant neoplasm of skin; Z86.73 Personal history of transient ischemic attack (TIA), and cerebral infarction without residual deficits; Y92.009 Unspecified place in unspecified non-institutional (private) residence as the place of occurrence of the external cause; Y93.01 Activity, walking, marching and hiking; Z87.891 Personal history of nicotine dependence; Z90.49 Acquired absence of other specified parts of digestive tract; Z90.710 Acquired absence of both cervix and uterus; Z95.5 Presence of coronary angioplasty implant and graft; Z98.49 Cataract extraction status, unspecified eye; R26.81 Unsteadiness on feet; Z88.0 Allergy status to penicillin; Z91.018 Allergy to other foods; Z68.34 Body mass index [BMI] 34.0-34.9, adult; R40.2412 Glasgow coma scale score 13-15, at arrival to emergency department

== ENCOUNTER 2017-05-31 23:09 | Emergency (ER) | payer MEDICARE, BC ==
[2017-05-31 23:16] VITALS: BMI 35.1
[2017-05-31 23:23] VITALS: RESP 18; TEMP 98.2
--- NOTE | 2017-06-01 00:51 | ED PDOC ---
Arrival/HPI - General Chief Complaint: Upper Extremity Problem/Injury Time Seen by Provider: 06/01/17 00:05 Historian: Patient - History of Present Illness Narrative History of Present Illness (Text): you have history of paroxysmal atrial fibrillation, cerebral ataxia, stroke, hypertension, anxiety/depression, reflux, ulcerative colitis, were treated in the ED today for left upper extremity numbness which is coming from neck area, and you were otherwise without any trauma/fall/injury/fever/nausea/vomiting/ headache/dizziness/difficulty breathing/chest pain/abdomen pain/numbness/ tingling/loss of limb function/thoughts to harm yourself or others or hallucinations. 06/01/17 02:04 Time/Duration: 24 hours Symptom Onset: Gradual Symptom Course: Intermittent Activities at Onset: Rest Context: Sitting Past Medical History - Provider Review Nursing Documentation Reviewed: Yes - Travel History Have you recently traveled outside [place] w/in the past 3 mons?: No - Infectious Disease Hx of Infectious Diseases: None - Tetanus Immunization Tetanus Immunization: Unknown - Cardiac Hx Cardiac Disorders: Yes Hx Hypertension: Yes - Pulmonary Hx Respiratory Disorders: No - Neurological HX Cerebrovascular Accident: Yes - HEENT Hx HEENT Disorder: Yes Hx Cataracts: Yes (WITH SX) - Renal Hx Renal Disorder: No - Endocrine/Metabolic Hx Diabetes Mellitus Type 2: Yes Hx Hypothyroidism: Yes - Hematological/Oncological Hx Blood Disorders: Yes Hx Shingles: Yes - Integumentary Hx Dermatological Disorder: Yes Hx Eczema: Yes Other/Comment: 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 on radiation therapy - Musculoskeletal/Rheumatological Hx Musculoskeletal Disorders: Yes Hx Falls: Yes Hx Unsteady Gait: Yes (CANE) - Gastrointestinal Hx Gastrointestinal Disorders: Yes (CHOLECYSTECTOMY,APPENDECTOMY,) Hx Gastroesophageal Reflux: Yes - Genitourinary/Gynecological Hx Genitourinary Disorders: No - Psychiatric Hx Psychophysiologic Disorder: Yes Hx Anxiety: Yes Hx Substance Use: No - Surgical History Hx Appendectomy: Yes Hx Cardiac Catheterization: Yes (3 stents) Hx Cholecystectomy: Yes Hx Coronary Stent: Yes Hx Hysterectomy: Yes Other/Comment: TONSILLECTOMY - Anesthesia Hx Anesthesia: Yes Hx Anesthesia Reactions: No Hx Malignant Hyperthermia: No - Suicidal Assessment Feels Threatened In Home Enviroment: No Family/Social History - Physician Review Nursing Documentation Reviewed: Yes Family/Social History: No Known Family HX Smoking Status: Former Smoker Hx Alcohol Use: No Hx Substance Use: No Hx Substance Use Treatment: No Allergies/Home Meds Allergies/Adverse Reactions: Allergies lactose Allergy (Severe, Verified 02/19/17 09:37) DIARRHEA Penicillins Allergy (Severe, Verified 02/19/17 09:37) Epigastric Pain Pork/Porcine Containing Products Allergy (Severe, Verified 02/19/17 09:37) VOMITING Home Medications: Home Meds Medication Instructions Recorded Confirmed Citalopram Hydrobromide [Celexa] 20 mg PO QAM 10/04/15 05/31/17 Insulin Human NPH/Reg [HumuLIN 25 units SC ACBD 10/04/15 05/31/17 70/30 (NPH/Reg)] Isosorbide Mononitrate [Imdur] 60 mg PO QAM 10/04/15 05/31/17 Meclizine HCl [Antivert] 12.5 mg PO BID PRN 10/04/15 05/31/17 Warfarin Sodium [Jantoven] 2.5 mg PO HS 10/04/15 05/31/17 Budesonide [Entocort EC] 2 cap PO DAILY 09/28/16 05/31/17 Levothyroxine [Synthroid] 112 mcg PO DAILY 09/28/16 05/31/17 amLODIPine [Norvasc] 5 mg PO DAILY 09/28/16 05/31/17 clonazePAM [clonAZEPAM] 0.5 mg PO BID 09/29/16 05/31/17 Ranitidine HCl [Acid [employer] App[employer]ice] 1 tab PO DAILY 02/19/17 05/31/17 Review of Systems - Review of Systems Constitutional: Normal Eyes: Normal ENT: Normal Respiratory: Normal Cardiovascular: Normal Gastrointestinal: Normal Genitourinary Female: Normal Musculoskeletal: Normal Skin: Normal Neurological: Other (numbness) Endocrine: Normal Hemo/Lymphatic: Normal Psychiatric: Normal Physical Exam Vital Signs Reviewed: Yes Vital Signs Temp Pulse Resp BP Pulse Ox 06/01/17 03:09 74 18 135/77 99 06/01/17 01:09 75 18 145/82 98 05/31/17 23:18 98.2 F 72 18 149/85 98 Temperature: Afebrile Blood Pressure: Hypertensive Pulse: Regular Respiratory Rate: Normal Appearance: Positive for: Well-Appearing, Non-Toxic, Comfortable Pain Distress: None Mental Status: Positive for: Alert and Oriented X 3 - Systems Exam Head: Present: Atraumatic, Normocephalic Pupils: Present: PERRL Extroacular Muscles: Present: EOMI Conjunctiva: Present: Normal Ears: Present: Normal Mouth: Present: Moist Mucous Membranes Pharnyx: Present: Normal Nose (External): Present: Atraumatic Nose (Internal): Present: Normal Inspection Neck: Present: Normal Range of Motion, Other Respiratory/Chest: Present: Clear to Auscultation, Good Air Exchange Cardiovascular: Present: Regular Rate and Rhythm Abdomen: No: Tenderness, Distention, Normal Bowel Sounds, Peritoneal Signs, Rebound, Guarding, McBurney's Point Tender, Rovsing's Sign Present, Hernias, Feeding Tubes, Ostomy Tubes, Mass/Organomegaly, Scars, Other Back: Present: Normal Inspection, Other (no c-t-l spinal or paraspinal tenderness. no erythema/fluctuance/crepitus.) Upper Extremity: Present: Normal Inspection, Other (LUE warm/pink/sensation/cap refill/radial pulse+. no bony tenderness.) Lower Extremity: Present: Normal Inspection Neurological: Present: GCS=15, CN II-XII Intact, Speech Normal, Motor Func Grossly Intact Skin: Present: Warm, Normal Color Psychiatric: Present: Alert, Oriented x 3, Normal Insight, Normal Concentration Medical Decision Making ED Course and Treatment: you have history of paroxysmal atrial fibrillation, cerebral ataxia, stroke, hypertension, anxiety/depression, reflux, ulcerative colitis, were treated in the ED today for left upper extremity numbness which is coming from neck area, and you were otherwise without any trauma/fall/injury/fever/nausea/vomiting/ headache/dizziness/difficulty breathing/chest pain/abdomen pain/numbness/ tingling/loss of limb function/thoughts to harm yourself or others or hallucinations. you were sitting up, comfortable, alert/oriented, good strength /sensation, no abdomen tenderness, pink skin, Left upper extremity warm/pink/ sensation/cap refill/radial pulse+. no bony spinal tenderness or redness.no fever temp 98.2, stable heart rate 72, stable breathing rate 18, excellent oxygen level 98% room air, elevated blood pressure 149/85 which we recommend followup primary care 2-3 days repeat and determine further treatment, no infection count on blood tests 7.1, stable blood levels hemaglobin/platelet 12.7 /216, stable chemistry test, heart blood test less than 0.01 negative, mildly high blood sugar 194, INR/coumadin level 1.88, radiology ct head no acute bleeding and ct c-spine no acute fracture, ECG normal sinus rhythm/similar to prior, observation done in the ED, counselled to stay in the hospital for further observation/care but you refused and cautioned for complications/ but you stated you will followup Saturday with Dr. Jones your primary care physician, and you went home with your daughter. 1. recommend followup primary care 1-2 days to determine further care, repeat INR to ensure proper dosage of coumadin, referral to cardiology and neurology to review your symptoms, ct head findings of probably chronic infarct, referral to spinal clinic for disc disease /herniation to ensure no complications, referral to endocrine clinic for thyroid calcification to ensure no cancer development. 2. if any worsening pain , fever, chills, nausea, vomiting, any medical condition then return to the ED. 06/01/17 00:52 EXAM: CT Head Without Intravenous Contrast Dictated and Authenticated by: Mckinley Green MD 06/01/2017 2:25 AM IMPRESSION: 1. Nonspecific white matter changes. Acute infarction may be CT occult within first 24 hours. If a focal deficit persists, consider followup CT or MRI for further evaluation. 2. Incidental/non-acute findings are described above. EXAM: CT Cervical Spine Without Intravenous Contrast Dictated and Authenticated by: Mckinley Green MD 06/01/2017 2:49 AM IMPRESSION: 1. No fracture. 2. If symptoms persist, consider MRI for further evaluation. 3. Incidental/non-acute findings are described above. 06/01/17 04:04 06/01/17 04:09 - Lab Interpretations Lab Results: 06/01/17 01:15 06/01/17 01:15 Lab Results 06/01/17 01:15: Sodium 139, Potassium 4.6, Chloride 105, Carbon Dioxide 26, Anion Gap 12, BUN 20, Creatinine 0.8, Est GFR ( Amer) > 60, Est GFR (Non- Af Amer) > 60, Random Glucose 194 H, Calcium 9.9, Magnesium 1.9, Total Bilirubin 0.8, AST 17, ALT 17, Alkaline Phosphatase 131 H, Lactate Dehydrogenase 523, Total Creatine Kinase 52, Troponin I < 0.01 D, Total Protein 6.5, Albumin 3.2, Globulin 3.2, Albumin/Globulin Ratio 1.0 L 06/01/17 01:15: PT 21.7 H, INR 1.88 H, APTT 36.6 H 06/01/17 01:15: WBC 7.1 D, RBC 4.10, Hgb 12.7, Hct 39.2, MCV 95.6, MCH 31.0, MCHC 32.4, RDW 14.0, Plt Count 216, MPV 11.8 H, Gran % 69.6 H, Lymph % (Auto) 20.9 L, [place] % (Auto) 7.3 H, Eos % (Auto) 2.1, Baso % (Auto) 0.1, Gran # 4.96, Lymph # (Auto) 1.5, [place] # (Auto) 0.5, Eos # (Auto) 0.2, Baso # (Auto) 0.01 I have reviewed the lab results: Yes - RAD Interpretation Radiology Orders: 06/01/17 00:45 HEAD W/O CONTRAST [CT] Stat 06/01/17 00:46 CERVICAL SPINE W/O CONTRAST [CT] Stat Client Support Administrator: Radiologist - EKG Interpretation Interpreted by ED Physician: Yes (NSR) Type: 12 lead EKG Comparison: Similar to previous EKG (04/12/17) NIHSS Stroke Scale 3 - Date/Time Evaluation Performed Date Performed: 06/01/17 - How Severe is the Stroke Level of Consciousness: 0=Alert LOC to Questions: 0=Both comments correct LOC to commands: 0=Obeys both correctly Best Gaze: 0=Normal Visual: 0=No visual loss Facial: 0=Normal Motor Arm - Left: 0=No drift Motor Arm - Right: 0=No drift Motor Leg - Left: 0=No drift Motor Leg - Right: 0=No drift Limb Ataxia: 0=Absent Sensory: 0=Normal Best Language: 0=No aphasia Dysarthia: 0=Normal articulation Extinction & Inattention (Neglect): 0=Normal, no object Score: 0 Severity Of Stroke: 0 = No Stroke Disposition/Present on Arrival - Present on Arrival Any Indicators Present on Arrival: No History of DVT/PE: No History of Uncontrolled Diabetes: No Urinary Catheter: No History of Decub. Ulcer: No History Surgical Site Infection Following: None - Disposition Have Diagnosis and Disposition been Completed?: Yes Diagnosis: Numbness Disposition: AGAINST MEDICAL ADVICE Disposition Time: 04:12 Patient Plan: Discharge Condition: IMPROVED Additional Instructions: you have history of paroxysmal atrial fibrillation, cerebral ataxia, stroke, hypertension, anxiety/depression, reflux, ulcerative colitis, were treated in the ED today for left upper extremity numbness which is coming from neck area, and you were otherwise without any trauma/fall/injury/fever/nausea/vomiting/ headache/dizziness/difficulty breathing/chest pain/abdomen pain/numbness/ tingling/loss of limb function/thoughts to harm yourself or others or hallucinations. you were sitting up, comfortable, alert/oriented, good strength /sensation, no abdomen tenderness, pink skin, Left upper extremity warm/pink/ sensation/cap refill/radial pulse+. no bony spinal tenderness or redness.no fever temp 98.2, stable heart rate 72, stable breathing rate 18, excellent oxygen level 98% room air, elevated blood pressure 149/85 which we recommend followup primary care 2-3 days repeat and determine further treatment, no infection count on blood tests 7.1, stable blood levels hemaglobin/platelet 12.7 /216, stable chemistry test, heart blood test less than 0.01 negative, mildly high blood sugar 194, INR/coumadin level 1.88, radiology ct head no acute bleeding and ct c-spine no acute fracture, ECG normal sinus rhythm/similar to prior, observation done in the ED, counselled to stay in the hospital for further observation/care but you refused and cautioned for complications/ but you stated you will followup Saturday with Dr. Jones your primary care physician, and you went home with your daughter. 1. recommend followup primary care 1-2 days to determine further care, repeat INR to ensure proper dosage of coumadin, referral to cardiology and neurology to review your symptoms, ct head findings of probably chronic infarct, referral to spinal clinic for disc disease /herniation to ensure no complications, referral to endocrine clinic for thyroid calcification to ensure no cancer development. 2. if any worsening pain , fever, chills, nausea, vomiting, any medical condition then return to the ED. Referrals: Deena Jones MD [Primary Care Provider] - Follow up with primary Forms: [employer] ([place])
[2017-06-01 01:25] LABS: BASO # 0.01 K/mm3 (0.0-2.0); BASO % 0.1 % (0.0-3.0); EOS # 0.2 (0.0-0.7); EOS % 2.1 % (1.5-5.0); GRAN # 4.96 (1.4-6.5); GRAN % 69.6 % (50.0-68.0); HEMOGLOBIN 12.7 g/dL (12.0-16.0); LYMPH # 1.5 (1.2-3.4); LYMPH % 20.9 % (22.0-35.0); MEAN CELL VOLUME 95.6 fl (80.0-105.0); MEAN CORPUSCULAR HGB CONC 32.4 g/dl (31.0-37.0); MEAN PLATELET VOLUME 11.8 fl (7.0-11.0); MONO # 0.5 (0.1-0.6); MONO % 7.3 % (1.0-6.0); RBC 4.1 10^6/uL (3.5-6.1); WHITE BLOOD COUNT 7.1 10^3/ul (4.5-11.0)
[2017-06-01 01:34] LABS: ALBUMIN 3.2 g/dL (3.0-4.8); CALCIUM 9.9 mg/dL (8.4-10.5); GFR AFRICAN-AMERICAN > 60; GFR NON-AFRICAN AMERICAN > 60
[2017-06-01 01:38] LABS: INR 1.88 (0.93-1.08); PARTIAL THROMBOPLASTIN TIME 36.6 Seconds (25.1-36.5); PROTHROMBIN TIME 21.7 SECONDS (9.4-12.5)
[2017-06-01 01:44] LABS: TROPONIN I < 0.01 ng/mL
[2017-06-01 01:48] LABS: ALT/SGPT 17 U/L (7-56); AST/SGOT 17 U/L (14-36); BLOOD UREA NITROGEN 20 mg/dL (7-21); MAGNESIUM 1.9 mg/dL (1.7-2.2)
--- NOTE | 2017-06-01 02:25 | CT ---
EXAM: CT Head Without Intravenous Contrast CLINICAL HISTORY: 81 years old, female; Signs and symptoms; Syncope and collapse; Additional info: 81yof, with lue numbness TECHNIQUE: Axial computed tomography images of the head/brain without intravenous contrast. All CT scans at this facility use one or more dose reduction techniques, viz.: automated exposure control; ma/kV adjustment per patient size (including targeted exams where dose is matched to indication; i.e. head); or iterative reconstruction technique. Coronal and sagittal reformatted images were created and reviewed. COMPARISON: CT - HEAD W/O CONTRAST 2017-04-14 14:00 FINDINGS: Brain: Moderate atrophy. No intracranial hemorrhage. No mass. Few scattered foci of decreased attenuation within periventricular/subcortical white matter. Probable chronic lacunar infarct about RIGHT basal ganglia/internal capsule, left thalamus. No definite edema. Ventricles: No hydrocephalus. Bones/joints: No acute fracture. Soft tissues: Unremarkable. Vasculature: Atherosclerotic disease of intracranial arteries. Sinuses: Scattered minimal mucosal thickening. Mastoid air cells: No mastoid effusion. Orbits: Unremarkable as visualized. IMPRESSION: 1. Nonspecific white matter changes. Acute infarction may be CT occult within first 24 hours. If a focal deficit persists, consider followup CT or MRI for further evaluation. 2. Incidental/non-acute findings are described above.
--- NOTE | 2017-06-01 02:49 | CT ---
EXAM: CT Cervical Spine Without Intravenous Contrast CLINICAL HISTORY: 81 years old, female; Pain; Neck pain; Additional info: 81yof, left upper extremity numbness TECHNIQUE: Axial computed tomography images of the cervical spine without intravenous contrast. All CT scans at this facility use one or more dose reduction techniques, viz.: automated exposure control; ma/kV adjustment per patient size (including targeted exams where dose is matched to indication; i.e. head); or iterative reconstruction technique. Coronal and sagittal reformatted images were created and reviewed. COMPARISON: No relevant prior studies available. FINDINGS: Vertebrae: No acute fracture. Straightening of cervical spine. Discs/spinal canal/neural foramina: Mild degenerative disc disease at C4-C5, C6-C7 levels. Moderate to severe degenerative disease at C5-C6 level. Disc herniation at C5-C6 level, suboptimally evaluated. Mild indentation thecal sac/cord at C5-C6 level. Soft tissues: Unremarkable. Vasculature: Mild atherosclerotic disease. Sinuses: Minimal mucosal thickening of maxillary sinuses. Few small maxillary retention cysts. Dental: Periapical lucency compatible with dental disease. Thyroid: Small calcification within right lobe. Lung apices: Minimal atelectasis/scarring. IMPRESSION: 1. No fracture. 2. If symptoms persist, consider MRI for further evaluation. 3. Incidental/non-acute findings are described above.
[2017-06-01 05:23] VITALS: BP 130/71; PULSE 77; O2SAT 98
--- NOTE | 2017-06-01 16:43 | CARD ---
APPROVED REPORT EKG Measurement Heart [id number] <Conclusion> Normal sinus rhythm Left anterior fascicular block Abnormal ECG
== END 2017-06-01 04:20 | disposition left against medical advice (07) ==
LOC: ED 23:09
DX: R20.2 Paresthesia of skin (principal); I10 Essential (primary) hypertension; I48.0 Paroxysmal atrial fibrillation; E11.9 Type 2 diabetes mellitus without complications; Z86.73 Personal history of transient ischemic attack (TIA), and cerebral infarction without residual deficits; Z87.891 Personal history of nicotine dependence

== ENCOUNTER 2017-07-30 15:01 | Emergency (ER) | payer MEDICARE, BC ==
[2017-07-30 15:03] VITALS: BMI 34.0
[2017-07-30] MEDS ORDERED: Sodium Chloride 0.9% 500 ML IV STA (15:21)
[2017-07-30 15:45] VITALS: BP 141/72; PULSE 60; RESP 16; TEMP 97.9; O2SAT 96
[2017-07-30 15:46] LABS: BASO # 0.02 K/mm3 (0.0-2.0); BASO % 0.3 % (0.0-3.0); EOS # 0.2 (0.0-0.7); EOS % 2.2 % (1.5-5.0); GRAN # 5.25 (1.4-6.5); GRAN % 71.3 % (50.0-68.0); HEMOGLOBIN 13.4 g/dL (12.0-16.0); LYMPH # 1.2 (1.2-3.4); LYMPH % 16.7 % (22.0-35.0); MEAN CELL VOLUME 92.4 fl (80.0-105.0); MEAN CORPUSCULAR HEMOGLOBIN 30.7 pg (25.0-35.0); MEAN CORPUSCULAR HGB CONC 33.2 g/dl (31.0-37.0); MEAN PLATELET VOLUME 11.6 fl (7.0-11.0); MONO # 0.7 (0.1-0.6); MONO % 9.5 % (1.0-6.0); RBC 4.37 10^6/uL (3.5-6.1); RED CELL DISTRIBUTION WIDTH 13.3 % (11.5-14.5); WHITE BLOOD COUNT 7.4 10^3/ul (4.5-11.0)
[2017-07-30 15:58] LABS: ALBUMIN 3.3 g/dL (3.0-4.8); ALT/SGPT 20 U/L (7-56); AST/SGOT 12 U/L (14-36); BLOOD UREA NITROGEN 19 mg/dL (7-21); CALCIUM 10.9 mg/dL (8.4-10.5); GFR AFRICAN-AMERICAN > 60; GFR NON-AFRICAN AMERICAN > 60; INR 1.7 (0.93-1.08); PARTIAL THROMBOPLASTIN TIME 37.6 Seconds (25.1-36.5); PROTHROMBIN TIME 19.6 SECONDS (9.4-12.5)
[2017-07-30 16:09] LABS: B-TYPE NATRIURETIC PEPTIDE 110 pg/mL (0-450); TROPONIN I < 0.01 ng/mL
--- NOTE | 2017-07-30 16:33 | CT ---
PROCEDURE: CT HEAD WITHOUT CONTRAST. HISTORY: dizziness COMPARISON: 06/01/2017 TECHNIQUE: Axial computed tomography images were obtained through the head/brain without intravenous contrast. Radiation dose: Total exam DLP = 835 mGy-cm. This CT exam was performed using one or more of the following dose reduction techniques: Automated exposure control, adjustment of the mA and/or kV according to patient size, and/or use of iterative reconstruction technique. FINDINGS: HEMORRHAGE: No intracranial hemorrhage. BRAIN: No mass effect or edema. No atrophy or chronic microvascular ischemic changes. VENTRICLES: Unremarkable. No hydrocephalus. CALVARIUM: Unremarkable. PARANASAL SINUSES: Unremarkable as visualized. No significant inflammatory changes. MASTOID AIR CELLS: Unremarkable as visualized. No inflammatory changes. OTHER FINDINGS: None. IMPRESSION: Negative study
--- NOTE | 2017-07-30 16:35 | RAD ---
HISTORY: dizziness COMPARISON: 12/13/2016 FINDINGS: LUNGS: No active pulmonary disease. PLEURA: No significant pleural effusion identified, no pneumothorax apparent. CARDIOVASCULAR: Mild cardiomegaly OSSEOUS STRUCTURES: No significant abnormalities. VISUALIZED UPPER ABDOMEN: Normal. OTHER FINDINGS: None. IMPRESSION: No active disease.
[2017-07-30 17:55] LABS: PH,URINE 6.5 (4.7-8.0); URINE BILIRUBIN NEGATIVE (NEGATIVE); URINE BLOOD NEGATIVE (NEGATIVE); URINE GLUCOSE (UA) NEGATIVE (NEGATIVE); URINE LEUKOCYTE ESTERASE NEGATIVE Leu/uL (NEGATIVE); URINE PROTEIN NEGATIVE mg/dL (<30 mg/dL); URINE UROBILINOGEN 0.2 E.U./dL (<1 E.U./dL)
[2017-07-30 17:56] LABS: URINE APPEARANCE CLEAR (CLEAR); URINE COLOR COLORLESS (YELLOW)
--- NOTE | 2017-07-30 18:04 | ED PDOC ---
Arrival/HPI - General Chief Complaint: Dizziness/Lightheaded Time Seen by Provider: 07/30/17 15:17 Historian: Patient - History of Present Illness Narrative History of Present Illness (Text): 07/30/17 15:12 A 81 year old female, whose past medical history includes Atrial Fibrillation, diabetes, hydrothyroidism, chronic vertigo, hypertension, chronic IBS and diarrhea, and anxiety, brought in by ambulance, presents to the emergency department for evaluation of right nare. Patient reports having visited ENT for follow-up of right nare epistaxis. Once ENT cauterized right nare, patient suddenly became pallid and dizzy, with decreased responsiveness. ENT used noxious fumes to rouse patient. Afterwards had an episode of diarrhea, no mucoid , non-bloody, non-melanic. Last fingerstick reading was 100. patient recently was admitted for diarrhea, dehydration, and head trauma 04/15. Subsequently had brain MRI [id number] on 06/17/17, which was negative. Patient currently asymptomatic. No PMD Past Medical History - Provider Review Nursing Documentation Reviewed: Yes - Infectious Disease Hx of Infectious Diseases: None - Tetanus Immunization Tetanus Immunization: Unknown - Reproductive Menopause: Yes - Cardiac Hx Cardiac Disorders: Yes Hx Hypertension: Yes - Pulmonary Hx Respiratory Disorders: No - Neurological HX Cerebrovascular Accident: Yes - HEENT Hx HEENT Disorder: Yes Hx Cataracts: Yes (WITH SX) - Renal Hx Renal Disorder: No - Endocrine/Metabolic Hx Diabetes Mellitus Type 2: Yes Hx Hypothyroidism: Yes - Hematological/Oncological Hx Blood Disorders: Yes Hx Shingles: Yes - Integumentary Hx Dermatological Disorder: Yes Hx Eczema: Yes Other/Comment: 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 on radiation therapy - Musculoskeletal/Rheumatological Hx Musculoskeletal Disorders: Yes Hx Falls: Yes Hx Unsteady Gait: Yes (CANE) - Gastrointestinal Hx Gastrointestinal Disorders: Yes (CHOLECYSTECTOMY,APPENDECTOMY,) Hx Gastroesophageal Reflux: Yes - Genitourinary/Gynecological Hx Genitourinary Disorders: No - Psychiatric Hx Psychophysiologic Disorder: Yes Hx Anxiety: Yes Hx Substance Use: No - Surgical History Hx Appendectomy: Yes Hx Cardiac Catheterization: Yes (3 stents) Hx Cholecystectomy: Yes Hx Coronary Stent: Yes Hx Hysterectomy: Yes Other/Comment: TONSILLECTOMY - Anesthesia Hx Anesthesia: Yes Hx Anesthesia Reactions: No Hx Malignant Hyperthermia: No - Suicidal Assessment Feels Threatened In Home Enviroment: No Family/Social History - Physician Review Nursing Documentation Reviewed: Yes Family/Social History: No Known Family HX Smoking Status: Former Smoker Hx Alcohol Use: No Hx Substance Use: No Hx Substance Use Treatment: No Allergies/Home Meds Allergies/Adverse Reactions: Allergies lactose Allergy (Severe, Verified 02/19/17 09:37) DIARRHEA Penicillins Allergy (Severe, Verified 02/19/17 09:37) Epigastric Pain Pork/Porcine Containing Products Allergy (Severe, Verified 02/19/17 09:37) VOMITING Home Medications: Home Meds Medication Instructions Recorded Confirmed Citalopram Hydrobromide [Celexa] 20 mg PO QAM 10/04/15 07/30/17 Insulin Human NPH/Reg [HumuLIN 25 units SC ACBD 10/04/15 07/30/17 70/30 (NPH/Reg)] Isosorbide Mononitrate [Imdur] 60 mg PO QAM 10/04/15 07/30/17 Warfarin Sodium [Jantoven] 2.5 mg PO HS 10/04/15 07/30/17 Budesonide [Entocort EC] 2 cap PO DAILY 09/28/16 07/30/17 Levothyroxine [Synthroid] 112 mcg PO DAILY 09/28/16 07/30/17 amLODIPine [Norvasc] 5 mg PO DAILY 09/28/16 07/30/17 clonazePAM [clonAZEPAM] 0.5 mg PO BID 09/29/16 07/30/17 Review of Systems - Physician Review All systems were reviewed & negative as marked: Yes - Review of Systems Gastrointestinal: Diarrhea Neurological: Dizziness Physical Exam Vital Signs Reviewed: Yes Vital Signs Temp Pulse Resp BP Pulse Ox 07/30/17 15:01 97.9 F 60 16 141/72 96 Temperature: Afebrile Blood Pressure: Normal Pulse: Regular Respiratory Rate: Normal Appearance: Positive for: Other (patient is mildly obese) Pain Distress: None Mental Status: Positive for: Alert and Oriented X 3 Finger Stick Blood Glucose: 162 - Systems Exam Mouth: Present: Moist Mucous Membranes Respiratory/Chest: Present: Clear to Auscultation, Good Air Exchange. No: Respiratory Distress, Accessory Muscle Use Cardiovascular: Present: Irregular Rhythm Abdomen: No: Tenderness, Distention, Peritoneal Signs Lower Extremity: Present: Edema (trace edema b/l) Neurological: Present: GCS=15, CN II-XII Intact, Speech Normal Skin: Present: Warm, Dry, Normal Color. No: Rashes Psychiatric: Present: Alert, Oriented x 3, Normal Insight, Normal Concentration Medical Decision Making ED Course and Treatment: 07/30/17 15:17 Impression: 81 year old female here for evaluation. Physical exam shows irregular rhythm; trace edema b/l. Plan: -- EKG -- Head CT -- Chest X-ray -- Urinalysis -- IV Fluids -- Labs -- Reassess and disposition Progress Notes: EKG: Ordered, reviewed, and independently interpreted the EKG. Rate : 56 BPM Rhythm : Sinus bradycardia Interpretation : No ST-segment elevations or depressions, no T-wave inversions, Occasional PVCs, (+) LAFB. Comparison : No previous EKG for comparison. 07/30/17 19:30 pt with normal laboratory, resultation/ imaging wnl and adamant about discharge home. Pt. with recent normal MRI on 06/19/17 , given no ash loc, accompanying fecal incontinence, and then immediate ambulation after event, sharp mental and ambulatory status in Emergency department, recent negative cardiological testing pt will be discharged for follow up with Dr. Jones on upcoming 08/01/17. Dr. Jones in concord with the plan and advised pt to skip 2 days of coumadin meanwhile to avoid any further epistaxis. - Lab Interpretations Lab Results: 07/30/17 15:40 07/30/17 15:40 Lab Results 07/30/17 17:25: Urine Color Colorless, Urine Appearance Clear, Urine pH 6.5, Ur Specific [place] <= 1.005, Urine Protein Negative, Urine Glucose (UA) Negative, Urine Ketones Negative, Urine Blood Negative, Urine Nitrate Negative, Urine Bilirubin Negative, Urine Urobilinogen 0.2, Ur Leukocyte Esterase Negative 07/30/17 15:40: PT 19.6 H, INR 1.70 H, APTT 37.6 H 07/30/17 15:40: Sodium 138, Potassium 3.9, Chloride 103, Carbon Dioxide 28, Anion Gap 10, BUN 19, Creatinine 0.9, Est GFR ( Amer) > 60, Est GFR (Non- Af Amer) > 60, Random Glucose 173 H, Calcium 10.9 H, Magnesium 1.8, Total Bilirubin 1.2, AST 12 L D, ALT 20, Alkaline Phosphatase 132 H, Lactate Dehydrogenase 394, Total Creatine Kinase 37, Troponin I < 0.01, NT-Pro-B Natriuret Pep 110, Total Protein 6.7, Albumin 3.3, Globulin 3.3, Albumin/ Globulin Ratio 1.0 L 07/30/17 15:40: WBC 7.4, RBC 4.37, Hgb 13.4, Hct 40.4, MCV 92.4 D, MCH 30.7, MCHC 33.2, RDW 13.3, Plt Count 194, MPV 11.6 H, Gran % 71.3 H, Lymph % (Auto) 16.7 L, [place] % (Auto) 9.5 H, Eos % (Auto) 2.2, Baso % (Auto) 0.3, Gran # 5.25, Lymph # (Auto) 1.2, [place] # (Auto) 0.7 H, Eos # (Auto) 0.2, Baso # (Auto) 0.02 07/30/17 15:21: POC Glucose (mg/dL) 162 H - RAD Interpretation Radiology Orders: 07/30/17 15:18 CHEST PORTABLE [RAD] Stat 07/30/17 15:20 HEAD W/O CONTRAST [CT] Stat - Medication Orders Current Medication Orders: Discontinued Medications Sodium Chloride (Sodium Chloride 0.9%) 500 mls @ 999 mls/hr IV .Q31M STA Stop: 07/30/17 15:51 Last Admin: 07/30/17 15:44 Dose: 999 mls/hr eMAR Start Stop Document 07/30/17 15:44 SRE (Rec: 07/30/17 15:44 SRE [id number]) Intravenous Solution Start Date 07/30/17 Start Time 15:44 End Date 07/30/17 End time 16:20 Total Infusion Time 36 - Scribe Statement The provider has reviewed the documentation as recorded by the Cyn Mehta Provider Scribe Attestation: All medical record entries made by the Scribe were at my direction and personally dictated by me. I have reviewed the chart and agree that the record accurately reflects my personal performance of the history, physical exam, medical decision making, and the department course for this patient. I have also personally directed, reviewed, and agree with the discharge instructions and disposition. Disposition/Present on Arrival - Present on Arrival Any Indicators Present on Arrival: No History of DVT/PE: No History of Uncontrolled Diabetes: No Urinary Catheter: No History of Decub. Ulcer: No History Surgical Site Infection Following: None - Disposition Have Diagnosis and Disposition been Completed?: Yes Diagnosis: Vasovagal near syncope Disposition: HOME/ ROUTINE Disposition Time: 19:34 Patient Plan: Discharge Condition: GOOD Discharge Instructions (ExitCare): Vasovagal Response (DC), Near Fainting (DC) Print Language: [place] Additional Instructions: Please skip the tonight and tomorrow's coumadin and follow up with Dr. Jones on 08/01/17. Return for any worsening symptoms . Resume all other regular medical mgmt. Referrals: Galileo Ugarte, [Primary Care Provider] - Follow up with primary Forms: [employer] (Bel[place]ian)
--- NOTE | 2017-07-31 07:28 | CARD ---
APPROVED REPORT EKG Measurement Heart [id number] <Conclusion> Sinus bradycardia with occasional premature ventricular complexes Left anterior fascicular block PRWP Nonspecific T wave abnormality
== END 2017-07-30 19:47 | disposition home or self-care (01) ==
LOC: ED 15:01
DX: R55 Syncope and collapse (principal); I10 Essential (primary) hypertension; I48.91 Unspecified atrial fibrillation; E11.9 Type 2 diabetes mellitus without complications; Z86.73 Personal history of transient ischemic attack (TIA), and cerebral infarction without residual deficits; Z87.891 Personal history of nicotine dependence
CPT/HCPCS: 70450; 71045; 80053; 81003; 82550; 82948; 83615; 83735; 83880; 84484; 85025; 85610; 85730; 93005; 96360; 99285; J7040

== ENCOUNTER 2017-12-16 10:16 | Emergency (ER) | payer MEDICARE, BC ==
[2017-12-16 10:37] VITALS: BMI 33.6
--- NOTE | 2017-12-16 10:41 | ED PDOC ---
Arrival/HPI - General Time Seen by Provider: 12/16/17 10:18 Historian: Patient - History of Present Illness Narrative History of Present Illness (Text): 12/16/17 10:37 82yo female with pmhx of Afib, CAD s/p 3stents, Diabetes, hypertension bib EMS for complaint neck and lower back pain s/p trauma this morning. states she fell , landed on her knees and when she tried to sit up, she fell back wards landing on her buttocks and hit her neck and back on tires. She denies pain on her knees , states pain is localized on her neck and back. she is on anticoagulant. denies LOC, nausea, focal weakness, urinary/fecal incontinence, visual changes, any other complaint. Past Medical History - Provider Review Nursing Documentation Reviewed: Yes - Infectious Disease Hx of Infectious Diseases: None - Tetanus Immunization Tetanus Immunization: Unknown - Cardiac Hx Cardiac Disorders: Yes Hx Hypertension: Yes - Pulmonary Hx Respiratory Disorders: No - Neurological HX Cerebrovascular Accident: Yes - HEENT Hx HEENT Disorder: Yes Hx Cataracts: Yes (WITH SX) - Renal Hx Renal Disorder: No - Endocrine/Metabolic Hx Diabetes Mellitus Type 2: Yes Hx Hypothyroidism: Yes - Hematological/Oncological Hx Blood Disorders: Yes Hx Shingles: Yes - Integumentary Hx Dermatological Disorder: Yes Hx Eczema: Yes Other/Comment: 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 on radiation therapy - Musculoskeletal/Rheumatological Hx Musculoskeletal Disorders: Yes Hx Falls: Yes Hx Unsteady Gait: Yes (CANE) - Gastrointestinal Hx Gastrointestinal Disorders: Yes (CHOLECYSTECTOMY,APPENDECTOMY,) Hx Gastroesophageal Reflux: Yes - Genitourinary/Gynecological Hx Genitourinary Disorders: No - Psychiatric Hx Psychophysiologic Disorder: Yes Hx Anxiety: Yes Hx Substance Use: No - Surgical History Hx Appendectomy: Yes Hx Cardiac Catheterization: Yes (3 stents) Hx Cholecystectomy: Yes Hx Coronary Stent: Yes Hx Hysterectomy: Yes Other/Comment: TONSILLECTOMY - Anesthesia Hx Anesthesia: Yes Hx Anesthesia Reactions: No Hx Malignant Hyperthermia: No - Suicidal Assessment Feels Threatened In Home Enviroment: No Family/Social History - Physician Review Nursing Documentation Reviewed: Yes Family/Social History: Unknown Family HX Smoking Status: Former Smoker Hx Alcohol Use: No Hx Substance Use: No Hx Substance Use Treatment: No Allergies/Home Meds Allergies/Adverse Reactions: Allergies lactose Allergy (Severe, Verified 02/19/17 09:37) DIARRHEA Penicillins Allergy (Severe, Verified 02/19/17 09:37) Epigastric Pain Pork/Porcine Containing Products Allergy (Severe, Verified 02/19/17 09:37) VOMITING Home Medications: Home Meds Medication Instructions Recorded Confirmed Citalopram Hydrobromide [Celexa] 20 mg PO QAM 10/04/15 07/30/17 Insulin Human NPH/Reg [HumuLIN 25 units SC ACBD 10/04/15 07/30/17 70/30 (NPH/Reg)] Isosorbide Mononitrate [Imdur] 60 mg PO QAM 10/04/15 07/30/17 Warfarin Sodium [Jantoven] 2.5 mg PO HS 10/04/15 07/30/17 Budesonide [Entocort EC] 2 cap PO DAILY 09/28/16 07/30/17 Levothyroxine [Synthroid] 112 mcg PO DAILY 09/28/16 07/30/17 amLODIPine [Norvasc] 5 mg PO DAILY 09/28/16 07/30/17 clonazePAM [clonAZEPAM] 0.5 mg PO BID 09/29/16 07/30/17 Review of Systems - Physician Review All systems were reviewed & negative as marked: Yes - Review of Systems Constitutional: Normal Eyes: Normal ENT: Normal Respiratory: Normal Cardiovascular: Normal Gastrointestinal: Normal Genitourinary Female: Normal Musculoskeletal: Back Pain, Neck Pain Skin: Normal Neurological: Normal Endocrine: Normal Hemo/Lymphatic: Normal Psychiatric: Normal Physical Exam Vital Signs Reviewed: Yes Vital Signs Temp Pulse Resp BP Pulse Ox 12/16/17 13:19 98.2 F 70 18 147/79 98 12/16/17 10:37 98.3 F 63 18 160/90 H 98 Temperature: Afebrile Blood Pressure: Normal Pulse: Regular Respiratory Rate: Normal Appearance: Positive for: Well-Appearing, Non-Toxic, Comfortable Pain Distress: None Mental Status: Positive for: Alert and Oriented X 3 - Systems Exam Head: Present: Atraumatic, Normocephalic Pupils: Present: PERRL Extroacular Muscles: Present: EOMI Conjunctiva: Present: Normal Mouth: Present: Moist Mucous Membranes Neck: Present: Normal Range of Motion, Paraspinal Tenderness (Mild b/l paratenderness). No: MIDLINE TENDERNESS Respiratory/Chest: Present: Clear to Auscultation, Good Air Exchange. No: Respiratory Distress, Accessory Muscle Use Cardiovascular: Present: Regular Rate and Rhythm, Normal S1, S2. No: Murmurs Abdomen: No: Tenderness, Distention, Peritoneal Signs Back: Present: Paraspinal Tenderness (right paralumbar tenderness). No: Midline Tenderness, Pain with Leg Raise Upper Extremity: Present: Normal Inspection. No: Cyanosis, Edema Lower Extremity: Present: Normal Inspection. No: Edema Neurological: Present: GCS=15, CN II-XII Intact, Speech Normal Skin: Present: Warm, Dry, Normal Color. No: Rashes Psychiatric: Present: Alert, Oriented x 3, Normal Insight, Normal Concentration Medical Decision Making ED Course and Treatment: 12/16/17 20:03 82yo female presented for neck and back pain s/p trauma. 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 She was DC home with Tramadol. she was ambulatory and neurologically intact in ED. - RAD Interpretation Radiology Orders: 12/16/17 10:36 CERVICAL SPINE >18YR W/OBLIQUE [RAD] Stat 12/16/17 10:37 HEAD W/O CONTRAST [CT] Stat LS SPINE WITH OBL > 18 YRS OLD [RAD] Stat - Medication Orders Current Medication Orders: Discontinued Medications Acetaminophen (Tylenol 325mg Tab) 650 mg PO STAT STA Stop: 12/16/17 11:42 Last Admin: 12/16/17 11:43 Dose: 650 mg MAR Pain/Vitals Document 12/16/17 11:43 FL (Rec: 12/16/17 11:45 FL [id number]) Pain Reassessment Is This A Pain ReAssessment? No Sleep Is patient sleeping during reassessment? No Presence of Pain Presence of Pain Yes Location Left, Right or Bilateral Left Pain Location Body Site Knee Disposition/Present on Arrival - Present on Arrival Any Indicators Present on Arrival: No History of DVT/PE: No History of Uncontrolled Diabetes: No Urinary Catheter: No History Surgical Site Infection Following: None - Disposition Have Diagnosis and Disposition been Completed?: Yes Diagnosis: Back pain, Cervical sprain, Fall Disposition: HOME/ ROUTINE Disposition Time: 12:30 Patient Plan: Discharge Condition: STABLE Discharge Instructions (ExitCare): Low Back Pain (DC), Cervical Muscle Strain (DC) Additional Instructions: Apply warm compress/shower to area Follow up with your doctor Return to Ed for any new or worsening symptoms Prescriptions: traMADol [Ultram] 50 mg PO TID #10 tab Referrals: Teresa Villareal MD [Medical Doctor] - Follow up with primary Forms: [employer] (Pashto)
[2017-12-16 10:42] VITALS: RESP 18; O2SAT 98
--- NOTE | 2017-12-16 11:25 | CT ---
Date of service: 12/16/2017 PROCEDURE: CT HEAD WITHOUT CONTRAST. HISTORY: s/p head injury COMPARISON: None available. TECHNIQUE: Axial computed tomography images were obtained through the head/brain without intravenous contrast. Radiation dose: Total exam DLP = 921 mGy-cm. This CT exam was performed using one or more of the following dose reduction techniques: Automated exposure control, adjustment of the mA and/or kV according to patient size, and/or use of iterative reconstruction technique. FINDINGS: HEMORRHAGE: No intracranial hemorrhage. BRAIN: No mass effect or edema. Moderate atrophy VENTRICLES: Unremarkable. No hydrocephalus. CALVARIUM: Unremarkable. PARANASAL SINUSES: Unremarkable as visualized. No significant inflammatory changes. MASTOID AIR CELLS: Unremarkable as visualized. No inflammatory changes. OTHER FINDINGS: None. IMPRESSION: No acute intracranial findings
--- NOTE | 2017-12-16 13:03 | RAD ---
Date of service: 12/16/2017 PROCEDURE: Cervical Spine Radiographs. HISTORY: Pain. COMPARISON: None. FINDINGS: BONES: Alignment maintained. No fracture. Dens Intact. DISC SPACES: There is disc degeneration at C5-6 SOFT TISSUES: Normal. No prevertebral soft tissue swelling. OTHER FINDINGS: None. IMPRESSION: Disc degeneration at C5-6
--- NOTE | 2017-12-16 13:05 | RAD ---
Date of service: 12/16/2017 PROCEDURE: Radiographs of the Lumbar Spine. HISTORY: back pain s/p trauma COMPARISON: No prior. FINDINGS: BONES: Normal alignment. No listhesis. No fracture. DISC SPACES: Unremarkable. 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
[2017-12-16 13:22] VITALS: BP 147/79; PULSE 70; TEMP 98.2
== END 2017-12-16 13:19 | disposition home or self-care (01) ==
LOC: ED 10:16
DX: M54.5 Low back pain (principal); S13.4XXA Sprain of ligaments of cervical spine, initial encounter; W19.XXXA Unspecified fall, initial encounter; I48.91 Unspecified atrial fibrillation; I25.10 Atherosclerotic heart disease of native coronary artery without angina pectoris; I10 Essential (primary) hypertension; E11.9 Type 2 diabetes mellitus without complications; E03.9 Hypothyroidism, unspecified; Z87.891 Personal history of nicotine dependence; Z86.73 Personal history of transient ischemic attack (TIA), and cerebral infarction without residual deficits

== ENCOUNTER 2018-02-12 18:55 | Emergency (ER) | payer MEDICARE, BC ==
[2018-02-12 19:04] VITALS: BMI 34.5
[2018-02-12 19:11] VITALS: RESP 18; TEMP 98.2; O2SAT 95
[2018-02-12] MEDS ORDERED: Lidocaine 1%/Epinephrine 1:100000 30 ml vial IJ STA (19:38)
--- NOTE | 2018-02-12 19:49 | ED PDOC ---
Arrival/HPI - General Historian: Patient - History of Present Illness Narrative History of Present Illness (Text): 02/12/18 19:49 patient is a 82 year old female who presents to the Emergency department complaining of lower extremity laceration secondary to mechanical fall. Patient reports that she was walking in her house when she lost her footing, fell backw ards, and sustained a laceration to her posterior aspect of left calf. She is on Coumadin, and states that it was actively bleeding at home. Of note she is scheduled to check her INR levels tomorrow. Patient denies any other injuries, numbness, decreased ROM, or any other complaints. Patient denies experiencing dizziness, headache, chest pain, or palpitations prior to fall. Time/Duration: Prior to Arrival Symptom Onset: Sudden Symptom Course: Improving Context: Home <Kayleen Zapata PA-C - Last Filed: 02/13/18 00:36> <Darryl Martinez - Last Filed: 02/13/18 22:09> - General Chief Complaint: Abnormal Skin Integrity Time Seen by Provider: 02/12/18 19:22 Past Medical History - Provider Review Nursing Documentation Reviewed: Yes - Infectious Disease Hx of Infectious Diseases: None - Tetanus Immunization Tetanus Immunization: Unknown - Cardiac Hx Cardiac Disorders: Yes Hx Hypertension: Yes - Pulmonary Hx Respiratory Disorders: No - Neurological HX Cerebrovascular Accident: Yes - HEENT Hx HEENT Disorder: Yes Hx Cataracts: Yes (WITH SX) - Renal Hx Renal Disorder: No - Endocrine/Metabolic Hx Diabetes Mellitus Type 2: Yes Hx Hypothyroidism: Yes - Hematological/Oncological Hx Blood Disorders: Yes Hx Shingles: Yes - Integumentary Hx Dermatological Disorder: Yes Hx Eczema: Yes Other/Comment: 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 on radiation therapy - Musculoskeletal/Rheumatological Hx Musculoskeletal Disorders: Yes Hx Falls: Yes Hx Unsteady Gait: Yes (CANE) - Gastrointestinal Hx Gastrointestinal Disorders: Yes (CHOLECYSTECTOMY,APPENDECTOMY,) Hx Gastroesophageal Reflux: Yes - Genitourinary/Gynecological Hx Genitourinary Disorders: No - Psychiatric Hx Psychophysiologic Disorder: Yes Hx Anxiety: Yes Hx Substance Use: No - Surgical History Hx Appendectomy: Yes Hx Cardiac Catheterization: Yes (3 stents) Hx Cholecystectomy: Yes Hx Coronary Stent: Yes Hx Hysterectomy: Yes Other/Comment: TONSILLECTOMY - Anesthesia Hx Anesthesia: Yes Hx Anesthesia Reactions: No Hx Malignant Hyperthermia: No - Suicidal Assessment Feels Threatened In Home Enviroment: No <Kayleen Zapata PA-C - Last Filed: 02/13/18 00:36> Family/Social History - Physician Review Nursing Documentation Reviewed: Yes Family/Social History: No Known Family HX Smoking Status: Former Smoker Hx Alcohol Use: No Hx Substance Use: No Hx Substance Use Treatment: No <Kayleen Zapata PA-C - Last Filed: 02/13/18 00:36> Allergies/Home Meds <Kayleen Zapata PA-C - Last Filed: 02/13/18 00:36> <Darryl Martinez - Last Filed: 02/13/18 22:09> Allergies/Adverse Reactions: Allergies lactose Allergy (Severe, Verified 02/19/17 09:37) DIARRHEA Penicillins Allergy (Severe, Verified 02/19/17 09:37) Epigastric Pain Pork/Porcine Containing Products Allergy (Severe, Verified 02/19/17 09:37) VOMITING Home Medications: Home Meds Medication Instructions Recorded Confirmed RX: Citalopram Hydrobromide 20 mg PO QAM 10/04/15 07/30/17 [Celexa] RX: Insulin Human NPH/Reg [HumuLIN 25 units SC ACBD 10/04/15 07/30/17 70/30 (NPH/Reg)] RX: Isosorbide Mononitrate [Imdur] 60 mg PO QAM 10/04/15 07/30/17 RX: Warfarin Sodium [Jantoven] 2.5 mg PO HS 10/04/15 07/30/17 RX: Budesonide [Entocort EC] 2 cap PO DAILY 09/28/16 07/30/17 RX: Levothyroxine [Synthroid] 112 mcg PO DAILY 09/28/16 07/30/17 amLODIPine [Norvasc] 5 mg PO DAILY 09/28/16 07/30/17 clonazePAM [clonAZEPAM] 0.5 mg PO BID 09/29/16 07/30/17 Review of Systems - Physician Review All systems were reviewed & negative as marked: Yes - Review of Systems Constitutional: absent: Fevers Respiratory: absent: SOB Cardiovascular: absent: Chest Pain, Palpitations, Syncope Skin: Laceration (left lower extremity) Neurological: absent: Headache, Dizziness <Kayleen Zapata PA-C - Last Filed: 02/13/18 00:36> Physical Exam Vital Signs Reviewed: Yes Vital Signs Temp Pulse Resp BP Pulse Ox 02/12/18 19:10 98.2 F 68 18 131/70 95 Temperature: Afebrile Blood Pressure: Normal Pulse: Regular Respiratory Rate: Normal Appearance: Positive for: Well-Appearing Mental Status: Positive for: Alert and Oriented X 3 - Systems Exam Head: Present: Atraumatic, Normocephalic Pupils: Present: PERRL Extroacular Muscles: Present: EOMI Conjunctiva: Present: Normal Mouth: Present: Moist Mucous Membranes Neck: Present: Normal Range of Motion Respiratory/Chest: Present: Clear to Auscultation, Good Air Exchange. No: Respiratory Distress, Accessory Muscle Use Cardiovascular: Present: Regular Rate and Rhythm, Normal S1, S2. No: Murmurs Abdomen: No: Tenderness, Distention, Peritoneal Signs Back: Present: Normal Inspection Upper Extremity: Present: Normal Inspection. No: Cyanosis, Edema Lower Extremity: Present: Normal Inspection, Normal ROM, Swelling (Swelling to posterior aspect of left ankle along with bruising.) Neurological: Present: GCS=15, CN II-XII Intact, Speech Normal Skin: Present: Warm, Dry, Normal Color, Laceration (2cm V-shaped laceration to posterior aspect of left calf with no active bleeding at this time. ). No: Rashes Psychiatric: Present: Alert, Oriented x 3, Normal Insight, Normal Concentration <Kayleen Zapata PA-C - Last Filed: 02/13/18 00:36> Vital Signs Temp Pulse Resp BP Pulse Ox 02/12/18 21:00 64 18 128/69 95 02/12/18 19:10 98.2 F 68 18 131/70 95 <Darryl Martinez - Last Filed: 02/13/18 22:09> Medical Decision Making ED Course and Treatment: 02/12/18 19:49 Impression: 82 year old female complaining of left lower extremity laceration secondary to fall that occurred earlier today. Differential Diagnosis included but are not limited to: Plan: --PTT --Tdap vaccine -- Lidocaine/Epinepherine -- Reassess and disposition Prior Visits: Notes and results from previous visits were reviewed. Progress Notes: Labs reviewed : hgb 13, INR 1.8. On re-evaluation, patient is resting in bed comfortably, remains AAOx3, in no acute distress. She tolerated the procedure well and the wound is clean without any active bleeding. Diagnostic results d/w the patient in great detail. Patient advised she can take her coumadin dose of 2.5 mg po today. Case d/w Dr. Jones who is in agreement with plan and with outpatient follow up in his office. Patient instructed to follow-up with pmd in 1-2 days without fail. Return to the emergency room at any time for any new or worsening symptoms. Patient states he fully agrees with and understands discharge instructions. States that he agrees with the plan and disposition. Verbalized and repeated discharge instructions and plan. I have given the patient opportunity to ask any additional questions. - Medication Orders Current Medication Orders: Discontinued Medications Lidocaine/Epinephrine (Lidocaine 1%/Epinephrine 1:[id number] 30 Ml) 5 ml IJ STAT STA Stop: 02/12/18 19:39 <Kayleen Zapata PA-C - Last Filed: 02/13/18 00:36> - Lab Interpretations Lab Results: 02/12/18 20:00 Lab Results 02/12/18 20:00: PT 20.8 H, INR 1.80, APTT 35.5 02/12/18 20:00: WBC 7.7 D, RBC 4.18, Hgb 13.0, Hct 39.4, MCV 94.3, MCH 31.1, MCHC 33.0, RDW 12.9, Plt Count 175, MPV 11.5 H, Gran % 76.2 H, Lymph % (Auto) 17.4 L, [place] % (Auto) 5.4, Eos % (Auto) 0.9 L, Baso % (Auto) 0.1, Gran # 5.89, Lymph # (Auto) 1.4, [place] # (Auto) 0.4, Eos # (Auto) 0.1, Baso # (Auto) 0.01 - Medication Orders Current Medication Orders: Discontinued Medications Lidocaine/Epinephrine (Lidocaine 1%/Epinephrine 1:[id number] 30 Ml) 5 ml IJ STAT STA Stop: 02/12/18 19:39 Last Admin: 02/12/18 20:01 Dose: 5 ml Tetanus/Reduced Diphtheria/Acell Pertussis (Boostrix Vaccine Inj) 0.5 ml IM .ONCE ONE Stop: 02/12/18 19:52 Last Admin: 02/12/18 20:02 Dose: 0.5 ml Immunization Registry Document 02/12/18 20:02 [place] (Rec: 02/12/18 20:02 LA [id number]) [facility]-Date provided 02/12/18 MAR Immunization Data Document 02/12/18 20:02 LA (Rec: 02/12/18 20:02 LA [id number]) Immunization Data Vaccine Information Sheet Given Yes <Darryl Martinez - Last Filed: 02/13/18 22:09> Procedure: Wound Repair - Time Performed Time Performed: 19:45 - Time Out Time Out: Side verified, Site verified, Patient ID confirmed, Sterile procedures obs. - Consent Obtained Consent obtained: Verbal - Performed by Performed by: Mid-level Provider - Indications Indication(s):: Laceration - Location Location:: Left, Leg Shape:: Other (V shape) Dimensions Length cm: 2 Depth:: Epidermis - Anesthetic Technique Anesthetic Technique: Local Local/Regional Anesthetic:: Lidocaine 1% w/epi - Debris Debris:: None - Irrigated Irrigated with ml of normal saline: 50 - Complexity Complexity:: Simple (one layer) - Wound repair method Sutures:: # (4), Size (4-0 nylon) - Complications Complications: none, no active bleeding observed post laceration repair - Patient tolerated procedure Patient Tolerated Procedure:: Well <Kayleen Zapata PA-C - Last Filed: 02/13/18 00:36> - PA / WAITER/WAITRESS INFORMAL / Resident Statement BR[facility]FORD has reviewed & agrees with the documentation as recorded. - Scribe Statement The provider has reviewed the documentation as recorded by the Scribe Michael Montes Provider Scribe Attestation: All medical record entries made by the Scribe were at my direction and personally dictated by me. I have reviewed the chart and agree that the record accurately reflects my personal performance of the history, physical exam, medical decision making, and the department course for this patient. I have also personally directed, reviewed, and agree with the discharge instructions and disposition. <Kayleen Zapata PA-C - Last Filed: 02/13/18 00:36> - PA / WAITER/WAITRESS INFORMAL / Resident Statement BR[facility]FORD has reviewed & agrees with the documentation as recorded. <JuanDarryl - Last Filed: 02/13/18 22:09> Disposition/Present on Arrival - Present on Arrival Any Indicators Present on Arrival: No History of DVT/PE: No History of Uncontrolled Diabetes: No Urinary Catheter: No History of Decub. Ulcer: No History Surgical Site Infection Following: None - Disposition Have Diagnosis and Disposition been Completed?: Yes Disposition Time: 21:00 Patient Plan: Discharge <Kayleen Zapata PA-C - Last Filed: 02/13/18 00:36> <JuanDarryl - Last Filed: 02/13/18 22:09> - Disposition Diagnosis: Laceration of leg Disposition: HOME/ ROUTINE Condition: STABLE Discharge Instructions (ExitCare): Wound Care, Laceration Repair With Stitches (DC) Additional Instructions: Thank you for letting us take care of you today. You were treated for L leg laceration. The emergency medical care you received today was directed at your a cute symptoms. Have sutures removed after 7 days. Return to the Emergency Department if your symptoms worsen, do not improve, or if you have any other problems. Please contact your doctor in 2 days for re-evaluation and follow up. Bring any paperwork you were given at discharge with you along with any medications you are taking to your follow up visit. Our treatment cannot replace ongoing medical care by a primary care provider (PCP) outside of the emergency department. Thank you for allowing the [facility] team to be part of your care today. Your INR level today was 1.8 Referrals: Deena Jones MD [Primary Care Provider] - Follow up with primary Forms: [employer] (Pashto)
[2018-02-12] MEDS ORDERED: TDAP Vaccine 0.5 mL Syr IM ONE (19:51)
[2018-02-12 20:22] LABS: BASO # 0.01 K/mm3 (0.0-2.0); BASO % 0.1 % (0.0-3.0); EOS # 0.1 (0.0-0.7); EOS % 0.9 % (1.5-5.0); GRAN # 5.89 (1.4-6.5); GRAN % 76.2 % (50.0-68.0); LYMPH # 1.4 (1.2-3.4); LYMPH % 17.4 % (22.0-35.0); MEAN CELL VOLUME 94.3 fl (80.0-105.0); MEAN CORPUSCULAR HEMOGLOBIN 31.1 pg (25.0-35.0); MEAN PLATELET VOLUME 11.5 fl (7.0-11.0); MONO # 0.4 (0.1-0.6); MONO % 5.4 % (1.0-6.0); RBC 4.18 10^6/uL (3.5-6.1); RED CELL DISTRIBUTION WIDTH 12.9 % (11.5-14.5); WHITE BLOOD COUNT 7.7 10^3/ul (4.5-11.0)
[2018-02-12 20:27] LABS: INR 1.8; PARTIAL THROMBOPLASTIN TIME 35.5 Seconds (25.1-36.5); PROTHROMBIN TIME 20.8 SECONDS (9.4-12.5)
[2018-02-12 21:18] VITALS: BP 128/69; PULSE 64
== END 2018-02-12 21:39 | disposition home or self-care (01) ==
LOC: ED 18:55
DX: S81.812A Laceration without foreign body, left lower leg, initial encounter (principal); W01.0XXA Fall on same level from slipping, tripping and stumbling without subsequent striking against object, initial encounter; Y93.01 Activity, walking, marching and hiking; Y92.009 Unspecified place in unspecified non-institutional (private) residence as the place of occurrence of the external cause; Z23 Encounter for immunization; Z79.01 Long term (current) use of anticoagulants

== ENCOUNTER 2018-02-20 14:59 | Emergency (ER) | payer MEDICARE, BC ==
[2018-02-20 15:00] VITALS: BMI 34.5
--- NOTE | 2018-02-20 15:49 | ED PDOC ---
Arrival/HPI - General Chief Complaint: Suture/Staple Removal Time Seen by Provider: 02/20/18 15:11 Historian: Patient - History of Present Illness Narrative History of Present Illness (Text): 02/20/18 15:49 82yr old female presents today for suture removal to left leg. pt denies pain. states she has been apply abx ointment to wound. no fever/chills. no other complaints. Past Medical History - Provider Review Nursing Documentation Reviewed: Yes - Travel History Have you recently traveled outside [place] w/in the past 3 mons?: No - Infectious Disease Hx of Infectious Diseases: None - Tetanus Immunization Tetanus Immunization: Up to Date - Cardiac Hx Cardiac Disorders: Yes Hx Hypertension: Yes - Pulmonary Hx Respiratory Disorders: No - Neurological HX Cerebrovascular Accident: Yes - HEENT Hx HEENT Disorder: Yes Hx Cataracts: Yes (WITH SX) - Renal Hx Renal Disorder: No - Endocrine/Metabolic Hx Diabetes Mellitus Type 2: Yes Hx Hypothyroidism: Yes - Hematological/Oncological Hx Blood Disorders: Yes Hx Shingles: Yes - Integumentary Hx Dermatological Disorder: Yes Hx Eczema: Yes Other/Comment: 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 on radiation therapy - Musculoskeletal/Rheumatological Hx Musculoskeletal Disorders: Yes Hx Falls: Yes Hx Unsteady Gait: Yes (CANE) - Gastrointestinal Hx Gastrointestinal Disorders: Yes (CHOLECYSTECTOMY,APPENDECTOMY,) Hx Gastroesophageal Reflux: Yes - Genitourinary/Gynecological Hx Genitourinary Disorders: No - Psychiatric Hx Psychophysiologic Disorder: Yes Hx Anxiety: Yes Hx Substance Use: No - Surgical History Hx Appendectomy: Yes Hx Cardiac Catheterization: Yes (3 stents) Hx Cholecystectomy: Yes Hx Coronary Stent: Yes Hx Hysterectomy: Yes Other/Comment: TONSILLECTOMY - Anesthesia Hx Anesthesia: Yes Hx Anesthesia Reactions: No Hx Malignant Hyperthermia: No - Suicidal Assessment Feels Threatened In Home Enviroment: No Family/Social History - Physician Review Nursing Documentation Reviewed: Yes Family/Social History: Unknown Family HX Smoking Status: Former Smoker Hx Alcohol Use: No Hx Substance Use: No Hx Substance Use Treatment: No Allergies/Home Meds Allergies/Adverse Reactions: Allergies lactose Allergy (Severe, Verified 02/19/17 09:37) DIARRHEA Penicillins Allergy (Severe, Verified 02/19/17 09:37) Epigastric Pain Pork/Porcine Containing Products Allergy (Severe, Verified 02/19/17 09:37) VOMITING Home Medications: Home Meds Medication Instructions Recorded Confirmed Citalopram Hydrobromide [Celexa] 20 mg PO QAM 10/04/15 07/30/17 Insulin Human NPH/Reg [HumuLIN 25 units SC ACBD 10/04/15 07/30/17 70/30 (NPH/Reg)] Isosorbide Mononitrate [Imdur] 60 mg PO QAM 10/04/15 07/30/17 Warfarin Sodium [Jantoven] 2.5 mg PO HS 10/04/15 07/30/17 Budesonide [Entocort EC] 2 cap PO DAILY 09/28/16 07/30/17 Levothyroxine [Synthroid] 112 mcg PO DAILY 09/28/16 07/30/17 amLODIPine [Norvasc] 5 mg PO DAILY 09/28/16 07/30/17 clonazePAM [clonAZEPAM] 0.5 mg PO BID 09/29/16 07/30/17 Review of Systems - Review of Systems Constitutional: absent: Fatigue, Fevers Respiratory: absent: SOB, Cough Cardiovascular: absent: Chest Pain, Palpitations Gastrointestinal: absent: Abdominal Pain, Vomiting Musculoskeletal: absent: Arthralgias Skin: Laceration. absent: Cellulitis Neurological: absent: Headache, Dizziness Physical Exam Vital Signs Reviewed: Yes Temperature: Afebrile Blood Pressure: Normal Pulse: Regular Respiratory Rate: Normal Appearance: Positive for: Well-Appearing, Non-Toxic, Comfortable Pain Distress: None Mental Status: Positive for: Alert and Oriented X 3 - Systems Exam Head: Present: Atraumatic Respiratory/Chest: Present: Clear to Auscultation Cardiovascular: Present: Regular Rate and Rhythm Lower Extremity: Present: Other (there is a laceration with [address] to the left posterior calf; no erythema; no edema, no ecchymosis; no warmth, no purulent discharge) Neurological: Present: GCS=15 Skin: Present: Warm, Dry, Normal Color Psychiatric: Present: Alert, Oriented x 3 Medical Decision Making ED Course and Treatment: 02/20/18 16:02 Patient is nontoxic well-appearing in no distress. Vital signs are stable. suture removal: 3 sutures removed [address] there is a slight wound dehiscence will leave the remaining [address] and have the patient return in 3-4 days for suture removal. Wound healing well without signs of infection. I advised the patient to keep the wound clean and dry. apply steri strips as needed and return in 3-5 days for suture removal. advised immediate return if symptoms worsen persist or if new symptoms develop Patient verbalizes understanding of discharge instructions and need for immediate followup. all aspects of this case were discussed the attending of record. Impression: Wound check, suture removal keep wound clean and dry. Return in 3 days for suture removal. return immediately if signs of infection develop; apply steri strips as needed. Disposition/Present on Arrival - Present on Arrival Any Indicators Present on Arrival: No History of DVT/PE: No History of Uncontrolled Diabetes: No Urinary Catheter: No History of Decub. Ulcer: No History Surgical Site Infection Following: None - Disposition Have Diagnosis and Disposition been Completed?: Yes Diagnosis: Visit for suture removal Disposition: HOME/ ROUTINE Disposition Time: 15:46 Patient Plan: Discharge Patient Problems: Current Active Problems Problem Status Onset Visit for suture removal Acute Condition: GOOD Additional Instructions: keep wound clean and dry. Return in 3 days for suture removal. return immediately if signs of infection develop;high fevers, pain, redness, swelling, pus discharge apply steri strips as needed. Referrals: Deena Jones MD [Staff Provider] - Follow up with primary Forms: [employer] (Turkish)
[2018-02-20 16:19] VITALS: BP 132/56; PULSE 56; RESP 18; TEMP 97.8
[2018-02-20 16:21] VITALS: O2SAT 94
== END 2018-02-20 16:22 | disposition home or self-care (01) ==
LOC: ED 14:59
DX: Z48.02 Encounter for removal of sutures (principal); E11.9 Type 2 diabetes mellitus without complications; I10 Essential (primary) hypertension; E03.9 Hypothyroidism, unspecified; Z87.891 Personal history of nicotine dependence

== ENCOUNTER 2018-02-25 14:52 | Emergency (ER) | payer MEDICARE, BC ==
[2018-02-25 14:53] VITALS: BMI 34.5
[2018-02-25 15:44] VITALS: PULSE 64; TEMP 97.8
--- NOTE | 2018-02-25 16:04 | ED PDOC ---
Arrival/HPI - General Chief Complaint: Suture/Staple Removal Time Seen by Provider: 02/25/18 15:00 Historian: Patient - History of Present Illness Narrative History of Present Illness (Text): 02/25/18 16:07 82-year-old female presents today for suture removal to the left lower leg. pt denies fever/chills. denies pain. no other complaints. Past Medical History - Provider Review Nursing Documentation Reviewed: Yes - Travel History Have you recently traveled outside [place] w/in the past 3 mons?: No - Infectious Disease Hx of Infectious Diseases: None - Tetanus Immunization Tetanus Immunization: Up to Date - Cardiac Hx Cardiac Disorders: Yes Hx Hypertension: Yes - Pulmonary Hx Respiratory Disorders: No - Neurological Hx Neurological Disorder: Yes HX Cerebrovascular Accident: Yes - HEENT Hx HEENT Disorder: Yes Hx Cataracts: Yes (WITH SX) - Renal Hx Renal Disorder: No - Endocrine/Metabolic Hx Endocrine Disorders: Yes Hx Diabetes Mellitus Type 2: Yes Hx Hypothyroidism: Yes - Hematological/Oncological Hx Blood Disorders: Yes Hx Shingles: Yes - Integumentary Hx Dermatological Disorder: Yes Hx Eczema: Yes Other/Comment: 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 on radiation therapy - Musculoskeletal/Rheumatological Hx Musculoskeletal Disorders: Yes Hx Falls: Yes Hx Unsteady Gait: Yes (CANE) - Gastrointestinal Hx Gastrointestinal Disorders: Yes (CHOLECYSTECTOMY,APPENDECTOMY,) Hx Gastroesophageal Reflux: Yes - Genitourinary/Gynecological Hx Genitourinary Disorders: No - Psychiatric Hx Psychophysiologic Disorder: Yes Hx Anxiety: Yes Hx Substance Use: No - Surgical History Hx Appendectomy: Yes Hx Cardiac Catheterization: Yes (3 stents) Hx Cholecystectomy: Yes Hx Coronary Stent: Yes Hx Hysterectomy: Yes Other/Comment: TONSILLECTOMY - Anesthesia Hx Anesthesia: Yes Hx Anesthesia Reactions: No Hx Malignant Hyperthermia: No - Suicidal Assessment Feels Threatened In Home Enviroment: No Family/Social History - Physician Review Nursing Documentation Reviewed: Yes Family/Social History: Unknown Family HX Smoking Status: Former Smoker Hx Alcohol Use: No Hx Substance Use: No Hx Substance Use Treatment: No Allergies/Home Meds Allergies/Adverse Reactions: Allergies lactose Allergy (Severe, Verified 02/25/18 15:44) DIARRHEA Pork/Porcine Containing Products Allergy (Severe, Verified 02/25/18 15:44) VOMITING Home Medications: Home Meds Medication Instructions Recorded Confirmed Citalopram Hydrobromide [Celexa] 20 mg PO QAM 10/04/15 07/30/17 Insulin Human NPH/Reg [HumuLIN 25 units SC ACBD 10/04/15 07/30/17 70/30 (NPH/Reg)] Isosorbide Mononitrate [Imdur] 60 mg PO QAM 10/04/15 07/30/17 Warfarin Sodium [Jantoven] 2.5 mg PO HS 10/04/15 07/30/17 Budesonide [Entocort EC] 2 cap PO DAILY 09/28/16 07/30/17 Levothyroxine [Synthroid] 112 mcg PO DAILY 09/28/16 07/30/17 amLODIPine [Norvasc] 5 mg PO DAILY 09/28/16 07/30/17 clonazePAM [clonAZEPAM] 0.5 mg PO BID 09/29/16 07/30/17 Review of Systems - Review of Systems Constitutional: absent: Fatigue, Fevers Respiratory: absent: SOB, Cough Cardiovascular: absent: Chest Pain, Palpitations Gastrointestinal: absent: Abdominal Pain, Nausea, Vomiting Skin: Laceration Neurological: absent: Headache Psychiatric: absent: Anxiety, Depression Physical Exam Vital Signs Reviewed: Yes Vital Signs Temp Pulse Resp BP Pulse Ox 02/25/18 15:43 97.8 F 64 19 147/74 95 Temperature: Afebrile Blood Pressure: Normal Pulse: Regular Respiratory Rate: Normal Appearance: Positive for: Well-Appearing, Non-Toxic, Comfortable Pain Distress: None Mental Status: Positive for: Alert and Oriented X 3 - Systems Exam Head: Present: Atraumatic Respiratory/Chest: Present: Clear to Auscultation Cardiovascular: Present: Regular Rate and Rhythm Lower Extremity: Present: Normal ROM, Capillary Refill < 2 s, Other (left posterior leg; there are [address] in posterior leg. no erythema; no ecchymosis; no tenderness, no purulent discharge). No: CALF TENDERNESS, Tenderness, Erythema, Deformity Skin: Present: Warm, Dry Psychiatric: Present: Alert, Oriented x 3 Medical Decision Making ED Course and Treatment: 02/25/18 16:19 Patient is nontoxic well-appearing in no distress. Vital signs are stable. suture removal: 2 sutures removed Wound healing well without signs of infection I advised the patient to keep the wound clean and dry. return if symptoms worsen persist or if new symptoms develop Patient verbalizes understanding of discharge instructions and need for immediate followup. Impression: Wound check, suture removal Keep the wound clean and dry Follow up with primary care physician within the next 2 days Return immediately if symptoms worsen persist or if new symptoms develop Disposition/Present on Arrival - Present on Arrival Any Indicators Present on Arrival: No History of DVT/PE: No History of Uncontrolled Diabetes: No Urinary Catheter: No History of Decub. Ulcer: No History Surgical Site Infection Following: None - Disposition Have Diagnosis and Disposition been Completed?: Yes Diagnosis: Visit for suture removal, Visit for wound check Disposition: HOME/ ROUTINE Disposition Time: 16:06 Patient Plan: Discharge Patient Problems: Current Active Problems Problem Status Onset Visit for suture removal Acute Visit for wound check Acute Condition: GOOD Discharge Instructions (ExitCare): Stitches Removal Additional Instructions: keep wound clean and dry follow up with the primary care physician within the next 2 days. return if symptoms worsen,persist or if new symptoms develop. Referrals: Deena Jones MD [Family Provider] - Follow up with primary Forms: [employer] (Serbian)
[2018-02-25 23:51] VITALS: BP 138/62; RESP 18; O2SAT 96
== END 2018-02-25 16:50 | disposition home or self-care (01) ==
LOC: ED 14:52
DX: Z48.02 Encounter for removal of sutures (principal); I10 Essential (primary) hypertension; E11.9 Type 2 diabetes mellitus without complications; E03.9 Hypothyroidism, unspecified; Z87.891 Personal history of nicotine dependence

== ENCOUNTER 2018-02-26 11:21 | Observation (INO) | payer MEDICARE, BC ==
[2018-02-26 11:22] VITALS: BMI 34.5
--- NOTE | 2018-02-26 12:05 | ED PDOC ---
Arrival/HPI - General Chief Complaint: Dizziness/Lightheaded Time Seen by Provider: 02/26/18 11:36 Historian: Patient - History of Present Illness Narrative History of Present Illness (Text): 02/26/18 11:54 A 82 year old female, whose past medical history includes hypertension, CVA, vertigo, hypothyroidism, and diabetes type 2, presents to the emergency department complaining of dizziness. Patient reports she falls a lot due to her dizziness. States today dizziness began at approximately 09:00, and patient had to hold onto furniture in order to ambulate around her home. Describes dizziness as "woozy and off-balance," rather than room-spinning. Mentions she does not feel dizzy when laying down. When standing, patient feels like falling forward. Patient denies any chest pain, shortness of breath, or any other complaints at this time. PMD: Dr. Deena Jones Past Medical History - Provider Review Nursing Documentation Reviewed: Yes - Infectious Disease Hx of Infectious Diseases: None - Tetanus Immunization Tetanus Immunization: Up to Date - Cardiac Hx Cardiac Disorders: Yes Hx Hypertension: Yes - Pulmonary Hx Respiratory Disorders: No - Neurological Hx Neurological Disorder: Yes HX Cerebrovascular Accident: Yes Hx Vertigo: Yes - HEENT Hx HEENT Disorder: Yes Hx Cataracts: Yes (WITH SX) - Renal Hx Renal Disorder: No - Endocrine/Metabolic Hx Endocrine Disorders: Yes Hx Diabetes Mellitus Type 2: Yes Hx Hypothyroidism: Yes - Hematological/Oncological Hx Blood Disorders: Yes Hx Shingles: Yes - Integumentary Hx Dermatological Disorder: Yes Hx Eczema: Yes Other/Comment: 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 on radiation therapy - Musculoskeletal/Rheumatological Hx Musculoskeletal Disorders: Yes Hx Falls: Yes Hx Unsteady Gait: Yes (CANE) - Gastrointestinal Hx Gastrointestinal Disorders: Yes (CHOLECYSTECTOMY,APPENDECTOMY,) Hx Gastroesophageal Reflux: Yes - Genitourinary/Gynecological Hx Genitourinary Disorders: No - Psychiatric Hx Psychophysiologic Disorder: Yes Hx Anxiety: Yes Hx Substance Use: No - Surgical History Hx Appendectomy: Yes Hx Cardiac Catheterization: Yes (3 stents) Hx Cholecystectomy: Yes Hx Coronary Stent: Yes Hx Hysterectomy: Yes Other/Comment: TONSILLECTOMY - Anesthesia Hx Anesthesia: Yes Hx Anesthesia Reactions: No Hx Malignant Hyperthermia: No - Suicidal Assessment Feels Threatened In Home Enviroment: No Family/Social History - Physician Review Nursing Documentation Reviewed: Yes Family/Social History: No Known Family HX Smoking Status: Former Smoker Hx Alcohol Use: No Hx Substance Use: No Hx Substance Use Treatment: No Allergies/Home Meds Allergies/Adverse Reactions: Allergies lactose Allergy (Severe, Verified 02/25/18 15:44) DIARRHEA Pork/Porcine Containing Products Allergy (Severe, Verified 02/25/18 15:44) VOMITING Home Medications: Home Meds Medication Instructions Recorded Confirmed RX: Citalopram Hydrobromide 20 mg PO QAM 10/04/15 02/26/18 [Celexa] RX: Insulin Human NPH/Reg [HumuLIN 25 units SC ACBD 10/04/15 02/26/18 70/30 (NPH/Reg)] RX: Isosorbide Mononitrate [Imdur] 60 mg PO QAM 10/04/15 02/26/18 RX: Warfarin Sodium [Jantoven] 2.5 mg PO HS 10/04/15 02/26/18 RX: Budesonide [Entocort EC] 3 cap PO DAILY 09/28/16 02/26/18 RX: Levothyroxine [Synthroid] 112 mcg PO DAILY 09/28/16 02/26/18 amLODIPine [Norvasc] 5 mg PO DAILY 09/28/16 02/26/18 clonazePAM [clonAZEPAM] 0.5 mg PO BID 09/29/16 02/26/18 Mirabegron [Myrbetriq] 50 mg PO DAILY 02/26/18 02/26/18 RX: Loperamide HCl [Anti-Diarrheal] 2 mg PO PRN PRN 02/26/18 02/26/18 Review of Systems - Physician Review All systems were reviewed & negative as marked: Yes - Review of Systems Respiratory: absent: SOB Cardiovascular: absent: Chest Pain Neurological: Dizziness Physical Exam - Physical Exam Narrative Physical Exam (Text): Gen: VS reviewed, alert, well developed, well nourished, nontoxic, mild distress, patient appears unsteady on her feet. ENT: normal pharynx. Eye: EOMI, PERRL. Neck: no JVD, supple, no adenopathy. CV: regular rate, regular rhythm, no rubs, no murmur, no gallops, S1, S2, pulses equal and strong. Pulm: no distress, clear to auscultation, no wheeze, no rhonchi, breath sounds equal, no rales. Abd: soft, nontender, no guarding, no rebound, no rigidity, normal bowel sounds. Ext: no edema. Skin: good color, no rash, no cyanosis. Psych: responds appropriately to questions, normal affect. Neuro: oriented x 3, CN2-12 intact grossly, motor intact, sensation intact. Vital Signs Reviewed: Yes Vital Signs Temp Pulse Resp BP Pulse Ox 02/26/18 11:33 97.6 F 64 16 170/80 H 95 Temperature: Afebrile Blood Pressure: Hypertensive Pulse: Regular Respiratory Rate: Normal Appearance: Positive for: Well-Appearing, Non-Toxic, Comfortable Pain Distress: None Mental Status: Positive for: Alert and Oriented X 3 Finger Stick Blood Glucose: 152 Medical Decision Making ED Course and Treatment: 02/26/18 11:57 Impression: 82 year old female with dizziness. Physical exam shows patient appears to be unsteady on her feet; no other acute findings on examination. Plan: -- EKG -- Head CT -- Chest X-ray -- Labs -- Urinalysis -- Urine Culture -- Reassess and disposition Prior Visits: Notes and results from previous visits were reviewed. Patient was last seen in the emergency department on 02/25/2018 for suture removal of left lower leg. Patient was discharged home. Progress Notes: 02/26/18 11:42 EKG: Ordered, reviewed, and independently interpreted the EKG. Rate : 68 BPM Rhythm : NSR Interpretation : Normal QRS. normal access, poor R-wave progression, non- specific T-wave abnormality. Comparison : No previous EKG for comparison. 02/26/2018 13:[address] IMPRESSION: No acute intracranial findings. Dictator: Mario Bean MD 02/26/18 15:01 Code stroke alert called. 02/26/18 15:[address] berrios, neurology, she has seen the patient at bedside and recommends stroke alert initiated. at this time patient is not a candidate for thrombolysis, NIH stroke scale = 0, empirically tx with aspirin, further advanced imaging CTA head and neck and MRI. 02/26/18 15:[address] Valenzuela, who accepts the patient for admission. Requests for neurology consult with Dr. Wisdom. Aspirin refused by patient. error in admission pattern, admission accepted and changed to dr. jones. dr. valenzuela is not on the case and has been made aware. 02/26/18 17:13 02/26/18 18:33 - Lab Interpretations I have reviewed the lab results: Yes - RAD Interpretation Narrative RAD Interpretations (Text): 02/26/2018 15:19 Chest X-ray IMPRESSION: No active disease. Dictator: Mario Bean MD 02/26/2018 15:39 Head/Neck CTA IMPRESSION: Neck - Calcified plaque in the internal carotid arteries without significant stenosis. Head - Unremarkable CT Angiography of the Brain. Dictator: Mario Bean MD Radiology Orders: 02/26/18 11:53 HEAD W/O CONTRAST [CT] Stat CHEST PORTABLE [RAD] Stat NIHSS Stroke Scale 3 - How Severe is the Stroke Level of Consciousness: 0=Alert LOC to Questions: 0=Both comments correct LOC to commands: 0=Obeys both correctly Best Gaze: 0=Normal Visual: 0=No visual loss Facial: 0=Normal Motor Arm - Left: 0=No drift Motor Arm - Right: 0=No drift Motor Leg - Left: 0=No drift Motor Leg - Right: 0=No drift Limb Ataxia: 0=Absent Sensory: 0=Normal Best Language: 0=No aphasia Dysarthia: 0=Normal articulation Extinction & Inattention (Neglect): 0=Normal, no object Score: 0 - Scribe Statement The provider has reviewed the documentation as recorded by the Cyn Mehta Provider Scribe Attestation: All medical record entries made by the Scribe were at my direction and personally dictated by me. I have reviewed the chart and agree that the record accurately reflects my personal performance of the history, physical exam, medical decision making, and the department course for this patient. I have also personally directed, reviewed, and agree with the discharge instructions and disposition. Disposition/Present on Arrival - Present on Arrival Any Indicators Present on Arrival: No History of DVT/PE: No History of Uncontrolled Diabetes: No Urinary Catheter: No History of Decub. Ulcer: No History Surgical Site Infection Following: None - Disposition Have Diagnosis and Disposition been Completed?: Yes Diagnosis: CVA (cerebral vascular accident) Disposition: HOME/ ROUTINE Disposition Time: 15:39 Patient Plan: Admission Condition: STABLE
[2018-02-26 12:26] LABS: PH,URINE 6.5 (4.7-8.0); URINE BILIRUBIN NEGATIVE (NEGATIVE); URINE BLOOD NEGATIVE (NEGATIVE); URINE GLUCOSE (UA) NEGATIVE (NEGATIVE); URINE LEUKOCYTE ESTERASE TRACE Leu/uL (NEGATIVE); URINE PROTEIN NEGATIVE mg/dL (<30 mg/dL); URINE UROBILINOGEN 0.2 E.U./dL (<1 E.U./dL)
[2018-02-26 12:31] LABS: URINE APPEARANCE CLEAR (CLEAR); URINE COLOR YELLOW (YELLOW)
[2018-02-26 12:45] LABS: URINE RBC 0 - 2 /hpf (0-2)
[2018-02-26 12:46] LABS: URINE BACTERIA MANY (NEG)
[2018-02-26 12:52] LABS: BASO # 0.02 K/mm3 (0.0-2.0); BASO % 0.3 % (0.0-3.0); EOS # 0.2 (0.0-0.7); EOS % 2.1 % (1.5-5.0); GRAN # 4.62 (1.4-6.5); GRAN % 63.2 % (50.0-68.0); HEMOGLOBIN 14.2 g/dL (12.0-16.0); LYMPH # 1.9 (1.2-3.4); LYMPH % 25.4 % (22.0-35.0); MEAN CELL VOLUME 94.3 fl (80.0-105.0); MEAN CORPUSCULAR HEMOGLOBIN 31.3 pg (25.0-35.0); MEAN CORPUSCULAR HGB CONC 33.3 g/dl (31.0-37.0); MONO # 0.7 (0.1-0.6); RBC 4.53 10^6/uL (3.5-6.1); RED CELL DISTRIBUTION WIDTH 12.9 % (11.5-14.5); WHITE BLOOD COUNT 7.3 10^3/uL (4.5-11.0)
[2018-02-26 12:56] LABS: ALB/GLOB RATIO 1.1 (1.1-1.8); ALBUMIN 3.5 g/dL (3.0-4.8); BLOOD UREA NITROGEN 17 mg/dL (7-21); CALCIUM 10.1 mg/dL (8.4-10.5); GFR NON-AFRICAN AMERICAN > 60
[2018-02-26 12:57] LABS: ALT/SGPT 19 U/L (7-56); AST/SGOT 11 U/L (14-36); INR 1.57; PARTIAL THROMBOPLASTIN TIME 36.1 Seconds (25.1-36.5); PROTHROMBIN TIME 18.2 SECONDS (9.4-12.5)
[2018-02-26 13:07] LABS: TROPONIN I < 0.01 ng/mL
--- NOTE | 2018-02-26 13:40 | CT ---
Date of service: 02/26/2018 PROCEDURE: CT HEAD WITHOUT CONTRAST. HISTORY: dizziness COMPARISON: 12/16/2017 TECHNIQUE: Axial computed tomography images were obtained through the head/brain without intravenous contrast. Radiation dose: Total exam DLP = 890.98 mGy-cm. This CT exam was performed using one or more of the following dose reduction techniques: Automated exposure control, adjustment of the mA and/or kV according to patient size, and/or use of iterative reconstruction technique. FINDINGS: HEMORRHAGE: No intracranial hemorrhage. BRAIN: No mass effect or edema. Moderate to severe frontal atrophy. VENTRICLES: Unremarkable. No hydrocephalus. CALVARIUM: Unremarkable. PARANASAL SINUSES: Unremarkable as visualized. No significant inflammatory changes. MASTOID AIR CELLS: Unremarkable as visualized. No inflammatory changes. OTHER FINDINGS: Vascular tortuosity IMPRESSION: No acute intracranial findings
[2018-02-26] MEDS ORDERED: Iohexol 350 MG/100 ML VIAL ONE (15:12)
--- NOTE | 2018-02-26 15:23 | RAD ---
Date of service: 02/26/2018 HISTORY: pneumonia COMPARISON: No prior. FINDINGS: LUNGS: No active pulmonary disease. PLEURA: No significant pleural effusion identified, no pneumothorax apparent. CARDIOVASCULAR: Minimal aortic calcification Mild to moderate cardiomegaly no pulmonary vascular congestion. OSSEOUS STRUCTURES: No significant abnormalities. VISUALIZED UPPER ABDOMEN: Normal. OTHER FINDINGS: None. IMPRESSION: No active disease.
--- NOTE | 2018-02-26 15:42 | CT ---
Date of service: 02/26/2018 PROCEDURE: CT Angiography of the neck with contrast HISTORY: cva COMPARISON: None. TECHNIQUE: Contiguous axial images of the neck were obtained from the level of the skull-base to the superior mediastinum in the arteriographic phase of enhancement. Coronal and sagittal reformats or also generated. IV contrast dose: Radiation dose: Total exam DLP = 547.38 mGy-cm. This CT exam was performed using one or more of the following dose reduction techniques: Automated exposure control, adjustment of the mA and/or kV according to patient size, and/or use of iterative reconstruction technique. FINDINGS: RIGHT CAROTID ARTERIES: Common Carotid Artery: Normal. Carotid Bifurcation: Normal. Internal Carotid Artery:Calcified plaque without significant stenosis External Carotid Artery (proximal branches): Normal. LEFT CAROTID ARTERIES: Common Carotid Artery: Normal. Carotid Bifurcation: Normal. Internal Carotid Artery:Calcified plaque without significant stenosis External Carotid Artery (proximal branches): Normal. VERTEBRAL ARTERIES: Right Vertebral Artery: Normal. Left Vertebral Artery: Normal. OTHER FINDINGS: no aortic atherosclerotic calcification or mural plaque present. IMPRESSION: Calcified plaque in the internal carotid arteries without significant stenosis CT Angiography of the Brain. HISTORY: cva COMPARISON: None available. TECHNIQUE: CT angiography of the intracranial arteries was performed. Coronal and sagittal maximum intensity projection reformated images were generated. Radiation dose: Total exam DLP = 547.38 mGy-cm. This CT exam was performed using one or more of the following dose reduction techniques: Automated exposure control, adjustment of the mA and/or kV according to patient size, and/or use of iterative reconstruction technique. FINDINGS: INTERNAL CEREBRAL ARTERIES: Unremarkable. The skull base, petrous, cavernous and supraclinoid segments are bilaterally widely patent. ANTERIOR CEREBRAL ARTERIES: Unremarkable. A1 and A2 segments are widely patent. Smaller distal branches unremarkable, as visualized. MIDDLE CEREBRAL ARTERIES: Unremarkable. M1 and M2 segments are widely patent. Perisylvian branches grossly symmetric. POSTERIOR CIRCULATION: Basilar Artery: Unremarkable. Distal Vertebral Arteries: Unremarkable. Posterior Cerebral Arteries: Unremarkable. Posterior Inferior Cerebellar Arteries: Unremarkable. ANEURYSM/ VASCULAR MALFORMATIONS: None. OTHER FINDINGS: None. IMPRESSION: Unremarkable CT Angiography of the Brain.
--- NOTE | 2018-02-26 17:51 | CARD ---
APPROVED REPORT Date of service: 02/26/2018 EKG Measurement Heart [id number] <Conclusion> Normal sinus rhythm Left axis deviation Abnormal ECG
[2018-02-26] MEDS ORDERED: LOPERAMIDE HCL 2 MG PO PRN (18:12)
[2018-02-27] MEDS: Insulin Reg-LOW-Coverage SC SCH ×5 (00:36→21:43)
--- NOTE | 2018-02-27 01:53 | HP ---
DATE OF EXAM: HISTORY OF PRESENT ILLNESS: This is an 82-year-old female reportedly over the last several days has been feeling dizzy with an unsteady gait, has a past history of multiple falls. She was advised to come into the emergency room after discussion with her family and daughter. 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 SOCIAL HISTORY: She is a nonsmoker, nondrinker, and nondrug user. ALLERGIES: STATED ABOVE. HOME MEDICATIONS: Reported to be clonazepam, amlodipine, warfarin, Myrbetriq, Synthroid, Imdur, Humulin, Celexa, Entocort enemas, and loperamide. Patient is reported to have had a cardiogram which showed a sinus rhythm with a left axis deviation. She had a chest x-ray, which showed [id number] cardiomegaly with no active disease. She had a CAT scan of the head, which reported no acute intracranial findings. She had a head and neck, CT angio, which reported showing a calcified plaque in the internal carotid arteries without significant stenosis in left carotids and CT angio of the brain is reported as being unremarkable. LABORATORY DATA: Shows WBC 7.3, RBC 4.5, hemoglobin 14.2, hematocrit 42.7, and platelet count 166,000. PT is 18.2 with an INR of 1.57 and PTT is 36.1. Chemistry shows sodium 138, potassium 3.8, chloride 104, BUN 17, and creatinine 0.9. Random blood sugar is 198. Total bilirubin is 1.8. LFTs are normal. Troponin is less than 0.01. Her albumin is 2.5. Urinalysis shows many urine bacteria with trace leukocyte esterase. ASSESSMENT AND PLAN: In the emergency room, the patient was reported to have been seen by the emergency room physician who requested a neuro hospitalist consult as well as a Neurology consult. She was placed on a diabetic diet by the Neurology hospitalist. Patient will be admitted to Telemetry and we will await input from the individual consultants, monitor the patient's blood sugar. Deena Jones MD
--- NOTE | 2018-02-27 02:23 | CP.PCM.CON ---
History of Present Illness - History of Present Illness History of Present Illness: 82 yr old woman who has a pmh of several strokes in the past, hypothyroidism, DM 2, and chronic vertigo was BIB family for dizziness and frequent falls over the last several months. DIzziness started several days ago, worsened this morning, and continues to be severe. She says her Patient was brought in as a code stroke, but she was not a TPA candidate, and her NIHSS is 0. ROS: malaise and dizziness. ON exam: AAOX3. PERRl. EOMI motor/sensory: normal. cerebellar: f/n shows bilateral tremor. Gait not tested. +2 dtr ul and ll bl. Toes downgoing. No clonus. Past Patient History - Infectious Disease Hx of Infectious Diseases: None - Tetanus Immunizations Tetanus Immunization: Up to Date - Past Social History Smoking Status: Never Smoked - CARDIAC Hx Cardiac Disorders: Yes Hx Hypertension: Yes - PULMONARY Hx Respiratory Disorders: No - NEUROLOGICAL Hx Neurological Disorder: Yes HX Cerebrovascular Accident: Yes - HEENT Hx HEENT Problems: Yes Hx Cataracts: Yes (WITH SX) - RENAL Hx Chronic Kidney Disease: No - ENDOCRINE/METABOLIC Hx Endocrine Disorders: Yes Hx Diabetes Mellitus Type 2: Yes Hx Hypothyroidism: Yes - HEMATOLOGICAL/ONCOLOGICAL Hx Blood Disorders: Yes Hx Shingles: Yes - INTEGUMENTARY Hx Dermatological Problems: Yes Hx Eczema: Yes Other/Comment: 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 on radiation therapy - MUSCULOSKELETAL/RHEUMATOLOGICAL Hx Musculoskeletal Disorders: Yes Hx Falls: Yes Hx Unsteady Gait: Yes (CANE) - GASTROINTESTINAL Hx Gastrointestinal Disorders: Yes (CHOLECYSTECTOMY,APPENDECTOMY,) Hx Gastroesophageal Reflux: Yes - GENITOURINARY/GYNECOLOGICAL Hx Genitourinary Disorders: No - PSYCHIATRIC Hx Psychophysiologic Disorder: Yes Hx Anxiety: Yes - SURGICAL HISTORY Hx Appendectomy: Yes Hx Cardiac Catheterization: Yes (3 stents) Hx Cholecystectomy: Yes Hx Coronary Stent: Yes Hx Hysterectomy: Yes Other/Comment: TONSILLECTOMY - ANESTHESIA Hx Anesthesia: Yes Hx Anesthesia Reactions: No Hx Malignant Hyperthermia: No Meds Allergies/Adverse Reactions: Allergies Allergy/AdvReac Type Severity Reaction Status Date / Time lactose Allergy Severe DIARRHEA Verified 02/25/18 15:44 Pork/Porcine Containing Allergy Severe VOMITING Verified 02/25/18 15:44 Products - Medications Medications: Current Medications Amlodipine Besylate (Norvasc) 5 mg PO DAILY RYAN Budesonide (Entocort Ec) 3 mg PO DAILY RYAN Citalopram Hydrobromide (Celexa) 20 mg PO QAM RYAN Clonazepam (Klonopin) 0.5 mg PO BID RYAN; Protocol Insulin Human Regular (Humulin R Low) 0 units SC ACHS RYAN; Protocol Last Admin: 02/27/18 00:36 Dose: Not Given Isosorbide Mononitrate (Imdur) 60 mg PO QAM [facility] Levothyroxine Sodium (Synthroid) 112 mcg PO DAILY RYAN Loperamide HCl (Imodium) 2 mg PO Q6H PRN PRN Reason: Diarrhea Non-Formulary Medication (Mirabegron [Myrbetriq]) 50 mg PO DAILY [facility] Results - Vital Signs Recent Vital Signs: Last Vital Signs Temp 97.6 F 02/26/18 23:01 Pulse 56 L 02/26/18 23:01 Resp 14 02/27/18 01:42 BP 152/85 H 02/26/18 23:01 Pulse Ox 96 02/26/18 23:01 - Labs Result Diagrams: 02/26/18 12:30 02/26/18 12:30 Labs: Laboratory Results - last 24 hr 02/26/18 02/26/18 02/26/18 11:50 12:10 12:30 WBC 7.3 RBC 4.53 Hgb 14.2 Hct 42.7 MCV 94.3 MCH 31.3 MCHC 33.3 RDW 12.9 Plt Count 166 MPV 11.0 Gran % 63.2 Lymph % (Auto) 25.4 Oliver % (Auto) 9.0 H Eos % (Auto) 2.1 Baso % (Auto) 0.3 Gran # 4.62 Lymph # (Auto) 1.9 Oliver # (Auto) 0.7 H Eos # (Auto) 0.2 Baso # (Auto) 0.02 PT INR APTT Sodium Potassium Chloride Carbon Dioxide Anion Gap BUN Creatinine Est GFR ( Amer) Est GFR (Non-Af Amer) POC Glucose (mg/dL) 152 H Random Glucose Calcium Magnesium Total Bilirubin AST ALT Alkaline Phosphatase Troponin I Total Protein Albumin Globulin Albumin/Globulin Ratio Urine Color Yellow Urine Appearance Clear Urine pH 6.5 Ur Specific [place] <= 1.005 Urine Protein Negative Urine Glucose (UA) Negative Urine Ketones Negative Urine Blood Negative Urine Nitrate Negative Urine Bilirubin Negative Urine Urobilinogen 0.2 Ur Leukocyte Esterase Trace H Urine RBC 0 - 2 Urine WBC 2 - 5 Ur Epithelial Cells 6 - 8 Urine Bacteria Many 02/26/18 02/26/18 02/26/18 12:30 12:30 23:09 WBC RBC Hgb Hct MCV MCH MCHC RDW Plt Count MPV Gran % Lymph % (Auto) Oliver % (Auto) Eos % (Auto) Baso % (Auto) Gran # Lymph # (Auto) Oliver # (Auto) Eos # (Auto) Baso # (Auto) PT 18.2 H INR 1.57 APTT 36.1 Sodium 138 Potassium 3.8 Chloride 104 Carbon Dioxide 30 Anion Gap 8 L BUN 17 Creatinine 0.9 Est GFR ( Amer) > 60 Est GFR (Non-Af Amer) > 60 POC Glucose (mg/dL) 183 H Random Glucose 198 H Calcium 10.1 Magnesium 1.8 Total Bilirubin 1.8 H AST 11 L ALT 19 Alkaline Phosphatase 119 Troponin I < 0.01 Total Protein 6.6 Albumin 3.5 Globulin 3.2 Albumin/Globulin Ratio 1.1 Urine Color Urine Appearance Urine pH Ur Specific [place] Urine Protein Urine Glucose (UA) Urine Ketones Urine Blood Urine Nitrate Urine Bilirubin Urine Urobilinogen Ur Leukocyte Esterase Urine RBC Urine WBC Ur Epithelial Cells Urine Bacteria Assessment & Plan - Assessment and Plan (Free Text) Assessment: 82 yr old woman with possible new posterior circulation stroke, no stigmata of Parkinsons disease, and now stable. [facility] nih of 0. Plan: 1. MRI Brain without contrast 2. CTA head and neck 3. aspirin 4. meclizine 5. Physical therapy. Thank you DR berrios
--- NOTE | 2018-02-27 08:17 | CP.PCM.PN ---
Subjective - Date & Time of Evaluation Date of Evaluation: 02/27/18 - Subjective Subjective: Rogers Holman- Internal Medicine Resident- Progress Note on Behalf of Neurology Team Subjective: Patient seen and examined. No acute events overnight. Denies associated weakness and sensory changes in his upper/lower extremities bilaterally. Patient denies tongue biting, confusion, palpitations, auditory/visual changes from baseline, and focal deficits. Further denies fever, chills, chest pain, shortness of breath, nausea, vomiting, diarrhea, constipation, and urinary symptoms. 12 point ROS negative except as indicated in HPI Physical Examination: - Constitutional Appears: Well, Non-toxic, No Acute Distress - Head Exam Head Exam: old surgical incision superior portion of right side of skull, INFORMATION MANAGEMENT SPECIALIST shunt present on left side - Eye Exam Eye Exam: EOMI, Normal appearance - ENT Exam ENT Exam: Mucous Membranes Moist, Normal Exam, No tongue laceration - Neck Exam Neck exam: Positive for: Full Rom, Normal Inspection - Respiratory Exam Respiratory Exam: Clear to Auscultation Bilateral, NORMAL BREATHING PATTERN. absent: Accessory Muscle Use, Rales, Rhonchi, Wheezes, Respiratory Distress - Cardiovascular Exam Cardiovascular Exam: REGULAR RHYTHM, +S1, +S2 - GI/Abdominal Exam GI & Abdominal Exam: Normal Bowel Sounds, Soft. absent: Distended, Firm, Guarding, Rebound, Rigid, Tenderness - Extremities Exam Extremities exam: Positive for: full ROM, normal capillary refill, normal inspection, pedal pulses present - Neurological Exam Neurological exam: awake, alert, orientated x 3, responds to verbal stimuli, answers questions appropriately, follows commands, moves extremities past midline, muscle strength 5/5 bilateral upper and lower extremities, hand brass sorter 5/5 bilaterally, sensation is intact to touch throughout, CNII-CNXII intact bilaterally, no dysmetria - Psychiatric Exam Psychiatric exam: Normal Affect, Normal Mood - Skin Skin Exam: Intact, Normal Color, Warm Assessment and Plan: Patient is a 82 year old female with a past medical history of CVA, hypothyroidism, type II DM, and chronic vertigo was admitted for evaluation and treatment of dizziness and frequent falls. Neurology was consulted for management of the aforementioned symptoms. CVA - 02/25/[address] without contrast- No acute intracranial findings - 02/26/2018 CT Angiography of the neck with contrast- Unremarkable CT Angiog scott of the Brain - Patient case discussed with and plan approved by attending physician, Dr. Godoy Objective - Vital Signs/Intake and Output Vital Signs (last 24 hours): Temp Pulse Resp BP Pulse Ox 97.6 F 56 L 14 152/85 H 96 02/26/18 23:01 02/26/18 23:01 02/27/18 01:42 02/26/18 23:01 02/26/18 23:01 Intake and Output: 02/27/18 02/27/18 06:59 18:59 Intake Total 600 Balance 600 - Medications Medications: Current Medications Amlodipine Besylate (Norvasc) 5 mg PO DAILY [facility] Budesonide (Entocort Ec) 3 mg PO DAILY [facility] Citalopram Hydrobromide (Celexa) 20 mg PO QAM [facility] Clonazepam (Klonopin) 0.5 mg PO BID [facility]; Protocol Insulin Human Regular (Humulin R Low) 0 units SC [facility]; Protocol Last Admin: 02/27/18 00:36 Dose: Not Given Isosorbide Mononitrate (Imdur) 60 mg PO QAM [facility] Levothyroxine Sodium (Synthroid) 112 mcg PO DAILY [facility] Loperamide HCl (Imodium) 2 mg PO Q6H PRN PRN Reason: Diarrhea Non-Formulary Medication (Mirabegron [Myrbetriq]) 50 mg PO DAILY [facility] - Labs Labs: 02/26/18 12:30 02/26/18 12:30 PT 18.2 SECONDS (9.4-12.5) H 02/26/18 12:30 INR 1.57 02/26/18 12:30 APTT 36.1 Seconds (25.1-36.5) 02/26/18 12:30
[2018-02-27 08:55] LABS: INR 1.56; PROTHROMBIN TIME 18.1 SECONDS (9.4-12.5)
[2018-02-27] MEDS ORDERED: Budesonide 3 mg ER Cap PO SCH (10:00)
[2018-02-27] MEDS: Levothyroxine 112 MCG TAB PO SCH (10:23)
[2018-02-27] MEDS: Insulin Human NPH/Reg 70/30 Vial(3 ml) SC SCH (12:49)
--- NOTE | 2018-02-27 12:49 | CP.PCM.CON ---
<Mariama Cummings - Last Filed: 02/27/18 12:58> History of Present Illness - History of Present Illness History of Present Illness: Gastroenterology Fellow/PGY6 Consult Note 82 year old female with PMH of Lymphocytic colitis on Budesonide, CVA on Coumadin, HTN, DM, and Hypothyroidism presenting with dizziness. Patient notes feeling dizzy for one week that progressively worsened yesterday. GI consultation for microscopic colitis management. Patient notes baseline bowel habits of -3 bowel movements per day with use of Budesonide 9mg daily and Imodium as needed at home. Admits to symptom relapse with attempting dose reduction to 6mg daily. Denies NSAIDs use. Denies nausea, vomiting, abdominal pain, constipation, melena, hematochezia, or unintentional weight loss. Prior colonoscopy 09/2015 showed lymphocytic colitis, two 5mm tubular adenomas, descending/sigmoid diverticulosis, and internal hemorrhoids. Family History- denies stomach cancer, colon cancer Social History- denies tobacco, alcohol, illicit drug use Surgical History- hysterectomy, ovarian cyst removal, appendectomy, chol ecystectomy Review of Systems - Review of Systems Review of Systems: 12-point review of systems negative except for as above Past Patient History - Infectious Disease Hx of Infectious Diseases: None - Tetanus Immunizations Tetanus Immunization: Up to Date - Past Social History Smoking Status: Never Smoked - CARDIAC Hx Cardiac Disorders: Yes Hx Hypertension: Yes - PULMONARY Hx Respiratory Disorders: No - NEUROLOGICAL Hx Neurological Disorder: Yes HX Cerebrovascular Accident: Yes - HEENT Hx HEENT Problems: Yes Hx Cataracts: Yes (WITH SX) - RENAL Hx Chronic Kidney Disease: No - ENDOCRINE/METABOLIC Hx Endocrine Disorders: Yes Hx Diabetes Mellitus Type 2: Yes Hx Hypothyroidism: Yes - HEMATOLOGICAL/ONCOLOGICAL Hx Blood Disorders: Yes Hx Shingles: Yes - INTEGUMENTARY Hx Dermatological Problems: Yes Hx Eczema: Yes Other/Comment: 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 on radiation therapy - MUSCULOSKELETAL/RHEUMATOLOGICAL Hx Musculoskeletal Disorders: Yes Hx Falls: Yes Hx Unsteady Gait: Yes (CANE) - GASTROINTESTINAL Hx Gastrointestinal Disorders: Yes (CHOLECYSTECTOMY,APPENDECTOMY,) Hx Gastroesophageal Reflux: Yes - GENITOURINARY/GYNECOLOGICAL Hx Genitourinary Disorders: No - PSYCHIATRIC Hx Psychophysiologic Disorder: Yes Hx Anxiety: Yes - SURGICAL HISTORY Hx Appendectomy: Yes Hx Cardiac Catheterization: Yes (3 stents) Hx Cholecystectomy: Yes Hx Coronary Stent: Yes Hx Hysterectomy: Yes Other/Comment: TONSILLECTOMY - ANESTHESIA Hx Anesthesia: Yes Hx Anesthesia Reactions: No Hx Malignant Hyperthermia: No Meds Allergies/Adverse Reactions: Allergies Allergy/AdvReac Type Severity Reaction Status Date / Time lactose Allergy Severe DIARRHEA Verified 02/25/18 15:44 Pork/Porcine Containing Allergy Severe VOMITING Verified 02/25/18 15:44 Products - Medications Medications: Current Medications Amlodipine Besylate (Norvasc) 5 mg PO DAILY [facility] Last Admin: 02/27/18 10:25 Dose: 5 mg Budesonide (Entocort Ec) 3 mg PO DAILY [facility] Last Admin: 02/27/18 10:23 Dose: 3 mg Citalopram Hydrobromide (Celexa) 20 mg PO QAM [facility] Last Admin: 02/27/18 10:23 Dose: 20 mg Clonazepam (Klonopin) 0.5 mg PO BID [facility]; Protocol Last Admin: 02/27/18 10:23 Dose: 0.5 mg Insulin Human Regular (Humulin R Low) 0 units SC [facility]; Protocol Last Admin: 02/27/18 10:26 Dose: 1 unit Isosorbide Mononitrate (Imdur) 60 mg PO QAM [facility] Last Admin: 02/27/18 10:25 Dose: 60 mg Levothyroxine Sodium (Synthroid) 112 mcg PO DAILY [facility] Last Admin: 02/27/18 10:23 Dose: 112 mcg Loperamide HCl (Imodium) 2 mg PO Q6H PRN PRN Reason: Diarrhea Non-Formulary Medication (Mirabegron [Myrbetriq]) 50 mg PO DAILY [facility] Warfarin Sodium (Coumadin) 4 mg PO 1800 [facility]; Protocol Stop: 02/27/18 18:01 Physical Exam - Constitutional Appears: Non-toxic, No Acute Distress - Head Exam Head Exam: ATRAUMATIC, NORMOCEPHALIC - Eye Exam Eye Exam: EOMI, PERRL. absent: Scleral icterus Pupil Exam: PERRL. absent: Miosis, Mydriatic - ENT Exam ENT Exam: Mucous Membranes Moist, Normal Oropharynx - Neck Exam Neck exam: Positive for: Full Rom, Normal Inspection - Respiratory Exam Respiratory Exam: Clear to Auscultation Bilateral. absent: Rales, Rhonchi, Wheezes - Cardiovascular Exam Cardiovascular Exam: RRR, +S1, +S2. absent: Gallop, Rubs - GI/Abdominal Exam GI & Abdominal Exam: Normal Bowel Sounds. absent: Distended, Firm, Guarding, Organomegaly, Rebound, Rigid, Tenderness - Extremities Exam Extremities exam: Positive for: normal inspection, pedal edema - Neurological Exam Neurological exam: Alert - Psychiatric Exam Psychiatric exam: Normal Affect, Normal Mood - Skin Skin Exam: Dry, Intact, Normal Color, Warm Results - Vital Signs Recent Vital Signs: Last Vital Signs Temp 97.7 F 02/27/18 11:57 Pulse 60 02/27/18 11:57 Resp 18 02/27/18 11:57 BP 168/72 H 02/27/18 11:57 Pulse Ox 96 02/26/18 23:01 - Labs Result Diagrams: 02/26/18 12:30 02/26/18 12:30 Labs: Laboratory Results - last 24 hr 02/26/18 02/26/18 02/26/18 12:10 12:30 12:30 WBC 7.3 RBC 4.53 Hgb 14.2 Hct 42.7 MCV 94.3 MCH 31.3 MCHC 33.3 RDW 12.9 Plt Count 166 MPV 11.0 Gran % 63.2 Lymph % (Auto) 25.4 Jack % (Auto) 9.0 H Eos % (Auto) 2.1 Baso % (Auto) 0.3 Gran # 4.62 Lymph # (Auto) 1.9 Jack # (Auto) 0.7 H Eos # (Auto) 0.2 Baso # (Auto) 0.02 PT INR APTT Sodium 138 Potassium 3.8 Chloride 104 Carbon Dioxide 30 Anion Gap 8 L BUN 17 Creatinine 0.9 Est GFR ( Amer) > 60 Est GFR (Non-Af Amer) > 60 POC Glucose (mg/dL) Random Glucose 198 H Calcium 10.1 Magnesium 1.8 Total Bilirubin 1.8 H AST 11 L ALT 19 Alkaline Phosphatase 119 Troponin I < 0.01 Total Protein 6.6 Albumin 3.5 Globulin 3.2 Albumin/Globulin Ratio 1.1 Urine RBC 0 - 2 Urine WBC 2 - 5 Ur Epithelial Cells 6 - 8 Urine Bacteria Many 02/26/18 02/26/18 02/27/18 12:30 23:09 07:06 WBC RBC Hgb Hct MCV MCH MCHC RDW Plt Count MPV Gran % Lymph % (Auto) Jack % (Auto) Eos % (Auto) Baso % (Auto) Gran # Lymph # (Auto) Jack # (Auto) Eos # (Auto) Baso # (Auto) PT 18.2 H INR 1.57 APTT 36.1 Sodium Potassium Chloride Carbon Dioxide Anion Gap BUN Creatinine Est GFR ( Amer) Est GFR (Non-Af Amer) POC Glucose (mg/dL) 183 H 168 H Random Glucose Calcium Magnesium Total Bilirubin AST ALT Alkaline Phosphatase Troponin I Total Protein Albumin Globulin Albumin/Globulin Ratio Urine RBC Urine WBC Ur Epithelial Cells Urine Bacteria 02/27/18 02/27/18 08:40 11:45 WBC RBC Hgb Hct MCV MCH MCHC RDW Plt Count MPV Gran % Lymph % (Auto) Jack % (Auto) Eos % (Auto) Baso % (Auto) Gran # Lymph # (Auto) Jack # (Auto) Eos # (Auto) Baso # (Auto) PT 18.1 H INR 1.56 APTT Sodium Potassium Chloride Carbon Dioxide Anion Gap BUN Creatinine Est GFR ( Amer) Est GFR (Non-Af Amer) POC Glucose (mg/dL) 211 H Random Glucose Calcium Magnesium Total Bilirubin AST ALT Alkaline Phosphatase Troponin I Total Protein Albumin Globulin Albumin/Globulin Ratio Urine RBC Urine WBC Ur Epithelial Cells Urine Bacteria Assessment & Plan - Assessment and Plan (Free Text) Assessment: 82 year old female with PMH of Lymphocytic colitis on Budesonide, CVA on Coumadin, HTN, DM, and Hypothyroidism presenting with dizziness. GI consultation for microscopic colitis management. Prior colonoscopy 09/2015 showed lymphocytic colitis, two 5mm tubular adenomas, descending/sigmoid diverticulosis, and internal hemorrhoids. Plan: -continue maintenance Budesonide for microscopic colitis -begin Budesonide 6mg daily to begin dose reduction while inpatient from 9mg daily -Imodium PRN -continue diet as tolerated -avoid NSAIDs -primary team managing dizziness workup <Liam Merritt - Last Filed: 02/27/18 14:37> Meds - Medications Medications: Current Medications Amlodipine Besylate (Norvasc) 5 mg PO DAILY [facility] Last Admin: 02/27/18 10:25 Dose: 5 mg Budesonide (Entocort Ec) 6 mg PO DAILY [facility] Citalopram Hydrobromide (Celexa) 20 mg PO QAM [facility] Last Admin: 02/27/18 10:23 Dose: 20 mg Clonazepam (Klonopin) 0.5 mg PO BID [facility]; Protocol Last Admin: 02/27/18 10:23 Dose: 0.5 mg Insulin Human Regular (Humulin R Low) 0 units SC [facility]; Protocol Last Admin: 02/27/18 12:46 Dose: 2 unit Isosorbide Mononitrate (Imdur) 60 mg PO QAM [facility] Last Admin: 02/27/18 10:25 Dose: 60 mg Levothyroxine Sodium (Synthroid) 112 mcg PO DAILY [facility] Last Admin: 02/27/18 10:23 Dose: 112 mcg Loperamide HCl (Imodium) 2 mg PO Q6H PRN PRN Reason: Diarrhea Non-Formulary Medication (Mirabegron [Myrbetriq]) 50 mg PO DAILY [facility] Warfarin Sodium (Coumadin) 4 mg PO 1800 [facility]; Protocol Stop: 02/27/18 18:01 Results - Vital Signs Recent Vital Signs: Last Vital Signs Temp 97.7 F 02/27/18 11:57 Pulse 60 02/27/18 11:57 Resp 18 02/27/18 11:57 BP 168/72 H 02/27/18 11:57 Pulse Ox 96 02/26/18 23:01 - Labs Result Diagrams: 02/26/18 12:30 02/26/18 12:30 Labs: Laboratory Results - last 24 hr 02/26/18 02/27/18 02/27/18 23:09 07:06 08:40 PT 18.1 H INR 1.56 POC Glucose (mg/dL) 183 H 168 H 02/27/18 11:45 PT INR POC Glucose (mg/dL) 211 H Attending/Attestation - Attestation I have personally seen and examined this patient.: Yes I have fully participated in the care of the patient.: Yes I have reviewed all pertinent clinical information: Yes Notes (Text): 02/27/18 14:32 I have seen and examined patient with GI fellow. Agree with above documentation with the following additions. In brief, this is an 82 year old female with history of microscopic colitis, CVA, HTN, DM, hypothyroidism who presents to hospital with complaint of progressive dizziness for the past one week. She is currently undergoing neurologic workup for symptoms. GI called for evaluation of colitis. She has been maintained on budesonide therapy as outpatient with good results, occasionally she does require the use of supplemental immodium. She otherwise typically has three bowel movements daily without presence of abdominal pain, rectal bleeding, nausea, vomiting, fever/chills. She had a colonoscopy in September 2015 which showed adenomatous colon polyps, diverticular disease, and lymphocytic colitis. Microscopic (lymphocytic) colitis HTN DM Hypothyroidism Dizziness - Diet as tolerated - Follow up neurologic recommendations for ongoing unexplained dizziness, possibly secondary to anti-hypertensive medication - Continue with budesonide therapy, ideally at dose of 6mg PO daily, can increase to 9 mg if patient experiences breakthrough diarrhea - May use immodium PRN for symptomatic relief - No further planned GI interventions, will sign off case. Suggest additional outpatient follow up, please reconsult as necessary, thank you.
[2018-02-27] MEDS ORDERED: Budesonide 3 mg ER Cap PO ONE (13:10)
--- NOTE | 2018-02-27 21:43 | PN ---
DATE: 02/26/2018 SUBJECTIVE: An 82-year-old female admitted to telemetry with a history of frequent falls and dizziness. PHYSICAL EXAMINATION GENERAL: She is alert and oriented x3. VITAL SIGNS: Temperature is 98.7, blood pressure was 146/77, respiratory rate is 18, pulse is 60. LUNGS: Clear. HEART: S1, S2 rhythm. ABDOMEN: Soft with positive bowel sounds. EXTREMITIES: Show no evidence of edema. LABORATORY DATA: PT is 18.1 with an INR of 1.56. Random blood sugar is reported at 168. The patient is awaiting evaluation and followup with Neurology for her dizziness and frequent falls. 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 She has history of colitis and is concerned about the unavailability of medications that she is on here at the hospital, so we will get a consult with her doctor, Dr. Merritt to assess her current meds and management while she is in the hospital. We will adjust her Coumadin with followup of her PT/INR and continue her current meds of amlodipine, Synthroid, Klonopin, Imdur, insulin, and Celexa. Deena Jones MD
[2018-02-28 01:52] VITALS: O2SAT 95
--- NOTE | 2018-02-28 03:49 | CON ---
DATE OF CONSULTATION: 02/27/2018 HISTORY OF PRESENT ILLNESS: This is an 82-year-old white female with past medical history of hypothyroidism, diabetes and dizziness, has been having frequent falls over the last month and dizziness, started couple of weeks ago and continued to have, and patient has been falling. PAST MEDICAL HISTORY: Diabetes, chronic vertigo, hypothyroidism, and also trauma. ALLERGIES: LACTOSE. HOME MEDICATIONS: Norvasc, Klonopin, Celexa, and Synthroid. PHYSICAL EXAMINATION HEENT: Normocephalic, atraumatic. NECK: Supple. NEUROLOGIC: Awake, orientated to self and place. Cranial nerves II through XII were tested. Pupils reactive. EOM intact. Visual field full. No facial asymmetry. Tongue midline. Motor examination: Spontaneous movement of the extremities noted. Lot of bruising over the extremities were seen. DIAGNOSTIC DATA: CAT scan of the head was done, which was reported negative. IMPRESSION AND PLAN: An 82-year-old white female with past medical history of hypertension, diabetes, hypothyroidism, dizziness, and patient has been complaining of weakness, and CAT scan of the head was done, which was reported negative. Workup in progress. We will follow up. René Wisdom MD
[2018-02-28 06:20] LABS: INR 1.75; PROTHROMBIN TIME 20.3 SECONDS (9.4-12.5)
[2018-02-28] MEDS: Insulin Reg-LOW-Coverage SC SCH ×2 (08:47→13:00)
[2018-02-28] MEDS: Insulin Human NPH/Reg 70/30 Vial(3 ml) SC SCH (08:55)
[2018-02-28] MEDS: Levothyroxine 112 MCG TAB PO SCH (09:02)
--- NOTE | 2018-02-28 09:54 | PN ---
DATE: 02/28/2018 SUBJECTIVE: An 82-year-old female admitted to [facility] with a history of unsteady gait, multiple falls. PHYSICAL EXAMINATION: VITAL SIGNS: Her temp is 97.9, her pulse is 61, her blood pressure is 128/93, oxygen sat is 95% on room air, respiratory rate is 19. GENERAL: She is alert and oriented x3. NECK: Supple. LUNGS: Clear. HEART: An S1, S2. ABDOMEN: Obese, soft with positive bowel sounds. EXTREMITIES: Show no evidence of edema. LABORATORY DATA: Her PT this morning is 20.3 with an INR of 1.75, her blood sugar was 175. A urine culture is reported as showing no growth. ASSESSMENT AND PLAN: 1. At the present time, she is on Celexa, Entocort, sliding insulin scale, Imdur, Imodium, Klonopin, Norvasc, Synthroid. Neurological and GI consults are noted and we will adjust the patient's dose of Coumadin for today and follow up the PT/INR. 2. We will await input from Neurology regarding her management. Physical Therapy note has been reviewed and noted. It has been discussed with the patient at this time. 3.Patient has been cleared by Neurology and GI and will take antivert bid 12.5 and f/u out patient. Deena Jones MD MTDRita
[2018-02-28] MEDS ORDERED: Budesonide 3 mg ER Cap PO SCH (10:00)
[2018-02-28 11:01] VITALS: BP 150/83
[2018-02-28 11:27] VITALS: RESP 18; TEMP 97.8
[2018-02-28 14:51] VITALS: PULSE 69
== END 2018-02-28 16:24 | disposition home or self-care (01) ==
LOC: ED 11:21 → ERH 15:40 → 2RSO 23:06
PROVIDERS: ADMIT Internal Medicine; ATTEND Internal Medicine
DX: R42 Dizziness and giddiness (principal); I11.9 Hypertensive heart disease without heart failure; E03.9 Hypothyroidism, unspecified; E11.9 Type 2 diabetes mellitus without complications; E73.9 Lactose intolerance, unspecified; I25.10 Atherosclerotic heart disease of native coronary artery without angina pectoris; Z86.73 Personal history of transient ischemic attack (TIA), and cerebral infarction without residual deficits; K21.9 Gastro-esophageal reflux disease without esophagitis; K52.832 Lymphocytic colitis; K52.839 Microscopic colitis, unspecified; K57.30 Diverticulosis of large intestine without perforation or abscess without bleeding; R29.6 Repeated falls; Z79.4 Long term (current) use of insulin; C44.509 Unspecified malignant neoplasm of skin of other part of trunk; Z90.49 Acquired absence of other specified parts of digestive tract; Z90.710 Acquired absence of both cervix and uterus; Z95.5 Presence of coronary angioplasty implant and graft; Z91.018 Allergy to other foods; Z98.42 Cataract extraction status, left eye; Z98.41 Cataract extraction status, right eye
CPT/HCPCS: 36415; 70450; 70496; 70498; 71045; 80053; 81001; 82948; 83735; 84484; 85025; 85610; 85730; 87081; 87086; 93005; 97116; 97161; 97530; 99285; G0378; G8978; G8979; Q9967

== ENCOUNTER 2018-05-03 18:53 | Inpatient (IN) | payer MEDICARE, BC ==
[2018-05-03 18:56] VITALS: BMI 32.9
--- NOTE | 2018-05-03 19:55 | ED PDOC ---
Arrival/HPI - General Chief Complaint: Dizziness/Lightheaded Time Seen by Provider: 05/03/18 19:20 Historian: Patient - History of Present Illness Narrative History of Present Illness (Text): 05/03/18 19:25 82 year old female, whose past medical history includes hypertension, CVA, chronic vertigo, hypothyroidism, and diabetes type 2, presents to the emergency department complaining of recurrent dizziness and at times feeling like she would pass out.. Patient states that she has been taking her usual meclizine medication but with no relief. Patient denies any visual disturbance, fever, chills, chest pain, shortness of breath, nausea, vomiting, diarrhea, urinary symptoms, back pain, neck pain, headache, dizziness, focal weakness, change in speech, or any other complaints. PMD: Dr. Deena Jones Symptom Onset: Gradual Symptom Course: Unchanged Activities at Onset: Light Context: Home Past Medical History - Provider Review Nursing Documentation Reviewed: Yes - Infectious Disease Hx of Infectious Diseases: None - Tetanus Immunization Tetanus Immunization: Up to Date - Cardiac Hx Cardiac Disorders: Yes Hx Hypertension: Yes - Pulmonary Hx Respiratory Disorders: No - Neurological HX Cerebrovascular Accident: Yes (With cerebellar ataxia) Hx Vertigo: Yes - HEENT Hx HEENT Disorder: Yes Hx Cataracts: Yes (WITH SX) - Renal Hx Renal Disorder: No - Endocrine/Metabolic Hx Diabetes Mellitus Type 2: Yes Hx Hypothyroidism: Yes - Hematological/Oncological Hx Blood Disorders: Yes Hx Shingles: Yes - Integumentary Hx Dermatological Disorder: Yes Hx Eczema: Yes Other/Comment: 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 on radiation therapy - Musculoskeletal/Rheumatological Hx Musculoskeletal Disorders: Yes Hx Falls: Yes Hx Unsteady Gait: Yes (CANE) - Gastrointestinal Hx Gastrointestinal Disorders: Yes (CHOLECYSTECTOMY,APPENDECTOMY,) Hx Gastroesophageal Reflux: Yes - Genitourinary/Gynecological Hx Genitourinary Disorders: No - Psychiatric Hx Psychophysiologic Disorder: Yes Hx Anxiety: Yes Hx Substance Use: No - Surgical History Hx Appendectomy: Yes Hx Cardiac Catheterization: Yes (3 stents) Hx Cholecystectomy: Yes Hx Coronary Stent: Yes Hx Hysterectomy: Yes Other/Comment: TONSILLECTOMY - Anesthesia Hx Anesthesia: Yes Hx Anesthesia Reactions: No Hx Malignant Hyperthermia: No - Suicidal Assessment Feels Threatened In Home Enviroment: No Family/Social History - Physician Review Nursing Documentation Reviewed: Yes Family/Social History: No Known Family HX Smoking Status: Former Smoker Hx Alcohol Use: No Hx Substance Use: No Hx Substance Use Treatment: No Allergies/Home Meds Allergies/Adverse Reactions: Allergies lactose Allergy (Severe, Verified 05/03/18 18:57) DIARRHEA Pork/Porcine Containing Products Allergy (Severe, Verified 05/03/18 18:57) VOMITING Home Medications: Home Meds Medication Instructions Recorded Confirmed Citalopram Hydrobromide [Celexa] 20 mg PO QAM 10/04/15 02/26/18 Insulin Human NPH/Reg [HumuLIN 25 units SC ACBD 10/04/15 02/26/18 70/30 (NPH/Reg)] Isosorbide Mononitrate [Imdur] 60 mg PO QAM 10/04/15 02/26/18 Warfarin Sodium [Jantoven] 2.5 mg PO HS 10/04/15 02/26/18 Budesonide [Entocort EC] 3 cap PO DAILY 09/28/16 02/26/18 Levothyroxine [Synthroid] 112 mcg PO DAILY 09/28/16 02/26/18 amLODIPine [Norvasc] 5 mg PO DAILY 09/28/16 02/26/18 clonazePAM [clonAZEPAM] 0.5 mg PO BID 09/29/16 02/26/18 Loperamide HCl [Anti-Diarrheal] 2 mg PO PRN PRN 02/26/18 02/26/18 Mirabegron [Myrbetriq] 50 mg PO DAILY 02/26/18 02/26/18 Review of Systems - Physician Review All systems were reviewed & negative as marked: Yes - Review of Systems Constitutional: absent: Fevers, Other (Chills) Eyes: absent: Vision Changes Respiratory: absent: SOB Cardiovascular: Syncope (near-syncope). absent: Chest Pain Gastrointestinal: Diarrhea. absent: Nausea, Vomiting Genitourinary Female: absent: Dysuria, Frequency, Hematuria Musculoskeletal: absent: Back Pain, Neck Pain Neurological: Dizziness. absent: Headache, Focal Weakness, Speech Changes Physical Exam Vital Signs Reviewed: Yes Vital Signs Temp Pulse Resp BP Pulse Ox 05/03/18 18:54 97.9 F 72 18 104/43 L 95 Temperature: Afebrile Blood Pressure: Hypotensive Pulse: Regular Respiratory Rate: Normal Appearance: Positive for: Well-Appearing, Non-Toxic, Comfortable Pain Distress: None Mental Status: Positive for: Alert and Oriented X 3 - Systems Exam Head: Present: Atraumatic, Normocephalic Pupils: Present: PERRL Extroacular Muscles: Present: EOMI Conjunctiva: Present: Normal Mouth: Present: Moist Mucous Membranes Neck: Present: Normal Range of Motion Respiratory/Chest: Present: Clear to Auscultation, Good Air Exchange. No: Respiratory Distress, Accessory Muscle Use Cardiovascular: Present: Regular Rate and Rhythm, Normal S1, S2. No: Murmurs Abdomen: No: Tenderness, Distention, Peritoneal Signs Back: Present: Normal Inspection Upper Extremity: Present: Normal Inspection. No: Cyanosis, Edema Lower Extremity: Present: Normal Inspection. No: Edema Neurological: Present: GCS=15, CN II-XII Intact, Speech Normal, Motor Func Grossly Intact, Normal Sensory Function Skin: Present: Warm, Dry, Normal Color. No: Rashes Psychiatric: Present: Alert, Oriented x 3, Normal Insight, Normal Concentration Medical Decision Making ED Course and Treatment: 05/03/18 19:25 Impression: 82 year old female presents complaining of recurrent dizziness and near-syncopal episode today. Plan: -- CT Head w/o contrast -- EKG -- Labs -- CXR -- Reassess and disposition Prior Visits: Notes and results from previous visits were reviewed. Progress Notes: 05/03/18 19:45 EKG shows NSR at 70 BPM with LAHB, nonspecific T-wave changes. Interpreted by me. 05/03/18 22:05 Chest X-ray reviewed, shows no acute processes. 05/04/18 00:[address] Hernandez, covering for Dr. Jones, who is aware and agrees with plan. Pt will go to remote telemetry for near syncope under Dr. Jones' service. 05/04/18 03:50 CT Head: There is normal configuration of sella turcica. There are no intra or extra- axial collections. There is no mass effect or midline shift. There is no evidence of hematoma formation. No hydrocephalus is present. The ventricles are symmetrical. No abnormal calcifications are present. There is diffuse age-appropriate cerebellar and cerebral atrophy with proportionally dilated ventricles and cortical sulci. There are bilateral periventricular and subcortical white matter hypolucencies compatible with mild chronic microvascular disease. Otherwise, no significant focal abnormalities are seen either in the posterior fossa or supratentorial compartment. IMPRESSION: 1. Age-appropriate cerebellar and cerebral atrophy. 2. Mild chronic microvascular disease. 3. No evidence of acute intracranial pathology. Thank you for your kind referral of this patient. Electronically signed on May 04, 2018 3:23:21 AM EST by: Davon Chandler M.D., Certified by ABR, MSK, Neuroradiology - Lab Interpretations I have reviewed the lab results: Yes - RAD Interpretation Radiology Orders: 05/03/18 19:31 HEAD W/O CONTRAST [CT] Stat CHEST PORTABLE [RAD] Stat Art Sales Consultant: ED Physician, Radiologist - EKG Interpretation Interpreted by ED Physician: Yes Type: 12 lead EKG - Scribe Statement The provider has reviewed the documentation as recorded by the Scribe Lance Turner Provider Scribe Attestation: All medical record entries made by the Scribe were at my direction and personally dictated by me. I have reviewed the chart and agree that the record accurately reflects my personal performance of the history, physical exam, medical decision making, and the department course for this patient. I have also personally directed, reviewed, and agree with the discharge instructions and disposition. Disposition/Present on Arrival - Present on Arrival Any Indicators Present on Arrival: No History of DVT/PE: No History of Uncontrolled Diabetes: No Urinary Catheter: No History of Decub. Ulcer: No History Surgical Site Infection Following: None - Disposition Have Diagnosis and Disposition been Completed?: Yes Diagnosis: Near syncope, Dizziness Disposition: HOSPITALIZED Disposition Time: 00:20 Patient Problems: Current Active Problems Problem Status Onset Dizziness Acute Near syncope Acute Condition: STABLE
[2018-05-03 20:39] LABS: HEMOGLOBIN 13.4 g/dL (12.0-16.0); MEAN CELL VOLUME 95.6 fl (80.0-105.0); MEAN CORPUSCULAR HEMOGLOBIN 30.8 pg (25.0-35.0); MEAN CORPUSCULAR HGB CONC 32.2 g/dl (31.0-37.0); RBC 4.35 10^6/uL (3.5-6.1); RED CELL DISTRIBUTION WIDTH 13.3 % (11.5-14.5); WHITE BLOOD COUNT 8.3 10^3/uL (4.5-11.0)
[2018-05-03 21:15] LABS: ALB/GLOB RATIO 1.2 (1.1-1.8); ALBUMIN 3.5 g/dL (3.0-4.8); ALT/SGPT 19 U/L (7-56); AST/SGOT 12 U/L (14-36); BLOOD UREA NITROGEN 20 mg/dL (7-21); CALCIUM 10.6 mg/dL (8.4-10.5); GFR NON-AFRICAN AMERICAN > 60
[2018-05-03 21:26] LABS: TROPONIN I < 0.01 ng/mL
[2018-05-03 21:32] LABS: INR 1.96; PROTHROMBIN TIME 22.6 SECONDS (9.4-12.5)
[2018-05-04] MEDS: Levothyroxine 112 MCG TAB PO SCH (08:15)
[2018-05-04] MEDS: Insulin Reg-LOW-Coverage SC SCH ×4 (08:16→21:59)
--- NOTE | 2018-05-04 09:52 | CT ---
Date of service: 05/03/2018 PROCEDURE: CT HEAD WITHOUT CONTRAST. HISTORY: Vertigo, dizziness. COMPARISON: 07/30/2017, 12/16/2017, 02/26/[address] scans of the head. TECHNIQUE: Axial computed tomography images were obtained through the head/brain without intravenous contrast. Supplemental Coronal and Sagittal projections created and reviewed. Radiation dose: Total exam DLP = <inf_radiation_dlp> mGy-cm. This CT exam was performed using one or more of the following dose reduction techniques: Automated exposure control, adjustment of the mA and/or kV according to patient size, and/or use of iterative reconstruction technique. FINDINGS: HEMORRHAGE: No intracranial hemorrhage. BRAIN: No mass effect or edema. Cortical and cerebellar atrophy, periventricular small vessel disease. Small left thalamic and right caudate nucleus infarcts, old. VENTRICLES: Unremarkable. No hydrocephalus. CALVARIUM: Unremarkable. PARANASAL SINUSES: Unremarkable as visualized. No significant inflammatory changes. MASTOID AIR CELLS: Unremarkable as visualized. No inflammatory changes. OTHER FINDINGS: None. IMPRESSION: No acute intracranial abnormalities. No significant findings to account for the clinical presentation. No significant interval change compared to the prior examination(s). Concordant results (preliminary interpretation) provided by [facility]. Procedure Completed: 22:35. Preliminary Report: Dictated and Authenticated: 03:23 Final Interpretation: 09:48
[2018-05-04] MEDS ORDERED: MYBETRIQ 50MG PO SCH (10:00)
--- NOTE | 2018-05-04 10:16 | RAD ---
Date of service: 05/03/2018 HISTORY: dizzy COMPARISON: 02/26/2018 FINDINGS: LUNGS: No active pulmonary disease. PLEURA: No significant pleural effusion identified, no pneumothorax apparent. CARDIOVASCULAR: Atherosclerotic calcifications identified primarily aortic arch. Cardiomegaly. No evidence of acute, significant cardiovascular disease. OSSEOUS STRUCTURES: No significant abnormalities. VISUALIZED UPPER ABDOMEN: Normal. OTHER FINDINGS: None. IMPRESSION: No active disease. No significant interval change compared to the prior examination(s).
[2018-05-04] MEDS ORDERED: Budesonide 3 mg ER Cap PO SCH (10:30)
[2018-05-04] MEDS ORDERED: BUDESONIDE 3 MG PO SCH (10:37)
[2018-05-04] MEDS: Nystatin 100,000 Units/gm Cream(15 gm) TOP SCH ×2 (10:55→21:58)
[2018-05-04] MEDS: MYBETRIQ 50 MG PO SCH (11:07)
--- NOTE | 2018-05-04 15:23 | HP ---
DATE OF EXAM: 05/04/2018 CHIEF COMPLAINT AND HISTORY OF PRESENT ILLNESS: This is an 82-year-old female who is coming into the hospital because of dizziness. The patient says that she does have a history of vertigo. She also has a history of cerebellar ataxia, secondary hyperparathyroidism, diabetes type 2. She was seeing Dr. Wisdom, she says that she felt like she was going to pass out. The patient has no complaints of any chest pain. No diplopia, no dysarthria. No weakness in the arms or legs. No hallucinations. No depression. No chest pain or shortness of breath. No abdominal pain or back pain. No fever or chills. All other review of symptoms are within normal limits except what is mentioned. PAST MEDICAL HISTORY: 1. Atrial fibrillation on Coumadin. 2. Coronary artery disease. 3. Dyslipidemia. 4. History of right skin cancer with radiation. PAST SURGICAL HISTORY: 1. Cholecystectomy. 2. Appendectomy. 3. Cataract surgery. ALLERGIES: PORK/PORCINE CONTAINING PRODUCTS. SOCIAL HISTORY: Patient is a former smoker. She denies alcohol or drugs. HOME MEDICATIONS: She is on Celexa, insulin 70/30 20 units at breakfast and dinner, Coumadin 2.5 mg, budesonide, Synthroid, amlodipine, clonazepam. FAMILY HISTORY: Noncontributory. PHYSICAL EXAMINATION: VITAL SIGNS: Temperature is 98, pulse of 54, blood pressure is 169/75, respirations 20, height is 5 feet 2 inches, weight is 180 pounds, BMI is 32.9. GENERAL: The patient is lying in bed, comfortable, and in no acute distress. HEENT: Atraumatic and normocephalic. Anicteric sclerae. Moist mucosa. [place] conjunctivae. No oral lesions. NECK: No JVD, anterior and posterior adenopathy, thyromegaly, or bruits. CARDIOVASCULAR: S1 and S2 regular. No murmurs, rubs or gallops. LUNGS: Clear to auscultation bilaterally. No wheezes, rales, or rhonchi. ABDOMEN: Bowel sounds are positive. Soft, nontender and nondistended. No hepatosplenomegaly. No rebound and no guarding EXTREMITIES: No cyanosis, clubbing, or edema. NEUROLOGIC: No facial asymmetry. Tongue is midline. No uvula deviation. Power is 5/5 upper extremities and lower extremities. Sensation intact in upper extremities and lower extremities. The patient was not , also there is dysmetria this present. PSYCHIATRIC: She is awake, alert and oriented x3. No anxiety or depression. She has normal affect. GENITOURINARY: No CVA tenderness. VASCULAR: 2+ pulses in the carotid pulses and pedal pulses. SKIN: No erythema or nodules SPINE: Shows normal curvature. LABORATORY DATA: White count of 8.3, hemoglobin 13.4. INR is 1.96, sodium of 138, potassium 4.5, creatinine 0.8. The patient has a troponin of 0.01. His CT of the head done shows age appropriate cerebellar as cerebral atrophy and mild chronic mitral microvascular disease. EKG shows sinus rhythm at 70. Nonspecific ST changes. Chest x-ray Shows no infiltrates. In the PCP EKG the QTC is 438. ASSESSMENT: 1. Vertigo. 2. Hypothyroidism. 3. Hypertension. 4. Coronary artery disease status post stent. 5. Atrial fibrillation on anticoagulation. 6. Diabetes type 2. PLAN: The patient is currently admitted comfortable. She is going to be admitted to hospital because of vertigo. The patient is going to continue with the Celexa for her anxiety. She is receiving amlodipine for hypertension. The patient is on Synthroid for hypothyroidism. She is on Zofran for nausea. She has she is going to be seen by neurology from Dr. Wisdom with goes up from the ataxia that the patient has. The patient is going to be on a heart-healthy diet. I will continue her anticoagulation. She is mildly subtherapeutic, so I will place her on 3 mg of her Coumadin for her atrial fibrillation. She does take insulin [address] her on her insulin. She says she takes 20 units twice a day. She is on her Klonopin. I will also add Klonopin to her medications. She is on amlodipine for her hypertension, this will be continued. I did speak to Dr. Wisdom who updated me on the patient's past history. We will await input from neurology. Pipo Hernandez MD [facility] # [id number]
--- NOTE | 2018-05-04 15:58 | CON ---
DATE: 05/04/2018 HISTORY OF PRESENT ILLNESS: This is an 82-year-old female with a past medical history of hypertension, dizziness, hypothyroidism, diabetes type 2, came here with the complaint of recurrent dizziness and felt like passing out, did not fall, no head trauma, no change in mental status. Called to evaluate the patient. PAST MEDICAL HISTORY: As above. SOCIAL HISTORY: Does not smoke, does not drink. HOME MEDICATIONS: Warfarin, levothyroxine, Norvasc. and clonazepam. PHYSICAL EXAMINATION VITAL SIGNS: Blood pressure 104/43. HEENT: Normocephalic, atraumatic. NECK: Supple. NEUROLOGIC: Awake, oriented to self and place. Cranial nerves II-XII were tested. Pupils reactive. Spontaneous movement of the extremities noted. Deep tendon reflexes 1+. Plantars downgoing. Sensory appears intact. Cerebellar gait deferred. IMPRESSION AND PLAN: Near syncope . CAT scan of the head was done which was reported negative. No bleed or infarct. Workup in progress. Continue present management. We will follow up. René Wisdom MD
[2018-05-04] MEDS: Insulin Human NPH/Reg 70/30 Vial(3 ml) SC SCH (17:59)
--- NOTE | 2018-05-04 22:21 | CARD ---
APPROVED REPORT Date of service: 05/03/2018 EKG Measurement Heart [id number] <Conclusion> Normal sinus rhythm Left anterior fascicular block Nonspecific T wave abnormality Abnormal ECG
[2018-05-05] MEDS: Insulin Human NPH/Reg 70/30 Vial(3 ml) SC SCH ×2 (08:48→17:59)
[2018-05-05] MEDS: Insulin Reg-LOW-Coverage SC SCH ×3 (08:49→17:59)
[2018-05-05] MEDS: Levothyroxine 112 MCG TAB PO SCH (08:51)
[2018-05-05] MEDS: MYBETRIQ 50 MG PO SCH ×2 (09:39)
[2018-05-05] MEDS: Nystatin 100,000 Units/gm Cream(15 gm) TOP SCH ×2 (09:43→21:24)
[2018-05-05 10:19] LABS: BASO # 0.02 K/mm3 (0.0-2.0); BASO % 0.2 % (0.0-3.0); EOS # 0.2 (0.0-0.7); EOS % 2.2 % (1.5-5.0); GRAN # 5.07 (1.4-6.5); GRAN % 61.5 % (50.0-68.0); HEMOGLOBIN 15.3 g/dL (12.0-16.0); LYMPH # 2.5 (1.2-3.4); LYMPH % 30.6 % (22.0-35.0); MEAN CELL VOLUME 96.7 fl (80.0-105.0); MEAN CORPUSCULAR HEMOGLOBIN 31.1 pg (25.0-35.0); MEAN CORPUSCULAR HGB CONC 32.1 g/dl (31.0-37.0); MONO # 0.5 (0.1-0.6); MONO % 5.5 % (1.0-6.0); RBC 4.92 10^6/uL (3.5-6.1); RED CELL DISTRIBUTION WIDTH 13.1 % (11.5-14.5); WHITE BLOOD COUNT 8.2 10^3/uL (4.5-11.0)
[2018-05-05 10:25] LABS: INR 1.52; PROTHROMBIN TIME 17.6 SECONDS (9.4-12.5)
[2018-05-05 10:37] LABS: ALB/GLOB RATIO 1.2 (1.1-1.8); CALCIUM 11.1 mg/dL (8.4-10.5)
--- NOTE | 2018-05-05 14:34 | CP.PCM.APN ---
Subjective - Date & Time of Evaluation Date of Evaluation: 05/05/18 Time of Evaluation: 09:30 - Subjective Subjective: Pt. seen ambulating to bathroom, RR easy and unlabored, no complaints of dizziness. Review of Systems - Constitutional Constitutional: As Per HPI - EENT Eyes: As Per HPI - Cardiovascular Cardiovascular: As Per HPI - Respiratory Respiratory: As Per HPI - Gastrointestinal Gastrointestinal: As Per HPI - Genitourinary Genitourinary: As Per HPI - Musculoskeletal Musculoskeletal: As Per HPI - Integumentary Integumentary: As Per HPI - Neurological Neurological: Dizziness, Vertigo - Endocrine Endocrine: As Per HPI - Hematologic/Lymphatic Hematologic: As Per HPI Objective - Vital Signs/Intake and Output Vital Signs (last 24 hours): Temp Pulse Resp BP Pulse Ox 97.7 F 53 L 20 133/67 96 05/05/18 08:09 05/05/18 09:44 05/05/18 08:09 05/05/18 09:44 05/05/18 08:09 Intake and Output: 05/05/18 05/05/18 06:59 18:59 Intake Total 240 Balance 240 - Medications Medications: Current Medications Amlodipine Besylate (Norvasc) 5 mg PO DAILY [facility] Last Admin: 05/05/18 09:44 Dose: 5 mg Citalopram Hydrobromide (Celexa) 20 mg PO QAM [facility] Last Admin: 05/05/18 09:38 Dose: 20 mg Clonazepam (Klonopin) 0.5 mg PO Q12 [facility]; Protocol Last Admin: 05/05/18 09:40 Dose: 0.5 mg Home Med (Home Med) 0 unit PO DAILY [facility] Last Admin: 05/05/18 09:39 Dose: 1 unit Home Med (Home Med) 0 unit PO DAILY [facility] Last Admin: 05/05/18 09:39 Dose: 1 unit Home Med (Home Med) 0 unit PO DAILY [facility] Last Admin: 05/05/18 09:39 Dose: Not Given Insulin Human Regular (Humulin R Low) 0 units SC ACHS [facility]; Protocol Last Admin: 05/05/18 13:57 Dose: 1 units Levothyroxine Sodium (Synthroid) 112 mcg PO ACB [facility] Last Admin: 05/05/18 08:51 Dose: 112 mcg Nystatin (Mycostatin Cream) 0 ea TOP Q12 [facility] Last Admin: 05/05/18 09:43 Dose: 1 applic Warfarin Sodium (Coumadin) 3 mg PO HS [facility]; Protocol Last Admin: 05/04/18 21:59 Dose: 3 mg - Labs Labs: 05/05/18 10:00 05/05/18 10:00 PT 17.6 SECONDS (9.4-12.5) H 05/05/18 10:00 INR 1.52 05/05/18 10:00 APTT 39.0 Seconds (25.1-36.5) H 05/03/18 20:50 - Constitutional Appears: Well, Non-toxic - Head Exam Head Exam: NORMAL INSPECTION, NORMOCEPHALIC - Eye Exam Eye Exam: Normal appearance - ENT Exam ENT Exam: Mucous Membranes Moist, Normal Exam - Neck Exam Neck Exam: Full ROM - Respiratory Exam Respiratory Exam: NORMAL BREATHING PATTERN - Cardiovascular Exam Cardiovascular Exam: REGULAR RHYTHM - GI/Abdominal Exam GI & Abdominal Exam: Soft, Normal Bowel Sounds - Rectal Exam Rectal Exam: Deferred - Extremities Exam Extremities Exam: Full ROM, Normal Inspection - Back Exam Back Exam: Full ROM - Neurological Exam Neurological Exam: Alert, Awake, Oriented x3 - Skin Skin Exam: Dry, Intact, Normal Color, Warm Assessment and Plan - Assessment and Plan (Free Text) Assessment: ITS Impressions Chest X-Ray 05/03/18 19:31 IMPRESSION: No active disease. No significant interval change compared to the prior examination(s). Head CT 05/03/18 19:31 IMPRESSION: No acute intracranial abnormalities. No significant findings to account for the clinical presentation. No significant interval change compared to the prior examination(s). Concordant results (preliminary interpretation) provided by [facility]. Procedure Completed: 22:35. Preliminary Report: Dictated and Authenticated: 03:23 Final Interpretation: 09:48 Assessment: 82 year old female, whose past medical history includes hypertension, CVA, chronic vertigo, hypothyroidism, and diabetes type 2, presents to the emergency department complaining of recurrent dizziness and at times feeling like she would pass out.. Patient states that she has been taking her usual meclizine medication but with no relief, currently admitted with near syncope. Plan: 1. Near Syncope Patient evaluated by neuro, cleared from neuro standpoint 2. Bradycardia - Asymptomatic bradycardia, cardiology consult pending.continue to hold beta blockers. PT eval pending, consider DC home after cleared by neuro and cardiology Continue to monitor clinical status and follow closely.
--- NOTE | 2018-05-05 18:09 | CON ---
DATE: 05/05/2018 REQUESTING PHYSICIAN: Dr. Hernandez. REASON FOR CONSULTATION: Near syncope. HISTORY OF PRESENT ILLNESS: This is an 82-year-old woman, known to us with a history of coronary disease, status post remote PCI, cerebrovascular disease with prior TIAs, atrial fibrillation, hypertension, and AV node dysfunction on beta blockers in the past, who was admitted with worsening dizziness. She denies any loss of consciousness. She has a longstanding history of vertigo, has been maintained on meclizine at home. She has a history of diabetes, cerebellar ataxia and secondary hyperparathyroidism. She is seen in remote telemetry. She feels somewhat better with less dizziness and feels back to her baseline. PAST MEDICAL HISTORY: Her past history is notable for the problems mentioned above. She has undergone radiation therapy for skin cancer in the past. She also has had prior cholecystectomy, appendectomy and cataract surgery. CURRENT MEDICATIONS: Her current medications include Celexa, warfarin, Myrbetriq, budesonide, Klonopin, Norvasc, and Synthroid. ALLERGIES: SHE DENIES ANY DRUG ALLERGIES, BUT HAS REACTION TO PORK IN THE PAST. SOCIAL HISTORY: She is a former smoker. She denies alcohol use. FAMILY HISTORY: Both parents are from age-related illness. REVIEW OF SYSTEMS: Ten-point review of systems is otherwise unremarkable. PHYSICAL EXAMINATION: GENERAL: She is an obese, elderly woman. VITAL SIGNS: Her blood pressure is 152/70 with a pulse of 56, in sinus; respirations are 16. She is afebrile. HEENT: Normocephalic, atraumatic. NECK: Supple. No JVD noted. CHEST: Few scattered rhonchi heard. HEART: PMI displaced laterally with soft systolic murmur at lower left sternal border. ABDOMEN: Soft, obese, nontender with active bowel sounds. EXTREMITIES: No edema. SKIN: Warm and dry. PSYCHIATRIC: Normal mood and affect. NEUROLOGIC: No gross motor or sensory deficits noted. DIAGNOSTIC DATA: White count 8.3. Hemoglobin and hematocrit of 13.4 and 41.6 with a platelet count of 168,000. Potassium 4.5, BUN and creatinine of 20 and 0.8. Troponin is negative. Glucose ranges from 160-240. Electrocardiogram reveals sinus rhythm with a left anterior hemiblock and nonspecific ST-T abnormalities. No advanced conduction disease is seen. Chest x-ray reveals increased cardiac silhouette with clear lung med[place]. CT of the head revealed age-related changes. IMPRESSION: Worsened dizziness appears due to vertigo and cerebellar ataxia, no clear evidence of cardiac component. Dizziness does persist in the presence of an acceptable heart rhythm. She has had excessive bradycardia in the past with beta-bess use and obviously negative chronotropic agents should be avoided. From a cardiac standpoint, no further workup appears necessary at the present time. Consideration could be given to addition of midodrine and/or Florinef as well as the use of compression stockings. Thank you for this consultation. We will be happy to see as needed. Jose Paulson MD
--- NOTE | 2018-05-05 20:22 | PN ---
DATE: 05/05/2018 SUBJECTIVE: This is an 82-year-old female who was admitted to [facility] for a near-syncopal episode and is currently being followed by Neurology, and a Cardiology consult has been requested. OBJECTIVE: VITAL SIGNS: Show a temperature of 97.7, pulse is 53, blood pressure is 133/66, oxygen sat is reported 96% on nasal cannula. GENERAL: She is alert and oriented x3. LUNGS: Show diminished breath sounds at the bases. HEART: Has S1, S2 rhythm. ABDOMEN: Soft, obese, positive bowel sounds. EXTREMITIES: Show no evidence of edema. LABORATORY DATA: Shows a WBC of 8.2, RBC 4.92, hemoglobin 15.3, hematocrit 47.6, platelet count is 156. PT is 17.6 with an INR of 1.52. Chemistry shows a sodium of 138, potassium 4.4, chloride 102, the BUN is 20, the creatinine is 1.1. Her random blood sugar was 209. Calcium is 11.1, total bilirubin is 1.9. AST is 12, ALT is 17, alkaline phosphatase is 135. Currently, the patient was placed on Antivert by Neurology for her lightheadedness and dizziness. She is on Celexa, Coumadin, Entocort, Myrbetriq, Klonopin, Norvasc, Synthroid, and Mycostatin for rash. We will get a physical therapy evaluation, wait for Cardiology's input as the patient was reported to have a bradyarrhythmia, and she is on fingerstick coverage with her insulin and get an Endocrinology consult regarding her diabetes. Deena Jones MD
[2018-05-05] MEDS: Insulin Lispro (humaLOG) LOW Coverage SC SCH (21:26)
--- NOTE | 2018-05-05 22:47 | CON ---
DATE: 05/05/2018 REASON FOR CONSULTATION: Hypercalcemia. HISTORY OF PRESENT ILLNESS: An 82-year-old lady was admitted on 05/04/2018 because of dizziness. The patient reports that she felt very lightheaded and fell at home. Did not lose any consciousness. She does have a history of vertigo. She also has a history of cerebellar ataxia, primary hyperparathyroidism, and NIDDM. The patient denies any nausea or vomiting. She denies any diarrhea. She denies any chills or fevers. She denies any cough. In the emergency room, her initial blood pressure was somewhat low 104/43. Her initial blood work showed a calcium of 10.6 in the emergency room. Her albumin was 3.5. Corrected calcium was about 10.9. Consultation is requested for hypercalcemia. PAST MEDICAL AND SURGICAL HISTORY: Atrial fibrillation, CAD, NIDDM, hyperlipidemia, cerebellar disease, vertigo, and hypothyroidism. FAMILY HISTORY: Noncontributory. SOCIAL HISTORY: No smoking, alcohol use, no IV drug abuse. ALLERGIES: PENICILLIN. HOME MEDICATIONS: Klonopin, amlodipine 5, Coumadin 2.5, Synthroid, citalopram, and loperamide. REVIEW OF SYSTEMS: A 12 systems are reviewed, pertinent positives are mentioned in the history of presenting illness, rest is unremarkable. PHYSICAL EXAMINATION GENERAL: Obese, elderly lady, seen in her room, currently asymptomatic. VITAL SIGNS: Blood pressure 124/84, heart rate 76, respiratory rate 20, temperature 97 HEENT: Normocephalic, atraumatic, positive pallor. NECK: Supple, no JVD. LUNGS: Bilateral equal entry, bilateral equal expansion, no rales. CARDIAC: S1 and S2, regular rate and rhythm, no murmur, no rub. ABDOMEN: Obese, distended, soft, nontender, bowel sounds present. EXTREMITIES: Trace lower extremity edema. INTAKE AND OUTPUT: 3600/not charted. LABORATORY DATA: WBC 8.2, hemoglobin 15, hematocrit 47.6, platelets 156. Sodium 138, potassium 4.4, chloride 102, CO2 of 32, BUN 20, creatinine 1.1, glucose 209, calcium 11.1, total bili 1.9, AST 12, ALT 17, albumin 4. CURRENT MEDICATIONS: Meclizine 25 b.i.d., Celexa 20, Coumadin 5, insulin, Klonopin, amlodipine 5, and Synthroid 112. ASSESSMENT AND PLAN: 1. Hypercalcemia, the patient has a history of primary hyperparathyroidism. 2. Dizziness, lightheadedness? orthostatic hypotension. 3. Supine hypertension. 4. Noninsulin-dependent diabetes mellitus. 5. Anxiety. 6. Elevated bilirubin. PLAN: 1. Check vital signs in 3 positions. 2. Continue amlodipine 5 mg daily. 3. Monitor fingersticks and continue insulin coverage. 4. Continue physical therapy. Trinh Rmaos MD
--- NOTE | 2018-05-06 01:34 | CON ---
DATE: 05/05/2018 ENDOCRINOLOGY CONSULTATION ROOM: 366. HISTORY OF PRESENT ILLNESS: This is an 82-year-old female with known history of type 2 diabetes and hypertension, presenting here with progressively worsening dizziness and lightheadedness with near syncopal and syncopal episodes worse in the last few days prior to admission and is being referred now for diabetic evaluation and management. PAST MEDICAL HISTORY: History of type 2 insulin-requiring diabetes on a premixed insulin regimen, using Humulin 70/30 taken as 25 units b.i.d.; history of hypothyroidism, on levothyroxine, taking 112 mcg daily; history of hypertension and dyslipidemia; history of chronic vertigo as noted; history also of a previous CVA with no residual weakness noted. FAMILY HISTORY: Positive for hypertension and diabetes. SOCIAL HISTORY: The patient has a supportive family. No known substance use. REVIEW OF SYSTEMS: As mentioned above. Admits to generalized body weakness with episodic bouts of dizziness and lightheadedness, worse on the day of admission with supervening near syncopal episodes as noted. No chest pains or palpitations. Her oral intake has been variable with occasional dyspepsia and vague upper abdominal pains. No recent alterations of the bowel and urinary patterns. PHYSICAL EXAMINATION: GENERAL: This is an average built female, in no apparent distress. VITAL SIGNS: Blood pressure of 140/80; pulse of 100 beats per minute, regular; temperature 98; respirations 20; height is 5 feet 2 inches; weight is 180 pounds. HEENT: Head, normocephalic. Eyes, anicteric with pink conjunctivae. Fundoscopy not possible at this time. Ears, nose and throat, otherwise normal. NECK: Supple. Thyroid gland is normal size. No carotid bruits or any cervical adenopathy. CARDIOPULMONARY: Some adynamic precordium. S1, S2 are rapid and regular. LUNGS: Clear to auscultation. ABDOMEN: Flat, soft with positive bowel. EXTREMITIES: No peripheral edema. Pulses are +2 bilaterally. LABORATORY DATA: Chemistries showed a BUN of 20, sodium 138, potassium 4.4, chloride 102, CO2 of 32, glucose 209, and creatinine 1.1. Her glucose levels have ranged from 147-210 mg/dL. ASSESSMENT: This is an 82-year-old female with uncontrolled and decompensated type 2 insulin-requiring diabetes, presenting here with progressively worsening dizziness and lightheadedness with supervening near syncopal episode and syncope, and is now being admitted for further neurologic evaluation and management and is being referred also for diabetic followup and management. PLAN OF MANAGEMENT: We will modify her current insulin coverage scale to a low-dose algorithm using Humalog insulin to obviate hypoglycemia and detailed orders have been given. We will also initiate a lower dose of the Humulin 70/30 given as a premixed insulin with 12 units before breakfast and 8 units before dinner as ordered. We will titrate incrementally to optimize metabolic control. A hemoglobin A1c will be done to ascertain her prior glycemic control. Baseline thyroid function studies will also be undertaken, and we will adjust her levothyroxine dose accordingly. We will follow and advise accordingly. Diann Moreno MD
[2018-05-06 07:03] LABS: INR 1.71; PROTHROMBIN TIME 19.9 SECONDS (9.4-12.5)
[2018-05-06 07:28] LABS: ALB/GLOB RATIO 1.2 (1.1-1.8); ALBUMIN 4.1 g/dL (3.0-4.8); ALT/SGPT 17 U/L (7-56); AST/SGOT 12 U/L (14-36); BLOOD UREA NITROGEN 22 mg/dL (7-21); CALCIUM 11.4 mg/dL (8.4-10.5); GFR NON-AFRICAN AMERICAN 53
[2018-05-06 07:31] LABS: T4 8.9 ug/dL (5.5-11.0)
--- NOTE | 2018-05-06 08:13 | PN ---
DATE: 05/05/2018 CHIEF COMPLAINT: Follow up for dizziness. HISTORY OF PRESENT ILLNESS: The patient was seen and examined at bedside, dizziness is much better. She is no longer passing out. Will recommend that she be on meclizine 25 p.o. b.i.d. for underlying vertigo and continue with her Flexeril for her anxiety. She is bradycardic throughout, which may need a Cardiology follow up in regards to that, but she is clinically stable from neurological standpoint. CAT scan of the head showed no acute abnormalities. PAST MEDICAL HISTORY: AFib on Coumadin, coronary artery disease, dyslipidemia, history of dry skin cancer with radiation. PAST SURGICAL HISTORY: Cholecystectomy, appendectomy, cataract surgery. ALLERGIES: PORK/PORCINE CONTAINING PRODUCTS. SOCIAL HISTORY: Former smoker, no illicit drug use, smoking, or ETOH abuse. HOME MEDICATION: Reviewed by nurse's reconciliation sheet. FAMILY HISTORY: Noncontributory. CURRENT PHYSICAL EXAMINATION: VITAL SIGNS: Temperature 97.7, pulse rate of 82, blood pressure 132/66, respiratory rate 20, oxygen saturation 96% on room air. GENERAL: The patient is seen up in the bed, in no acute distress. HEENT: Atraumatic, normocephalic. PERRLA. Extraocular muscles are intact. NECK: Supple. No JVD. No adenopathy noted. LUNGS: Clear to auscultation. No adventitious sounds. HEART: Bradycardic. S1 and S2, present. No murmurs, rubs, or gallops. ABDOMEN: Soft, nontender, nondistended. Bowel sounds are present. EXTREMITIES: No clubbing. No cyanosis. Peripheral pulses are 2+ felt bilaterally. NEUROLOGIC: The patient is alert, oriented to person, place, month and year. Speech is fluent without any errors. Cranial nerves II through XII intact. Motor: Moves all extremities equally. No pronator drift seen. Sensory Exam: ____ light touch to pinprick up to the calves bilaterally. Decreased vibration of the toes. DTRs are 2+ throughout, 1 at both the knees and ankles. Coordination: [id number] intact. No dysmetria noted. Gait is deferred for now. LABORATORY DATA: Sodium is 138, potassium 4.4, chloride 102, carbon dioxide is 32, BUN of 25 and creatinine 1.1, and random glucose 109. IMPRESSION: Vertigo, positional type with underlying bradycardia causing dizziness, associated diabetes and mild diabetic peripheral neuropathy. RECOMMENDATIONS: At this time recommend: 1. Meclizine 25 mg p.o. twice a day for underlying vertigo and as well as outpatient vestibular therapy. 2. Avoid any beta blockers since she is bradycardic and which can be adding to her dizziness as well, will need to follow with Cardiology. 3. Physical therapy and occupational therapy evaluation and continue for underlying atrial fibrillation, for stroke prevention. Thank you for this followup. Raul Wisdom MD
[2018-05-06] MEDS: Insulin Human NPH/Reg 70/30 Vial(3 ml) SC SCH (08:48)
[2018-05-06] MEDS: Insulin Lispro (humaLOG) LOW Coverage SC SCH ×4 (08:48→22:11)
[2018-05-06] MEDS: Levothyroxine 112 MCG TAB PO SCH (08:49)
[2018-05-06] MEDS: BUDESONIDE 3 MG PO SCH (10:13)
[2018-05-06] MEDS: MYBETRIQ 50 MG PO SCH (10:14)
[2018-05-06] MEDS: Nystatin 100,000 Units/gm Cream(15 gm) TOP SCH (10:14)
--- NOTE | 2018-05-06 10:45 | PN ---
DATE: 05/06/2018 SUBJECTIVE: This is an 82-year-old female sitting on the bed comfortably this morning. Nursing staff relates that her blood pressures are running a bit high this morning when they took it. Manual blood pressure at this time is 178/88. PHYSICAL EXAMINATION: GENERAL: She is alert and oriented x3. She says that the dizziness has subsided a bit. HEART: S1, S2 rhythm. LUNGS: Clear. ABDOMEN: Obese, soft with positive bowel sounds. SKIN: There is a rash under the breasts being treated. EXTREMITIES: Show no evidence of edema. LABORATORY DATA: PT of 19.9 with an INR of 1.7 and a chemistry this morning which shows normal electrolytes. Her BUN is 22 and creatinine is 1. Random blood sugar was 149. Her calcium is 11.4, total bilirubin is now decreased of 1.7, alkaline phosphatase is 143. TSH is 0.24, magnesium is 1.9. Currently, the patient is on Antivert 25 mg b.i.d., Celexa 20 mg in the morning. She is on Myrbetriq, Entocort for colitis history. She is on Humalog fingerstick coverage. She is on Klonopin 0.5 b.i.d., nystatin powder for rash, Norvasc 5 mg daily, Synthroid 112 mcg daily and she is on Coumadin. ASSESSMENT AND PLAN: 1. She is currently being followed by Endocrinology for her diabetes and her Synthroid. We will follow the patient and adjust medications as per Dr. Moreno. 2. She has been seen by Dr. Ramos for her elevated calcium which she remarks that its value for 10 corrected. She has been seen by Cardiology who at this time feels that there is no indication for any cardiac intervention and is being followed by Neurology for her dizziness and vertigo. She has a history of ataxic gait. She has been seen by physical therapy with a recommendation for transitional care unit and we will make a request. The patient has had recurrent episodes of unsteady gait with falling. transitional care unit would be beneficial for this patient. We will continue to monitor the patient closely and follow her labs and continue care as per the individual consultants. Deena Jones MD
--- NOTE | 2018-05-06 12:49 | CP.PCM.PCO ---
Assessment/Plan Progress Note - Assessment/Plan Assessment (Free Text): Ki Patten DO, PGY-2: House Doctor Patient was seen and evaluated at bedside for complaint of back pain. At the time of my examination the patient reported having 0/10 pain, and reported that her back pain had resolved. She denied any associated numbness, tingling, or weakness. ON exam the patient had no point tenderness to palpation of the cervical and thoracic spine and was able to move all extremities without difficulty. She reports the pain she experienced overnight was related to moving her TV monitor to the side of the bed. She requested for a trial with Acetaminophen. The cased was discussed Dr. Deena Jones who reiterated the pat ient's initial complaints of pain in the back and agreed with a trial of 650 mg of Acetaminophen to be given PO. The nurse was informed to contact the house physician should the patient's pain persist or evolve. - Problems Patient Problems: Problem List (Active/Current) Problem Status Onset Code Dizziness Acute R42 Near syncope Acute R55
[2018-05-06] MEDS ORDERED: Insulin Human NPH/Reg 70/30 Vial(3 ml) SC SCH (16:30)
[2018-05-06] MEDS: Nystatin 100,000 Units/gm Topical Pow(15 gm) TOP SCH (18:13)
--- NOTE | 2018-05-06 19:11 | PN ---
DATE: 05/06/2018 SUBJECTIVE: The patient is currently seen. She has been transferred to telemetry. The patient appears comfortable. She does have hypercalcemia, previous workup was positive for primary hyperparathyroidism. Her calcium level is currently at 11.4. The patient states she would drink plenty of fluids to remain well hydrated. The patient apparently has never been on Sensipar for treatment of hypercalcemia secondary to primary hyperparathyroidism. MEDICATIONS: Medication list reviewed. The patient is currently on Antivert, Celexa, Coumadin, Myrbetriq, budesonide, sliding scale insulin, Klonopin, Norvasc, nystatin, and Synthroid. OBJECTIVE: INTAKE/OUTPUT: Intake is 3840 and output is not charted. VITAL SIGNS: Last blood pressure recorded on 3 hour was 172/89 and I do not see orthostatic blood pressure checks. Blood pressure yesterday was in the 120 systolic range with diastolics in the 60 to 80 range. Pulse 56, temperature 97.6, respiratory rate 20 with a pulse ox of 95%. HEENT: Shows her to be normocephalic, atraumatic. Conjunctivae are pink. Sclerae nonicteric. NECK: Supple. No neck vein distention. CHEST: Clear to auscultation and percussion. No rales, rhonchi or wheezing. CARDIOVASCULAR: Shows a regular rate and rhythm without audible murmurs, rubs or gallops. ABDOMEN: Mild obesity. Nondistended. Soft. Bowel sounds are normal. EXTREMITIES: Show trace nonpitting lower extremity edema. No cyanosis or clubbing. LABORATORY DATA AND IMAGING STUDIES: CBC; white blood cell count yesterday 8.2 with a hemoglobin of 15.3, platelet count is 156,000. Coags, PT of 19.9 with an INR of 1.71. Chemistries showed normal electrolytes. BUN 22 with a creatinine of 1.0. Calcium today is 11.4 up from 10.6 on admission. Albumin level was 4.1. Mild elevation of bilirubin at 1.7. Glucose control 169. TSH level was 0.24 with a T4 of 8.9. ASSESSMENT: 1. Hypercalcemia in a patient with a past history of primary hyperparathyroidism. As discussed with Dr. Jones, if the patient is unable to keep her calcium level in the 10 to 11 range with hydration, she might benefit from Sensipar. This medication is used off label for treatment of primary hyperparathyroidism. 2. History of dizziness and lightheadedness. The patient has no complaints of this today. Unfortunately, I do not see any orthostatic blood pressures that were ordered. She does appear to be mildly hypertensive and the patient may be restarted back on amlodipine. 3. History of [id number] diabetes mellitus. The patient remains on sliding scale insulin. At home, she was on a combination of long-acting and short-acting insulin. 4. History of atrial fibrillation on chronic anticoagulation. The patient is on Coumadin. Her last INR was 1.7. 5. Hypothyroidism. The patient remains clinically and biochemically euthyroid. She remains on thyroid replacement therapy. PLAN: 1. Discussed with staff on telemetry 2R. The patient will have orthostatic blood pressures checked on a regular basis. 2. Agree with restarting amlodipine. 3. Continue to monitor calcium on a daily basis. The patient agrees to take inadequate amounts of fluid in lieu of placing an IV. Her calcium level trends higher than 12 into the 12/13 range. The patient would be a candidate for Sensipar therapy to be used to lower her calcium levels. 4. Uncertain if the patient had any other evaluations of her parathyroid regarding an endocrinology evaluation for possible other treatments for hyperparathyroidism, parathyroid hyperplasia versus parathyroid adenoma. 5. Continue to monitor blood pressure closely. Agree with restarting calcium channel bess therapy. 6. Continue to monitor glucose carefully. 7. Continue to follow calcium on a daily basis and discussion regarding further evaluation of her hypercalcemia as noted above and discussed with Dr. Jones. Lit Alexis MD
--- NOTE | 2018-05-07 04:46 | PN ---
DATE: 05/06/2018 ENDOCRINOLOGY FOLLOWUP NOTE LOCATION: Room 264. SUBJECTIVE: This is an 82-year-old female with known history of type 2 insulin requiring diabetes, presenting here with severe bouts of dizziness and lightheadedness. She is now being followed up closely for metabolic management. Her glycemic levels are fluctuating, but improved and the glucose levels overnight have ranged from 149 to 180 and 252 mg/dL. LABORATORY DATA: Her chemistries showed a BUN of 22, sodium 139, potassium 4.1, chloride 102, CO2 30, glucose 169, creatinine 1. ASSESSMENT AND PLAN: So at this time, we will titrate and increase her premixed insulin regimen to Humulin 70/30 given as 20 units before breakfast and 14 units before dinner, to start today as ordered. We will continue the low dose correction scale using Humalog insulin as given. We will obtain serial chemistries and supplement accordingly as needed. We will also continue the same levothyroxine given as 112 mcg daily as ordered. We will obtain serial chemistries and supplement accordingly as needed. We will follow up with you. Diann Moreno MD
[2018-05-07] MEDS: Insulin Lispro (humaLOG) LOW Coverage SC SCH ×4 (07:59→21:30)
[2018-05-07] MEDS: Insulin Human NPH/Reg 70/30 Vial(3 ml) SC SCH ×2 (08:04→18:28)
[2018-05-07] MEDS: Levothyroxine 112 MCG TAB PO SCH (08:04)
[2018-05-07 09:06] LABS: INR 2.65; PROTHROMBIN TIME 31.1 SECONDS (9.4-12.5)
[2018-05-07 09:09] LABS: ALB/GLOB RATIO 1.2 (1.1-1.8); ALBUMIN 3.8 g/dL (3.0-4.8); ALT/SGPT 18 U/L (7-56); AST/SGOT 11 U/L (14-36); BLOOD UREA NITROGEN 20 mg/dL (7-21); CALCIUM 10.8 mg/dL (8.4-10.5); GFR NON-AFRICAN AMERICAN > 60
[2018-05-07] MEDS: MYBETRIQ 50 MG PO SCH (09:34)
[2018-05-07] MEDS: Nystatin 100,000 Units/gm Topical Pow(15 gm) TOP SCH ×4 (09:36→19:55)
[2018-05-07] MEDS: BUDESONIDE 3 MG PO SCH (09:39)
--- NOTE | 2018-05-07 11:00 | RAD ---
Date of service: 05/07/2018 PROCEDURE: Cervical Spine Radiographs. HISTORY: Pain. COMPARISON: 12/16/2017 FINDINGS: BONES: Alignment maintained. No fracture. Dens Intact. DISC SPACES: Normal. SOFT TISSUES: Normal. No prevertebral soft tissue swelling. OTHER FINDINGS: None. IMPRESSION: Normal cervical spine radiographs
--- NOTE | 2018-05-07 11:14 | RAD ---
Date of service: 05/07/2018 HISTORY: back pain COMPARISON: No prior. FINDINGS: BONES: Alignment maintained. No fracture. DISC SPACES: Multilevel disc degeneration. SOFT TISSUES: Normal. OTHER FINDINGS: None. IMPRESSION: No acute findings. No evidence of compression fracture
--- NOTE | 2018-05-07 11:15 | RAD ---
Date of service: 05/07/2018 PROCEDURE: Radiographs of the Lumbar Spine. HISTORY: back pain COMPARISON: No prior. FINDINGS: BONES: Normal alignment. No listhesis. No fracture. DISC SPACES: Unremarkable. OTHER FINDINGS: Aortic calcification IMPRESSION: Unremarkable radiographs of the lumbar spine.
--- NOTE | 2018-05-07 11:19 | PN ---
DATE: 05/07/2018 SUBJECTIVE: The patient is seen lying in bed on telemetry. She feels somewhat better. She states her dizziness has improved. On telemetry monitoring, she shows no evidence of advanced AV block and intermittent sinus bradycardia. Current medications include Antivert 25 mg b.i.d., Celexa 20 mg daily, Myrbetriq, Klonopin, Norvasc 5 mg daily, and Synthroid 112 mcg daily. PHYSICAL EXAMINATION: GENERAL: She is an obese elderly woman. VITAL SIGNS: Her blood pressure is 142/70 with a pulse of 60 in sinus, respirations are 16. She is afebrile. HEENT: Normocephalic, atraumatic. CHEST: Few scattered rhonchi heard. HEART: PMI displaced laterally with systolic murmur at lower left sternal border. ABDOMEN: Soft, obese, nontender with normoactive bowel sounds. EXTREMITIES: No edema. DIAGNOSTIC DATA: INR is 2.65. IMPRESSION: 1. 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 2. Coronary artery disease status post remote percutaneous coronary intervention. 3. Paroxysmal atrial fibrillation. 4. History of prior transient ischemic attack. 5. Rest of problems as noted. RECOMMENDATIONS: Her current medications should continue, chronic warfarin therapy should be resumed. Beta blockers are being avoided given her prior history of excessive bradycardia with their use. From a cardiac standpoint, no further workup is planned and she is stable from a cardiac standpoint for discharge home whenever medically cleared. We will be happy to see in the future as needed. Jose Paulson MD
--- NOTE | 2018-05-07 14:55 | CP.PCM.PCO ---
Physician Communication Note - Physician Communication Note Physician Communication Note: pt stable, walked to bathroom, is for TCU tommorow
--- NOTE | 2018-05-07 18:20 | PN ---
DATE: 05/07/2018 SUBJECTIVE: This is an 82-year-old female resting comfortably in bed this morning. Nursing staff relates that there were no particular problems during the night. PHYSICAL EXAMINATION: NECK: Supple. LUNGS: Clear. ABDOMEN: Obese and soft with positive bowel sounds. EXTREMITIES: Show no evidence of edema. She has no tenderness across her chest or back. She is receiving nystatin powder for rash under the breasts and in the abdominal . CURRENT MEDICATIONS: Consists of Antivert 25 mg b.i.d., Celexa 20 mg daily, warfarin based upon the PT/INR, she is on Myrbetriq for urinary continence, Entocort for colitis, sliding insulin scale for her diabetes, Klonopin for anxiety, Norvasc 5 mg daily for blood pressure, Synthroid 112 mcg daily for hypothyroid disease. She is being followed by Cardiology with a history of bradyarrhythmia, Endocrinology Dr. Moreno. Dr. Alexis following the patient for hyperparathyroidism. She will get x-rays of the cervical spine, thoracic and lumbar spine as she is complaining of some discomfort, I believe it is related to position in the bed. LABORATORY DATA: Showed a PT of 31.1 with an INR of 2.65. Chemistry showed normal electrolytes. The BUN is 20, creatinine is 0.9, random blood sugar is 153, and her calcium this morning is 10.8. Her alkaline phosphatase is 128. ASSESSMENT AND PLAN: She is continued to be monitored. She is receiving occupational and physical therapy. I have spoken to physical therapy recommending that the patient thought to be ambulating with a wide-based cane. She has a history of cerebellar ataxia, insulin-dependent diabetes, anxiety and depression, hypertension, fungal rash, and colitis. We will follow the patient closely at this time. All clinical findings to date have been explained to the family as well to the daughter and will continue current care. Deena Jones MD
--- NOTE | 2018-05-07 22:05 | PN ---
DATE: 05/07/2018 SUBJECTIVE: The patient is seen lying in bed. She is awake. She is alert. She is comfortable. She denies any dizziness at present. She denies any lightheadedness. OBJECTIVE: GENERAL: Obese elderly lady lying in bed. VITAL SIGNS: Blood pressure 164/72, heart rate 54, respiratory rate 18, and temperature 98.7. HEENT: Normocephalic and atraumatic. Positive pallor. NECK: Supple. No JVD. LUNGS: Bilateral equal air entry, bilateral equal expansion. CARDIAC: S1 and S2, regular rate and rhythm. No murmur. No rub. ABDOMEN: Obese, distended, soft, and nontender. Bowel sounds present. EXTREMITIES: No lower extremity edema. LABORATORY DATA: WBC 8, hemoglobin 15, hematocrit 47, and platelets 156. Sodium 140, potassium 4.1, chloride 105, CO2 of 31, BUN 20, creatinine 0.9, glucose 153, calcium 10.8, phosphorus 2.6, and magnesium 1.8. Albumin 3.8. PTH 150, and calcium 10.8. CURRENT MEDICATIONS: Meclizine 25 b.i.d., Celexa, insulin, Klonopin, amlodipine 5, Synthroid, Tylenol, and Coumadin 2.5. ASSESSMENT: 1. Primary hyperparathyroidism, mild hypercalcemia. 2. Dizziness, lightheadedness ?postural hypotension. 3. Bve-xgernll-xkvfgtqqt diabetes mellitus. 4. Atrial fibrillation. 5. Hypothyroidism. PLAN: 1. Continue amlodipine 5 mg since the patient does have supine hypertension. 2. Orthostatic vital signs not documented. 3. Mild hypercalcemia, asymptomatic, no indication for Sensipar, I will continue to monitor. 4. Monitor fingersticks and continue insulin coverage. 5. Physical therapy. Trinh Ramos MD
[2018-05-08 07:15] LABS: BASO # 0.02 K/mm3 (0.0-2.0); BASO % 0.3 % (0.0-3.0); EOS # 0.2 (0.0-0.7); EOS % 2.9 % (1.5-5.0); GRAN # 3.5 (1.4-6.5); GRAN % 56.5 % (50.0-68.0); HEMOGLOBIN 14.7 g/dL (12.0-16.0); LYMPH # 2.2 (1.2-3.4); LYMPH % 34.7 % (22.0-35.0); MEAN CELL VOLUME 95.8 fl (80.0-105.0); MEAN CORPUSCULAR HEMOGLOBIN 30.9 pg (25.0-35.0); MEAN CORPUSCULAR HGB CONC 32.3 g/dl (31.0-37.0); MEAN PLATELET VOLUME 11.6 fl (7.0-11.0); MONO # 0.4 (0.1-0.6); MONO % 5.6 % (1.0-6.0); RBC 4.75 10^6/uL (3.5-6.1); WHITE BLOOD COUNT 6.2 10^3/uL (4.5-11.0)
[2018-05-08] MEDS: Insulin Lispro (humaLOG) LOW Coverage SC SCH ×4 (07:49→21:48)
--- NOTE | 2018-05-08 08:28 | PN ---
DATE: 05/07/2018 ENDOCRINOLOGY FOLLOWUP NOTE LOCATION: Room 264. SUBJECTIVE: This is an 82-year-old female with recent uncontrolled type 2 insulin-requiring diabetes presenting here with progressively worsening dizziness and near syncopal episodes and is now being followed closely for metabolic management. Her glycemic levels are fluctuating but improved and the glucose values have ranged from 139 to 172 mg/dL. However, it was elevated at 378 at bedtime last night. The chemistry showed a BUN of 20, sodium 140, potassium 4.1, chloride 105, CO2 of 31, glucose is 153 and creatinine 0.9. So at this time, we will modify her premixed insulin regimen and increase the Humulin 70/30 to 20 units before breakfast and 16 units before dinner to start today. We will continue the low-dose correction scale using Humalog insulin as given. We will obtain serial chemistries and supplement accordingly needed. We will follow. Diann Moreno MD
[2018-05-08 08:37] LABS: ALB/GLOB RATIO 1.1 (1.1-1.8); ALBUMIN 3.6 g/dL (3.0-4.8); ALT/SGPT 20 U/L (7-56); AST/SGOT 10 U/L (14-36); BLOOD UREA NITROGEN 20 mg/dL (7-21); CALCIUM 10.6 mg/dL (8.4-10.5); GFR NON-AFRICAN AMERICAN > 60
[2018-05-08] MEDS: Insulin Human NPH/Reg 70/30 Vial(3 ml) SC SCH ×2 (08:44→17:04)
[2018-05-08] MEDS: Levothyroxine 112 MCG TAB PO SCH (08:44)
[2018-05-08 08:59] LABS: INR 2.83; PROTHROMBIN TIME 33.2 SECONDS (9.4-12.5)
[2018-05-08] MEDS: MYBETRIQ 50 MG PO SCH (09:34)
[2018-05-08] MEDS: Nystatin 100,000 Units/gm Topical Pow(15 gm) TOP SCH ×3 (09:34→17:19)
[2018-05-08] MEDS: BUDESONIDE 3 MG PO SCH (09:37)
--- NOTE | 2018-05-08 12:03 | PN ---
DATE: 05/08/2018 SUBJECTIVE: Melba Fuentes presenting with near syncope hyperglycemic accelerations as noted thereof. Her glycemic levels overnight have improved and are ranging from 144 to 580 mg/dL. Her chemistries showed , sodium 140, potassium 3.8, chloride 107, CO2 of 31, glucose 144 and creatinine 0.9. So, at this time, we will continue the same premixed insulin regimen to allow for dose equilibration since it was just modified yesterday as ordered. We will continue her Humulin 70/30 given as 20 units before breakfast and 16 units before dinner as ordered. We will continue also the dose correction scale using Humalog insulin as given. We will obtain serial chemistries and supplement accordingly as needed. We will follow. Diann Moreno MD
--- NOTE | 2018-05-08 16:43 | CP.PCM.PCO ---
Physician Communication Note - Physician Communication Note Physician Communication Note: medically cleared, for DC home tommorow
--- NOTE | 2018-05-08 20:54 | PN ---
DATE: 05/08/2018 SUBJECTIVE: An 82-year-old female. Nursing staff relates there were no particular problems during the night. PHYSICAL EXAMINATION VITAL SIGNS: The patient's temp is 98.7, pulse is 60, blood pressure is 157/74, respirations are 19. GENERAL: She is alert and oriented x3. NECK: Supple. LUNGS: Clear. HEART: In S1 and S2 rhythm. ABDOMEN: Soft and obese with positive bowel sounds. SKIN: There is mild erythema under the breasts and in the abdominal creases. EXTREMITIES: Show no evidence of edema. LABORATORY DATA: Shows a WBC of 6.2, RBC 4.75, hemoglobin 14.7, hematocrit 45.5, platelet count is 171. PT is 33.2 and INR 2.83. Chemistry shows normal electrolytes, BUN is 20, creatinine is 0.9. Random blood sugar is 144. Her serum calcium is 10.6. Her LFTs are normal. Her total bilirubin is normal. MEDICATIONS: Currently, the patient is on meclizine, Celexa, Myrbetriq, Entocort, insulin, Klonopin, Norvasc, nystatin, Synthroid and Tylenol. She is also on Coumadin. IMPRESSION AND PLAN: 1. She has a history of paroxysmal atrial fibrillation. 2. She had a recent presyncopal dizziness episode. She is on her Antivert, being followed by Neurology. 3. She has insulin-dependent diabetes and hypothyroid disease, being followed by Endocrinology. 4. She also has a history of primary being followed by Nephrology. She had a series of x-rays of the thoracic, cervical and lumbar spine, which were reported as negative. She has been seen by Cardiology for bradyarrhythmia with no intervention at this time. She is receiving occupational and physical therapy with gait training. It has been clearly explained to the patient and her daughter the benefit of having physical therapy because of the fall history and the risk of fall with more severe possible consequences. We will continue current level of care at this time. She is reported to have had an episode of diarrhea. She does have a history of colitis, and a request has been made to see her watch repair technician for this. We will continue the occupational and physical therapy and follow up her PT and INR and continue current level of care as recommended by the individual consultants. Deena Jones MD [facility] # [id number]
--- NOTE | 2018-05-08 23:55 | PN ---
DATE: 05/08/2018 SUBJECTIVE: The patient is seen, lying in bed. She is awake. She is alert. She is comfortable. She denies any dizziness. She denies any lightheadedness. PHYSICAL EXAMINATION: GENERAL: Elderly lady, lying in bed. VITAL SIGNS: Blood pressure 157/74, heart rate 60, respiratory rate 18, temperature 98.7. HEENT: Normocephalic, atraumatic. NECK: Supple, no JVD. LUNGS: Bilateral equal air entry, bilateral equal expansion. CARDIAC: S1 and S2, regular rate and rhythm. No murmur, no rub. ABDOMEN: Obese, distended, soft, nontender, bowel sounds present. EXTREMITIES: No lower extremity edema. LABORATORY DATA: WBC 6.2, hemoglobin 14.7, hematocrit 45.5, platelets 171. Sodium 140, potassium 3.8, chloride 107, CO2 is 31, BUN 20, creatinine 0.9, glucose , albumin 3.6, corrected calcium 10.8. CURRENT MEDICATIONS: Antivert, Celexa, insulin, Klonopin, amlodipine 5, Synthroid, Tylenol. ASSESSMENT: 1. Dizziness, lightheadedness ?orthostatic hypotension. 2. Primary hyperparathyroidism, hypercalcemia mild. 3. Hypertension. 4. Kda-gfcfaca-zyvigxwxx diabetes mellitus. 5. Obesity. PLAN: 1. No evidence of orthostatic hypotension, continue amlodipine 5 mg daily. 2. Mild hypercalcemia, no indication for any kind of therapeutic intervention. 3. Physical therapy. 4. Discharge . Trinh Ramos MD
[2018-05-09 06:31] VITALS: O2SAT 97
[2018-05-09 07:10] LABS: INR 2.56
[2018-05-09] MEDS: Insulin Human NPH/Reg 70/30 Vial(3 ml) SC SCH (08:40)
[2018-05-09] MEDS: Insulin Lispro (humaLOG) LOW Coverage SC SCH (08:41)
--- NOTE | 2018-05-09 10:03 | CP.PCM.CON ---
<Yobany Somers - Last Filed: 05/09/18 09:59> History of Present Illness - History of Present Illness History of Present Illness: PGY-4 GI Fellow Consult Note Pt is an 82 yo WF with Lymphocytic Colitis, Afib (on warfarin), CAD s/p stenting, HTN, HLD, DM, Hypothyroid, Cerebellar Ataxia who was originally admitted several days ago for pre-syncope. GI later consult for colitis. Currently she states that she is doing well since admission and eager to return home. She states BM are 1-2 loose brown per day without abd pain. She reports compliance with her budesonide and reports taking PRN loperamide. She states that she is tolerating diet without issues and has not noticed any black/red stools, weight loss, dysphagia. 12 point ROS negative other than stated above MHx: See above SurgHx: Cholecystecomy, Appendectomy, Cataract Surgery Meds: Reviewed in chart FamHx: Denied GI problems SocHx: Denied x 3 All: Pork CSPY 10/05/15: Biopsy proven lymphocytic colitis throughout entire colon, 1 TA <1cm, diverticulosis Past Patient History - Infectious Disease Hx of Infectious Diseases: None - Tetanus Immunizations Tetanus Immunization: Up to Date - Past Social History Smoking Status: Former Smoker - CARDIAC Hx Cardiac Disorders: Yes Hx Hypertension: Yes - PULMONARY Hx Respiratory Disorders: No - NEUROLOGICAL HX Cerebrovascular Accident: Yes (With cerebellar ataxia) - HEENT Hx HEENT Problems: Yes Hx Cataracts: Yes (WITH SX) - RENAL Hx Chronic Kidney Disease: No - ENDOCRINE/METABOLIC Hx Diabetes Mellitus Type 2: Yes Hx Hypothyroidism: Yes - HEMATOLOGICAL/ONCOLOGICAL Hx Blood Disorders: Yes Hx Shingles: Yes - INTEGUMENTARY Hx Dermatological Problems: Yes Hx Eczema: Yes Other/Comment: 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 on radiation therapy - MUSCULOSKELETAL/RHEUMATOLOGICAL Hx Musculoskeletal Disorders: Yes Hx Falls: Yes Hx Unsteady Gait: Yes (CANE) - GASTROINTESTINAL Hx Gastrointestinal Disorders: Yes (CHOLECYSTECTOMY,APPENDECTOMY,) Hx Gastroesophageal Reflux: Yes - GENITOURINARY/GYNECOLOGICAL Hx Genitourinary Disorders: No - PSYCHIATRIC Hx Psychophysiologic Disorder: Yes Hx Anxiety: Yes Hx Substance Use: No - SURGICAL HISTORY Hx Appendectomy: Yes Hx Cardiac Catheterization: Yes (3 stents) Hx Cholecystectomy: Yes Hx Coronary Stent: Yes Hx Hysterectomy: Yes Other/Comment: TONSILLECTOMY - ANESTHESIA Hx Anesthesia: Yes Hx Anesthesia Reactions: No Hx Malignant Hyperthermia: No Meds Allergies/Adverse Reactions: Allergies Allergy/AdvReac Type Severity Reaction Status Date / Time lactose Allergy Severe DIARRHEA Verified 05/03/18 18:57 Pork/Porcine Containing Allergy Severe VOMITING Verified 05/03/18 18:57 Products - Medications Medications: Current Medications Acetaminophen (Tylenol 325mg Tab) 650 mg PO Q8H PRN PRN Reason: Pain, moderate (4-7) Last Admin: 05/08/18 19:03 Dose: 650 mg Amlodipine Besylate (Norvasc) 5 mg PO DAILY [facility] Last Admin: 05/08/18 09:35 Dose: 5 mg Citalopram Hydrobromide (Celexa) 20 mg PO QAM [facility] Last Admin: 05/08/18 09:35 Dose: 20 mg Clonazepam (Klonopin) 0.5 mg PO Q12 [facility]; Protocol Last Admin: 05/08/18 21:51 Dose: 0.5 mg Home Med (Home Med) 0 unit PO DAILY [facility] Last Admin: 05/08/18 09:34 Dose: 1 unit Home Med (Home Med) 0 unit PO DAILY [facility] Last Admin: 05/08/18 09:37 Dose: 3 unit Insulin Human Lispro (Humalog Low) 0 units SC ACHS [facility]; Protocol Last Admin: 05/09/18 08:41 Dose: 1 units Levothyroxine Sodium (Synthroid) 112 mcg PO ACB [facility] Last Admin: 05/08/18 08:44 Dose: 112 mcg Meclizine HCl (Antivert) 25 mg PO BID [facility] Last Admin: 05/08/18 17:19 Dose: 25 mg Nystatin (Nystop Topical Powder) 0 gm TOP TID [facility] Last Admin: 05/08/18 17:19 Dose: 3 applic Physical Exam - Constitutional Appears: Well, No Acute Distress - Head Exam Head Exam: ATRAUMATIC, NORMAL INSPECTION - Eye Exam Eye Exam: EOMI. absent: Scleral icterus - ENT Exam ENT Exam: Mucous Membranes Moist. absent: Mucous Membranes Dry - Respiratory Exam Respiratory Exam: Clear to Auscultation Bilateral, NORMAL BREATHING PATTERN. absent: Accessory Muscle Use, Respiratory Distress - Cardiovascular Exam Cardiovascular Exam: REGULAR RHYTHM, RRR - GI/Abdominal Exam GI & Abdominal Exam: Normal Bowel Sounds, Soft - Rectal Exam Rectal Exam: Deferred, NORMAL INSPECTION - Extremities Exam Extremities exam: Positive for: normal inspection. Negative for: pedal edema - Neurological Exam Neurological exam: Alert, CN II-XII Intact - Psychiatric Exam Psychiatric exam: Normal Affect, Normal Mood - Skin Skin Exam: Normal Color, Warm Results - Vital Signs Recent Vital Signs: Last Vital Signs Temp 97.3 F L 05/09/18 06:00 Pulse 58 L 05/09/18 06:00 Resp 19 05/09/18 06:00 BP 159/71 H 05/09/18 06:00 Pulse Ox 97 05/09/18 06:00 - Labs Result Diagrams: 05/08/18 07:00 05/08/18 08:20 Labs: Laboratory Results - last 24 hr 05/08/18 05/08/18 05/08/18 11:26 16:31 21:03 PT INR POC Glucose (mg/dL) 145 H 210 H 175 H 05/09/18 05/09/18 06:30 08:04 PT 30.0 H INR 2.56 POC Glucose (mg/dL) 161 H Assessment & Plan - Assessment and Plan (Free Text) Assessment: 82 yo WF with Lymphocytic Colitis, Afib (on warfarin), CAD s/p stenting, HTN, HLD, DM, Hypothyroid, Cerebellar Ataxia who was originally admitted several days ago for pre-syncope. GI later consult for colitis. # Colitis, Lymphocytic: Pt maintained on budesonide 9 mg /day as outpatient, PRN loperamide. Stools well controlled and pt tolerating diet. Plan: - Cont home budesonide - Loperamide PRN - Outpatient f/u with Dr. Merritt Thank you for the consult; will sign off. Please call if questions. <Liam Merritt Y - Last Filed: 05/09/18 10:26> Meds - Medications Medications: Current Medications Acetaminophen (Tylenol 325mg Tab) 650 mg PO Q8H PRN PRN Reason: Pain, moderate (4-7) Last Admin: 05/08/18 19:03 Dose: 650 mg Amlodipine Besylate (Norvasc) 5 mg PO DAILY [facility] Last Admin: 05/08/18 09:35 Dose: 5 mg Citalopram Hydrobromide (Celexa) 20 mg PO QAM [facility] Last Admin: 05/08/18 09:35 Dose: 20 mg Clonazepam (Klonopin) 0.5 mg PO Q12 [facility]; Protocol Last Admin: 05/08/18 21:51 Dose: 0.5 mg Home Med (Home Med) 0 unit PO DAILY [facility] Last Admin: 05/08/18 09:34 Dose: 1 unit Home Med (Home Med) 0 unit PO DAILY [facility] Last Admin: 05/08/18 09:37 Dose: 3 unit Insulin Human Lispro (Humalog Low) 0 units SC ACHS [facility]; Protocol Last Admin: 05/09/18 08:41 Dose: 1 units Levothyroxine Sodium (Synthroid) 112 mcg PO ACB [facility] Last Admin: 05/08/18 08:44 Dose: 112 mcg Meclizine HCl (Antivert) 25 mg PO BID [facility] Last Admin: 05/08/18 17:19 Dose: 25 mg Nystatin (Nystop Topical Powder) 0 gm TOP TID [facility] Last Admin: 05/08/18 17:19 Dose: 3 applic Results - Vital Signs Recent Vital Signs: Last Vital Signs Temp 97.3 F L 05/09/18 06:00 Pulse 58 L 05/09/18 06:00 Resp 19 05/09/18 06:00 BP 159/71 H 05/09/18 06:00 Pulse Ox 97 05/09/18 06:00 - Labs Result Diagrams: 05/08/18 07:00 05/08/18 08:20 Labs: Laboratory Results - last 24 hr 05/08/18 05/08/18 05/08/18 11:26 16:31 21:03 PT INR POC Glucose (mg/dL) 145 H 210 H 175 H 05/09/18 05/09/18 06:30 08:04 PT 30.0 H INR 2.56 POC Glucose (mg/dL) 161 H Attending/Attestation - Attestation I have personally seen and examined this patient.: Yes I have fully participated in the care of the patient.: Yes I have reviewed all pertinent clinical information: Yes Notes (Text): 05/09/18 10:22 I have seen and examined patient with GI fellow. Agree with above documentation with the following additions. In brief, this is an 82 year old female with history of atrial fibrillation on coumadin, CAD s/p stent, HTN, DM, hyperlipidemia, microscopic colitis on budesonide therapy who was admitted to hospital for workup of near syncope. GI called for evaluation of chronic lymphocytic colitis. She reports having two loose bowel movements yesterday, none overnight. She otherwise denies abdominal pain, nausea, vomiting, fever/chills, weight loss, or rectal bleeding. She is tolerating PO diet without difficulty. She has been maintained on 9mg budesonide with inability to taper regimen due to recurrent diarrhea. She had a colonoscopy in 2016 which showed lymphocytic colitis, adenomatous polyp, diverticulosis. Additional physical examination: Abdomen: no palpable hepato/splenomegaly Atrial fibrillation on coumadin CAD s/p stent DM/HTN Chronic lymphocytic colitis - Diet as tolerated - Continue with budesonide therapy at lowest dose possible to control diarrhea - May use immodium PRN for symptomatic relief - No further planned GI intervention at this time, will sign off case. Patient should have outpatient follow up after resolution of acute medical issues. Please reconsult as necessary, thank you. Case discussed with Dr. Jones.
[2018-05-09] MEDS: Levothyroxine 112 MCG TAB PO SCH (10:37)
[2018-05-09] MEDS: MYBETRIQ 50 MG PO SCH (10:39)
[2018-05-09] MEDS: Nystatin 100,000 Units/gm Topical Pow(15 gm) TOP SCH (10:42)
[2018-05-09] MEDS: BUDESONIDE 3 MG PO SCH (10:48)
[2018-05-09 12:43] VITALS: BP 161/76; PULSE 58; RESP 18; TEMP 97.5
--- NOTE | 2018-05-09 15:58 | PN ---
DATE: 05/09/2018 ENDOCRINOLOGY FOLLOWUP NOTE LOCATION: Room 264. SUBJECTIVE: This is an 82-year-old female admitted with near syncope and altered mental status and is now being followed closely also for metabolic management because of recent hyperglycemic accelerations as noted thereof. Her glucose values are fluctuating and ranging from 178-208 mg/dL. LABORATORY DATA: Her chemistry showed a BUN of 20, sodium 138, potassium 4.4, chloride 102, CO2 of 32, glucose 209 and creatinine 1.1. ASSESSMENT AND PLAN: So at this time, we will continue the same premixed insulin regimen as given with Humulin 70/30 given as 20 units before breakfast and 16 units before dinner as ordered. We will continue the low-dose correction scale using regular insulin as given. We will continue also the levothyroxine given as 112 mcg once daily pending the repeat thyroid studies ordered accordingly. We will follow. Diann Moreno MD
--- NOTE | 2018-05-09 21:42 | PN ---
DATE: 05/09/2018 SUBJECTIVE: The patient is seen lying in bed. She is comfortable. PHYSICAL EXAMINATION: GENERAL: Elderly lady lying in bed. VITAL SIGNS: Blood pressure 160/70, heart rate 52, respiratory rate 18, temperature 97.5. HEENT: Normocephalic, atraumatic, positive pallor, no icterus. NECK: Supple, no JVD. LUNGS: Bilateral equal entry, bilateral equal expansion. CARDIAC: S1 and S2, regular rate and rhythm, no murmur, no rub. ABDOMEN: Obese, distended, soft, nontender, bowel sounds present. EXTREMITIES: No lower extremity edema. INTAKE AND OUTPUT: Not charted. LABORATORY DATA: No new labs. MEDICATIONS: Antivert, Celexa, Klonopin, amlodipine 5, Synthroid 112, Tylenol, and Coumadin. ASSESSMENT: 1. Dizziness, secondary to vertigo, no evidence of orthostatic hypotension. 2. Supine hypertension. 3. Non-insulin dependent diabetes mellitus. 4. Primary hyperparathyroidism with borderline high calcium. 5. Obesity. PLAN: 1. Continue amlodipine 5 mg daily. 2. Monitor calcium intermittently. 3. No objection to discharge. Trinh Ramos MD
--- NOTE | 2018-05-09 22:03 | DS ---
HISTORY OF PRESENT ILLNESS: This is an 82-year-old female admitted to [facility] with a history of near syncope and dizziness, and vertigo with a history of hyperglycemia, hypocalcemia, bradyarrhythmia, history of fungal rash, history of cerebellar ataxia, history of colitis, paroxysmal atrial fibrillation. MEDICATIONS: The patient will be on meclizine 25 mg b.i.d., Celexa 20 mg daily, Myrbetriq, Entocort, Klonopin 0.5 every 12, Norvasc 5 daily, nystatin powder, Synthroid 112, warfarin 2.5 mg daily. ASSESSMENT AND PLAN: She was followed in the hospital by Endocrinology, GI, renal and Cardiology. She will be followed as an outpatient. She has a gait disorder, was recommended to ambulate with a wide-based cane. She had x-rays of the thoracic, cervical, lumbar spine which are negative. Chest x-ray was clear, and also seen by Neurology, and a negative CT of the head. Deena Jones MD
== END 2018-05-09 17:50 | disposition home or self-care (01) | DRG 149 ==
LOC: ED 18:53 → ERH 05-04 00:15 → 3RNO 05-04 02:10 → OBSVTOIN 05-05 08:53 → 2RNO 05-06 14:24
PROVIDERS: ADMIT Internal Medicine; ATTEND Internal Medicine
DX: H81.10 Benign paroxysmal vertigo, unspecified ear (principal); R17 Unspecified jaundice; G32.81 Cerebellar ataxia in diseases classified elsewhere; I10 Essential (primary) hypertension; E03.9 Hypothyroidism, unspecified; I25.10 Atherosclerotic heart disease of native coronary artery without angina pectoris; I48.0 Paroxysmal atrial fibrillation; F41.9 Anxiety disorder, unspecified; E11.65 Type 2 diabetes mellitus with hyperglycemia; E11.42 Type 2 diabetes mellitus with diabetic polyneuropathy; R00.1 Bradycardia, unspecified; E21.0 Primary hyperparathyroidism; K52.832 Lymphocytic colitis; I67.9 Cerebrovascular disease, unspecified; K21.9 Gastro-esophageal reflux disease without esophagitis; E78.5 Hyperlipidemia, unspecified; E66.9 Obesity, unspecified; Z68.34 Body mass index [BMI] 34.0-34.9, adult; Z85.828 Personal history of other malignant neoplasm of skin; Z79.01 Long term (current) use of anticoagulants; Z79.4 Long term (current) use of insulin; Z87.891 Personal history of nicotine dependence